=== PATIENT | female | born 1955 | race Caucasian/White ===

== ENCOUNTER → 2018-05-29 | Day surgery (SDC) | payer OTHER ==
[~2018-05-29] MED LIST: CEFTRIAXONE SOD 1 GM VIAL ONE; CYMBALTA30 MG PO; DEXAMETHASONE SOD PHOS INJ 4 MG/ML VIAL ONE; FENTANYL CITRATE/PF 100MCG/2 ML INJ ONE; GLIPIZIDE ER5 MG PO; IOPAMIDOL 610MG/1ML 300 MG/ML VIAL IV ONE; LIDOCAINE HCL 2% LOCAL INJ 5 ML SDV VIAL INJ ONE; METFORMIN HCL500 M2 PO; METOPROLOL TART50 MG PO; MIDAZOLAM HCL 2 MG/2 ML VIAL ONE; NORCO 10-325 T1 EACH PO; OMEPRAZOLE40 MG PO; ONDANSETRON HCL INJ 2 MG/ML VIAL ONE; PROPOFOL IV EMULSION 10 MG/ML 20 ML VIAL ONE; RANITIDINE HCL150 MG PO; SEVOFLURANE INHAL SOLN 250 ML PEN BTL ONE; SYNTHROID100 MCG PO; VIT D2 PO; ZOFRAN ODT4 MG PO; ZOLPIDEM TARTRA10 MG PO
--- OUTSIDE RECORDS SUMMARY | 2018-05-29 08:37 | XMS REPORT ---
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 Role Phone Megan Sanchez CP Unavailable Allergies No Known Allergies Problems Problem Type Condition Code Onset Dates Condition Status Problem Rheumatoid arthritis of multiple sites without rheumatoid factor M06.09 Active Problem Chronic pain disorder G89.4 Active Problem Rheumatoid arthritis without rheumatoid factor, unspecified ankle and foot M06.079 Active Problem Pain in joint, hand 719.44 Active Problem Rheumatoid arthritis without elevated rheumatoid factor M06.00 Active Problem Rheumatoid arthritis 714.0 Active Medications No Known Medications Results No Known Results Summary Purpose [employer] Submission
--- OUTSIDE RECORDS SUMMARY | 2018-05-29 08:37 | XMS REPORT ---
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 Info Not Available Non Drug Allergy Problems Problem Type Condition Code Onset Dates Condition Status Assessment Chronic pain G89.29 Active Assessment Counseling NOS Z71.9 Active Assessment High risk medication use Z79.899 Active Assessment Pain in right hand M79.641 Active Problem Rheumatoid arthritis of multiple sites without rheumatoid factor M06.09 Active Problem Chronic pain disorder G89.4 Active Problem Rheumatoid arthritis without rheumatoid factor, unspecified ankle and foot M06.079 Active Problem Pain in joint, hand 719.44 Active Assessment Rheumatoid arthritis without rheumatoid factor, unspecified ankle and foot M06.079 Active Problem Rheumatoid arthritis without elevated rheumatoid factor M06.00 Active Problem Rheumatoid arthritis 714.0 Active Medications Medication Code System Code Instructions Start Date End Date Status Dosage Levothyroxine Sodium ND 28744431182 Orally Once a day Active 1 tablet on an empty stomach in the morning Lyrica ND 45375732569 75 MG Orally bedtime Active 1 capsule Aspir-81 [facility] 27042988030 81 MG Orally Once a day Active 1 tablet Amitriptyline HCl ND 43238184601 75 MG Orally Once a day Active 1 tablet at bedtime Metoprolol Tartrate ND 79079502001 100 MG Orally Twice a day Active 1 tablet Hydrocodone NDC 0 10.325 Oral BID Jul 13, 2017 Active 1 tab Enbrel SureClick ND 47155426193 50 MG/ML Subcutaneous Once a week Inactive 1 ml Pantoprazole Sodium ND 33489146592 20 MG Orally Once a day Active 1 packet Atorvastatin Calcium ND 93473386580 10 MG Orally Once a day Active 1 tablet Vital Signs Date/Time: May 14, 2017 Height 62 in Blood Pressure Diastolic 78 mm Hg Blood Pressure Systolic 121 mm Hg Weight 177.0 lbs Results No Known Results Summary Purpose [employer] Submission
--- OUTSIDE RECORDS SUMMARY | 2018-05-29 08:37 | XMS REPORT ---
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 Role Phone Megan Sanchez CP Unavailable Allergies No Known Allergies Problems Problem Type Condition Code Onset Dates Condition Status Assessment Chronic pain G89.29 Active Assessment Counseling NOS Z71.9 Active Assessment High risk medication use Z79.899 Active Problem Rheumatoid arthritis of multiple sites without rheumatoid factor M06.09 Active Problem Chronic pain disorder G89.4 Active Problem Rheumatoid arthritis without rheumatoid factor, unspecified ankle and foot M06.079 Active Problem Pain in joint, hand 719.44 Active Assessment Rheumatoid arthritis without rheumatoid factor, unspecified ankle and foot M06.079 Active Problem Rheumatoid arthritis without elevated rheumatoid factor M06.00 Active Problem Rheumatoid arthritis 714.0 Active Assessment Rheumatoid arthritis of multiple sites without rheumatoid factor M06.09 Active Assessment Chronic pain disorder G89.4 Active Assessment Pain in right hand M79.641 Active Assessment Screening for breast cancer Z12.39 Active Assessment Pain of left hand M79.642 Active Medications Medication Code System Code Instructions Start Date End Date Status Dosage Atorvastatin Calcium [facility] [address]-76 10 MG Orally Once a day Active 1 tablet Aspir-81 [facility] [address]-99 81 MG Orally Once a day Active 1 tablet Metoprolol Tartrate [facility] [address]-18 100 MG Orally Twice a day Active 1 tablet Levothyroxine Sodium [facility] [address]-23 Orally Once a day Active 1 tablet on an empty stomach in the morning Enbrel SureClick [facility] [address]-03 50 MG/ML Subcutaneous Once a week Inactive 1 ml Amitriptyline HCl [facility] [address]-89 75 MG Orally Once a day Active 1 tablet at bedtime Pantoprazole Sodium [facility] [address]-29 20 MG Orally Once a day Active 1 packet Orencia ClickJect [facility] [address]-53 125 MG/ML Subcutaneous December 11, 2016 January 10, 2017 Active 1 ml Vital Signs Date/Time: December 11, 2016 Height 62 in Blood Pressure Diastolic 85 mm Hg Blood Pressure Systolic 167 mm Hg Weight 174 lbs Results No Known Results Summary Purpose [employer] Submission
--- OUTSIDE RECORDS SUMMARY | 2018-05-29 08:37 | XMS REPORT | Clinical Summary ---
Author Author [facility] Organization [facility] Address Unknown Phone Unavailable Care Team Providers Care Wheel Lacer And Truer Name Role Phone Gin Sumner MD PCP Allergies No Known Allergies Current Medications Prescription Sig. Disp. Refills Start End Date Status Date metoprolol tartrate Take 50 mg by mouth 2 Active (LOPRESSOR) 50 mg tablet (two) times a day. atorvastatin (LIPITOR) 40 Take 40 mg by mouth 12/27/19 Active MG tablet daily. 17 pantoprazole (PROTONIX) Take 20 mg by mouth 12/27/19 Active 20 MG EC tablet daily. 17 metFORMIN (GLUCOPHAGE) Take 500 mg by mouth 2 12/27/19 Active 500 mg tablet (two) times a day with 17 meals. HYDROcodone-acetaminophen Take 1 tablet by mouth 2 12/27/19 Active (NORCO) 10-325 mg per (two) times a day. 17 tablet aspirin (ECOTRIN) 81 MG Take 81 mg by mouth 12/27/19 Active enteric coated tablet daily. 17 amitriptyline (ELAVIL) 75 Take 37.5 mg by mouth 12/27/19 Active MG tablet nightly. 17 Active Problems Problem Noted Date Chest pain 12/26/2016 Family History Medical History Relation Name Comments Cancer Father Kidney disease Father Miscarriages / Father Stillbirths COPD Mother Relation Name Status Comments Father Mother Social History Tobacco Use Types Packs/Day Years Used Date Former Smoker Cigarettes Quit: 12/26/1981 Alcohol Use Drinks/Week oz/Week Comments Yes 1 Glasses of 0.6 veryb seldom wine Sex Assigned at Date Recorded Not on file Last Filed Vital Signs Not on file Plan of Treatment Health Maintenance Due Date Last Done Comments CERVICAL CANCER SCREENING 12/04/1975 BREAST CANCER SCREENING 2004 COLON CANCER SCREENING 2004 SHINGRIX VACCINE (#1) 2004 ZOSTER VACCINE 2014 INFLUENZA VACCINE 03/05/2018 Results Not on fileafter 05/28/2017 Insurance Payer Benefit Subscriber ID Type Phone Address Plan / Group Buggl [facility] xxxxxxxxxxxx Exchange EXCHANGE [facility] EXCHANGE [employer] E
--- OUTSIDE RECORDS SUMMARY | 2018-05-29 08:37 | XMS REPORT | Continuity of Care Document ---
Author Author [facility] Interface Address Unknown Phone Unavailable Problems Problem Status Onset Date Classification Date Reported Comments Source Rheumatoid arthritis of multiple sites without rheumatoid factor Active Problem 04/03/2018 Megan Naconradm Chronic pain disorder Active Problem 04/03/2018 Megan Najam Rheumatoid arthritis without rheumatoid factor, unspecified ankle and foot Active Diagnosis 04/03/2018 Megan Najam Pain in joint, hand Active Problem 04/03/2018 Megan Najam Rheumatoid arthritis without elevated rheumatoid factor Active Problem 04/03/2018 Megan Najam Rheumatoid arthritis Active Problem 04/03/2018 Megan Naconradm Chronic pain Active Diagnosis 04/03/2018 Megan Ariellem Counseling NOS Active Diagnosis 04/03/2018 Megan Daniel High risk medication use Active Diagnosis 04/03/2018 Megan Naconradm Pain in right hand Active Diagnosis 04/03/2018 Megan Naconradm Screening for breast cancer Active Diagnosis 03/14/2017 Megan Naconradm Pain of left hand Active Diagnosis 03/14/2017 Megan Donaldsonbel Primary insomnia Active Problem 04/03/2018 Megan Daniel monitorring of highrisk meds Active Diagnosis 08/13/2014 Megan Ariellem Counseling NOS Active Diagnosis 11/28/2014 Megan Naconradm Cervical radicular pain Active Diagnosis 08/08/2016 Megan Naconradm Right hand pain Active Diagnosis 01/26/2016 Megan Naconradm Rheumatoid arthritis without rheumatoid factor Active Diagnosis 03/27/2016 Megan Daniel Unspecified 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 hepatic coma Active Diagnosis 11/28/2014 Megan Daniel Chronic pain syndrome Active Diagnosis 11/28/2014 Megan Sanchez Medications Medication Details Route Status Patient Instructions Ordering Provider Order Date Source Hydrocodone-Acetaminophen 1 tablet as needed Orally Active 10- 325 MG Orally bid Najam 03/23/2018 Megan Naconradm Cyclobenzaprine HCl 1 tablet as needed Orally Active 10 mg Orally bedtime Najam 09/17/2017 Megan Naconradm Hydrocodone 1 tab Oral Active 10.325 Oral BID Najam 07/13/2017 Megan Daniel Lyrica 1 capsule Orally Active 75 MG Orally Twice a day [facility] 02/12/2017 Megankelvin Sanchez Orencia ClickJect 1 ml Subcutaneous Active 125 MG/ML Subcutaneous [facility] 12/11/2016 Megan Daniel Hydrocodone 1 tab Oral Active 10.325 Oral BID [facility] 2016 Megan Daniel Enbrel SureClick 1 ml Subcutaneous Active 50 MG/ML Subcutaneous Once a week [facility] 09/25/2016 Megan Nabel Hydrocodone 1 tab Oral Active 10.325 Oral BID [facility] 05/25/2016 Megan Nabel Hydrocodone 1 tab Oral Active 10.325 Oral BID [facility] 03/25/2016 Megan Daniel Hydrocodone-Acetaminophen 1 tablet as needed Orally Active 10- 325 MG Orally every 6 hrs [facility] 06/09/2015 Megan Daniel Enbrel SureClick 1 ml Subcutaneous Active 50 MG/ML Subcutaneous once weekly [facility] 07/13/2014 Megankelvin Sanchez Humira Pen 0.8 Subcutaneous No Longer Active 40 MG/0.8ML Subcutaneous every 2 weeks [facility] 10/27/2012 Megan Nabel Atorvastatin Calcium 1 tablet Orally Active 10 MG [facility]ally [facility] Aspir-81 1 tablet Orally Active 81 MG [facility] Metoprolol Tartrate 1 tablet Orally Active 100 MG [facility] Levothyroxine Sodium 1 tablet on an empty stomach in the morning Orally Active Orally Once a day [facility] Megan Naconrad Enbrel SureClick 1 ml Subcutaneous Active 50 MG/ML Subcutaneous [facility] Amitriptyline HCl 1 tablet at bedtime Orally Active 75 MG Orally Once a day [place] Megan Najam Pantoprazole Sodium 1 packet Orally Active 20 MG Orally Once a day [place] Megan Naja Levothyroxine Sodium 1 tablet on an empty stomach in the morning Orally Active Orally Once a day [place] Megan Naconradm Lyrica 1 capsule Orally Active 75 MG Orally [facility] Aspir-81 1 tablet Orally Active 81 MG Orally Once a day [place] Megan Najam Amitriptyline HCl 1 tablet at bedtime Orally Active 75 MG Orally Once a day N[facility]rad Megan Sanchez Metoprolol Tartrate 1 tablet Orally Active 100 MG Orally Twice a day [facility] Megan Guzmán Enbrel SureClick 1 ml Subcutaneous Active 50 MG/ML Subcutaneous Once a week [facility] Megan Nabel Pantoprazole Sodium 1 packet Orally Active 20 MG Orally Once a day [facility] Megan Nabel Atorvastatin Calcium 1 tablet Orally Active 10 MG Orally Once a day [facility] Megan Naconrad Hydrocodone-Acetaminophen 1 tablet as needed Orally Active 10- 325 MG Orally bid [facility] Megan Nabel GlipiZIDE 1 tablet Orally Active 10 MG Orally Once a day Arielle Megan Guzmán Cyclobenzaprine HCl 1 tablet as needed Orally Active 10 mg Orally bedtime Arielle Megan Nabel Nexium 1 capsule Orally Active 20 MG Orally Once a day Arielle Megan Naconrad Omeprazole 1 capsule Orally Active 40 MG Orally Once a day Arielle Megan Guzmán Lyrica 1 capsule Orally Active 75 MG Orally Twice a day Arielle Megan Guzmán Losartan Potassium 1 tablet Orally Active 50 MG Orally Once a day [facility] Megan Guzmán Levothyroxine Sodium 1 tablet on an empty stomach in the morning Orally Active 50 MCG Orally Once a day [facility] Megan Guzmán Hydrocodone-Acetaminophen 1 tablet as needed Orally Active 10- 325 MG Orally every 6 hrs [facility] Megan Guzmán Enbrel SureClick INJECT 50MG SUBCUTANEOUSLY ONCE WEEKLY DIRECTED NA Active 50 MG/ML N[facility] Megan Nabel Etanercept 1 ml Subcutaneous Active 50 MG/ML Subcutaneous once a week [facility] Megan Guzmán Hydrocodone 1 tab Oral Active Oral BID N[facility]rad Megan Naconrad Allergies, Adverse Reactions, Alerts Substance Category Reaction Severity Reaction type Status Date Reported Comments Source codiene Adverse Reaction itching Adverse Reaction Active 11/25/2014 Megan Daniel PugaKDianeA. Adverse Reaction Info Not Available Adverse Reaction Active 04/02/2018 Megan Sanchez Immunizations Immunization Date Given Site Status Last Updated Comments Source Results Order Name Results Value Reference Range Date Interpretation Comments Source Vital Signs Vital Sign Value Date Comments Source Height 62 04/02/2018 Megan Naconradm Diastolic (mm Hg) 69 04/02/2018 Megan Najam Systolic (mm Hg) 123 04/02/2018 Megan Najam Weight 165.6 04/02/2018 Megan Najam Height 62 01/22/2018 Megan Najam Diastolic (mm Hg) 100 01/22/2018 Megan Najam Systolic (mm Hg) 131 01/22/2018 Megan Najam Weight 176.6 01/22/2018 Megan Najam Height 62 11/20/2017 Megan Najam Diastolic (mm Hg) 85 11/20/2017 Megan Najam Systolic (mm Hg) 172 11/20/2017 Megan Najam Weight 179.8 11/20/2017 Megan Najam Height 62 09/17/2017 Megan Najam Diastolic (mm Hg) 79 09/17/2017 Megan Najam Systolic (mm Hg) 142 09/17/2017 Megan Najam Weight 180 09/17/2017 Megan Najam Height 62 07/16/2017 Megan Najam Diastolic (mm Hg) 86 07/16/2017 Megan Najam Systolic (mm Hg) 146 07/16/2017 Megan Najam Weight 180.6 07/16/2017 Megan Najam Height 62 05/14/2017 Megan Najam Diastolic (mm Hg) 78 05/14/2017 Megan Najam Systolic (mm Hg) 121 05/14/2017 Megan Najam Weight 177.0 05/14/2017 Megan Najam Height 62 03/12/2017 Megan Najam Diastolic (mm Hg) 82 03/12/2017 Megan Najam Systolic (mm Hg) 138 03/12/2017 Megan Najam Weight 178 03/12/2017 Megan Najam Height 62 02/12/2017 Megan Najam Diastolic (mm Hg) 77 02/12/2017 Megan Najam Systolic (mm Hg) 132 02/12/2017 Megan Najam Weight 175 02/12/2017 Megan Najam Height 62 12/11/2016 Megan Najam Diastolic (mm Hg) 85 12/11/2016 Megan Najam Systolic (mm Hg) 167 12/11/2016 Megan Najam Weight 174 12/11/2016 Megan Najam Height 62 10/04/2016 Megan Najam Diastolic (mm Hg) 79 10/04/2016 Megan Najam Systolic (mm Hg) 158 10/04/2016 Megan Najam Weight 178.2 10/04/2016 Megan Najam Height 62 09/25/2016 Megan Najam Diastolic (mm Hg) 79 09/25/2016 Megan Najam Systolic (mm Hg) 133 09/25/2016 Megan Najam Weight 177.8 09/25/2016 Megan Najam Height 62 08/07/2016 Megan Najam Diastolic (mm Hg) 77 08/07/2016 Megan Najam Systolic (mm Hg) 151 08/07/2016 Megan Najam Weight 179 08/07/2016 Megan Najam Height 62 06/13/2016 Megan Najam Diastolic (mm Hg) 89 06/13/2016 Megan Najam Systolic (mm Hg) 140 06/13/2016 Megan Najam Weight 176 06/13/2016 Megan Najam Height 62 03/26/2016 Megan Najam Diastolic (mm Hg) 74 03/26/2016 Megan Najam Systolic (mm Hg) 127 03/26/2016 Megan Najam Weight 179.8 03/26/2016 Megan Najam Height 62 01/25/2016 Megan Najam Diastolic (mm Hg) 99 01/25/2016 Megan Najam Systolic (mm Hg) 171 01/25/2016 Megan Najam Weight 179.6 01/25/2016 Megan Najam Height 62 11/07/2015 Megan Najam Diastolic (mm Hg) 80 11/07/2015 Megan Najam Systolic (mm Hg) 174 11/07/2015 Megan Najam Weight 171 11/07/2015 Megan Najam Height 62 11/25/2014 Megan Najam Diastolic (mm Hg) 82 11/25/2014 Megan Najam Systolic (mm Hg) 157 11/25/2014 Megan Najam Weight 182 11/25/2014 Megan Najam Height 62 08/12/2014 Megan Najam Diastolic (mm Hg) 70 08/12/2014 Megan Najam Systolic (mm Hg) 125 08/12/2014 Megan Najam Weight 170 08/12/2014 Megan Sanchez Height 62 07/13/2014 Megan Sanchez Diastolic (mm Hg) 80 07/13/2014 Megan Sanchez Systolic (mm Hg) 162 07/13/2014 Megan Sanchez Weight 170 07/13/2014 Megan aSnchez Encounters Location Location Details Encounter Type Encounter Number Reason For Visit Attending Provider ADM Date DC Date Status Source Rheumatology Clinic Follow Up MRI Results [id number] 07/13/2014 07/13/2014 Megan Sanchez [facility] Follow Up MRI Results [id number] 07/13/2014 07/13/2014 Megan Sanchez [facility] Follow Up MRI Results [id number] 07/13/2014 07/13/2014 Megan Sanchez [facility] Follow Up MRI Results [id number] 07/13/2014 07/13/2014 Megan Sanchez [facility] Follow Up MRI Results [id number] 07/13/2014 07/13/2014 Megan Sanchez [facility] Follow Up MRI Results [id number] 07/13/2014 07/13/2014 Megan Guzmán [facility] Follow Up MRI Results [id number] 07/13/2014 07/13/2014 Megan Sanchez [facility] Follow Up MRI Results [id number] 07/13/2014 07/13/2014 Megan Sanchez [facility] Follow Up MRI Results [id number] 07/13/2014 07/13/2014 Megankelvin Sanchez [facility] Follow Up MRI Results [id number] 07/13/2014 07/13/2014 [facility] Follow Up MRI Results [id number] 07/13/2014 07/13/2014 [facility] Follow Up MRI Results [id number] 07/13/2014 07/13/2014 [facility] Follow Up MRI Results [id number] 07/13/2014 07/13/2014 [facility] Follow Up MRI Results [id number] 07/13/2014 07/13/2014 [facility] Follow Up MRI Results [id number] 07/13/2014 07/13/2014 [facility] pain contract follow [place] [id number] 08/12/2014 08/12/2014 [facility] pain contract follow up [id number] 08/12/2014 08/12/2014 [facility] pain contract follow up [id number] 08/12/2014 08/12/2014 [facility] pain contract follow up [id number] 08/12/2014 08/12/2014 [facility] pain contract follow up [id number] 08/12/2014 08/12/2014 [facility] pain contract follow up [id number] 08/12/2014 08/12/2014 [facility] pain contract follow up [id number] 08/12/2014 08/12/2014 [facility] pain contract follow up [id number] 08/12/2014 08/12/2014 [facility] pain contract follow up [id number] 08/12/2014 08/12/2014 [facility] pain contract follow up [id number] 08/12/2014 08/12/2014 [facility] pain contract follow up [id number] 08/12/2014 08/12/2014 [facility] pain contract follow up [id number] 08/12/2014 08/12/2014 [facility] pain contract follow up [id number] 08/12/2014 08/12/2014 [facility] pain contract follow up [id number] 08/12/2014 08/12/2014 [facility] patient credit [id number] 09/10/2014 09/10/2014 [facility] patient credit [id number] 09/10/2014 09/10/2014 [facility] patient credit [id number] 09/10/2014 09/10/2014 [facility] patient credit [id number] 09/10/2014 09/10/2014 [facility] patient credit [id number] 09/10/2014 09/10/2014 [facility] patient credit [id number] 09/10/2014 09/10/2014 [facility] patient credit [id number] 09/10/2014 09/10/2014 [facility] patient credit [id number] 09/10/2014 09/10/2014 [facility] patient credit [id number] 09/10/2014 09/10/2014 [facility] patient credit [id number] 09/10/2014 09/10/2014 [facility] patient credit [id number] 09/10/2014 09/10/2014 [facility] patient credit [id number] 09/10/2014 09/10/2014 [facility] patient credit [id number] 09/10/2014 09/10/2014 [facility] Follow up Routine [id number] 09/27/2014 09/27/2014 [facility] Follow up Routine [id number] 09/27/2014 09/27/2014 [facility] Follow up Routine [id number] 09/27/2014 09/27/2014 [facility] Follow up Routine [id number] 09/27/2014 09/27/2014 [facility] Follow up Routine [id number] 09/27/2014 09/27/2014 [facility] Follow up Routine [id number] 09/27/2014 09/27/2014 [facility] Follow up Routine [id number] 09/27/2014 09/27/2014 [facility] Follow up Routine [id number] 09/27/2014 09/27/2014 [facility] Follow up Routine [id number] 09/27/2014 09/27/2014 [facility] Follow up Routine [id number] 09/27/2014 09/27/2014 [facility] Follow up Routine [id number] 09/27/2014 09/27/2014 [facility] Follow up Routine [id number] 09/27/2014 09/27/2014 [facility] Follow up Routine [id number] 09/27/2014 09/27/2014 [facility] pain contract follow up [id number] 11/25/2014 11/25/2014 [facility] pain contract follow up [id number] 11/25/2014 11/25/2014 [facility] pain contract follow up [id number] 11/25/2014 11/25/2014 Megan Guzmán [facility] pain contract follow up [id number] 11/25/2014 11/25/2014 [facility] pain contract follow up [id number] 11/25/2014 11/25/2014 [facility] pain contract follow up [id number] 11/25/2014 11/25/2014 [facility] pain contract follow up [id number] 11/25/2014 11/25/2014 [facility] pain contract follow up [id number] 11/25/2014 11/25/2014 [facility] pain contract follow up [id number] 11/25/2014 11/25/2014 [facility] pain contract follow up [id number] 11/25/2014 11/25/2014 [facility] pain contract follow up [id number] 11/25/2014 11/25/2014 [facility] pain contract follow up [id number] 11/25/2014 11/25/2014 [facility] pain contract follow up [id number] 11/25/2014 11/25/2014 [facility] pain contract follow up [id number] 01/27/2015 01/27/2015 [facility] pain contract follow up [id number] 01/27/2015 01/27/2015 [facility] pain contract follow up [id number] 01/27/2015 01/27/2015 [facility] pain contract follow up [id number] 01/27/2015 01/27/2015 [facility] pain contract follow up [id number] 01/27/2015 01/27/2015 [facility] pain contract follow up [id number] 01/27/2015 01/27/2015 [facility] pain contract follow up [id number] 01/27/2015 01/27/2015 [facility] pain contract follow up [id number] 01/27/2015 01/27/2015 [facility] pain contract follow up [id number] 01/27/2015 01/27/2015 [facility] pain contract follow up [id number] 01/27/2015 01/27/2015 [facility] pain contract follow up [id number] 01/27/2015 01/27/2015 [facility] pain contract follow up [id number] 01/27/2015 01/27/2015 [facility] Enbrel refill [id number] 01/28/2015 01/28/2015 Megan Sanchez [facility] Enbrel refill [id number] 01/28/2015 01/28/2015 Megan Guzmán [facility] Enbrel refill [id number] 01/28/2015 01/28/2015 Megan Sanchez [facility] Enbrel refill [id number] 01/28/2015 01/28/2015 Megan Guzmán [facility] Enbrel refill [id number] 01/28/2015 01/28/2015 [facility]rel refill [id number] 01/28/2015 01/28/2015 Megan Guzmán [facility] Enbrel refill [id number] 01/28/2015 01/28/2015 [facility] Enbrel refill [id number] 01/28/2015 01/28/2015 [facility] En[facility]rel refill [id number] 01/28/2015 01/28/2015 Megan Guzmán [facility] Enbrel refill [id number] 01/28/2015 01/28/2015 [facility] Enbrel refill [id number] 01/28/2015 01/28/2015 [facility] Enbrel refill [id number] 01/28/2015 01/28/2015 [facility] [place] review labs, urine culture [id number] 02/02/2015 02/02/2015 [facility] [place] review labs, urine culture [id number] 02/02/2015 02/02/2015 [facility] [place] review labs, urine culture [id number] 02/02/2015 02/02/2015 [facility] [place] review labs, urine culture [id number] 02/02/2015 02/02/2015 [facility] [place] review labs, urine culture [id number] 02/02/2015 02/02/2015 [facility] [place] review labs, urine culture [id number] 02/02/2015 02/02/2015 [facility] [place] review labs, urine culture [id number] 02/02/2015 02/02/2015 [facility] [place] review labs, urine culture [id number] 02/02/2015 02/02/2015 [facility] [place] review labs, urine culture [id number] 02/02/2015 02/02/2015 [facility] [place] review labs, urine culture [id number] 02/02/2015 02/02/2015 [facility] [place] review labs, urine culture [id number] 02/02/2015 02/02/2015 [facility] [place] labs, urine culture [id number] 02/02/2015 02/02/2015 [facility] Follow up Routine [id number] 05/10/2015 05/10/2015 [facility] Follow up Routine [id number] 05/10/2015 05/10/2015 [facility] Follow up Routine [id number] 05/10/2015 05/10/2015 [facility] Follow up Routine [id number] 05/10/2015 05/10/2015 [facility] Follow up Routine [id number] 05/10/2015 05/10/2015 [facility] Follow up Routine [id number] 05/10/2015 05/10/2015 [facility] Follow up Routine [id number] 05/10/2015 05/10/2015 [facility] Follow up Routine [id number] 05/10/2015 05/10/2015 [facility] Follow up Routine [id number] 05/10/2015 05/10/2015 [facility] Follow up Routine [id number] 05/10/2015 05/10/2015 [facility] Follow up Routine [id number] 05/10/2015 05/10/2015 [facility] Follow up Routine [id number] 05/10/2015 05/10/2015 [facility] sig missing [id number] 05/10/2015 05/10/2015 [facility] sig missing [id number] 05/10/2015 05/10/2015 [facility] sig missing [id number] 05/10/2015 05/10/2015 [facility] sig missing [id number] 05/10/2015 05/10/2015 [facility] [facility] sig missing [id number] 05/10/2015 05/10/2015 [facility] sig missing [id number] 05/10/2015 05/10/2015 [facility] sig missing [id number] 05/10/2015 05/10/2015 [facility] sig missing [id number] 05/10/2015 05/10/2015 [facility] sig missing [id number] 05/10/2015 05/10/2015 [facility] sig missing [id number] 05/10/2015 05/10/2015 [facility] sig missing [id number] 05/10/2015 05/10/2015 [facility] sig missing [id number] 05/10/2015 05/10/2015 [facility] disregard [id number] 05/15/2015 05/15/2015 [facility] disregard [id number] 05/15/2015 05/15/2015 [facility] disregard [id number] 05/15/2015 05/15/2015 [facility] disregard [id number] 05/15/2015 05/15/2015 [facility] disregard [id number] 05/15/2015 05/15/2015 [facility] disregard [id number] 05/15/2015 05/15/2015 [facility] disregard [id number] 05/15/2015 05/15/2015 [facility] disregard [id number] 05/15/2015 05/15/2015 [facility] disregard [id number] 05/15/2015 05/15/2015 [facility] disregard [id number] 05/15/2015 05/15/2015 [facility] disregard [id number] 05/15/2015 05/15/2015 [facility] disregard [id number] 05/15/2015 05/15/2015 [facility] needs f/up OV [id number] 06/23/2015 06/23/2015 [facility] needs f/up OV [id number] 06/23/2015 06/23/2015 [facility] needs f/up OV [id number] 06/23/2015 06/23/2015 [facility] needs f/up OV [id number] 06/23/2015 06/23/2015 [facility] needs f/up OV [id number] 06/23/2015 06/23/2015 [facility] needs f/up OV [id number] 06/23/2015 06/23/2015 [facility] needs f/up OV [id number] 06/23/2015 06/23/2015 [facility] needs f/up OV [id number] 06/23/2015 06/23/2015 [facility] needs f/up OV [id number] 06/23/2015 06/23/2015 [facility] needs f/up OV [id number] 06/23/2015 06/23/2015 [facility] needs f/up OV [id number] 06/23/2015 06/23/2015 [facility] No show visit 12/3 [id number] 08/15/2015 08/15/2015 [facility] No show visit 12/3 [id number] 08/15/2015 08/15/2015 [facility] No show visit 12/3 [id number] 08/15/2015 08/15/2015 [facility] No show visit 12/3 [id number] 08/15/2015 08/15/2015 [facility] No show visit 12/3 [id number] 08/15/2015 08/15/2015 [facility] No show visit 12/3 [id number] 08/15/2015 08/15/2015 [facility] No show visit 12/3 [id number] 08/15/2015 08/15/2015 [facility] No show visit 12/3 [id number] 08/15/2015 08/15/2015 [facility] No show visit 12/3 [id number] 08/15/2015 08/15/2015 [facility] Follow up [id number] 11/07/2015 11/07/2015 [facility] Follow up [id number] 11/07/2015 11/07/2015 [facility] Follow up [id number] 11/07/2015 11/07/2015 [facility] Follow up [id number] 11/07/2015 11/07/2015 [facility] Follow up [id number] 11/07/2015 11/07/2015 [facility] Follow up [id number] 11/07/2015 11/07/2015 [facility] Follow up [id number] 11/07/2015 11/07/2015 [facility] Follow up [id number] 11/07/2015 11/07/2015 [facility] Follow up [id number] 11/07/2015 11/07/2015 [facility] Follow up [id number] 11/07/2015 11/07/2015 [facility] question on pain [id number] 12/19/2015 12/19/2015 [facility] question on pain [id number] 12/19/2015 12/19/2015 [facility] question on pain [id number] 12/19/2015 12/19/2015 [facility] question on pain [id number] 12/19/2015 12/19/2015 [facility] question on pain [id number] 12/19/2015 12/19/2015 [facility] question on pain [id number] 12/19/2015 12/19/2015 [facility] question on pain [id number] 12/19/2015 12/19/2015 [facility] question on pain [id number] 12/19/2015 12/19/2015 [facility] pain contract [id number] 01/25/2016 01/25/2016 [facility] pain contract [id number] 01/25/2016 01/25/2016 [facility] pain contract [id number] 01/25/2016 01/25/2016 [facility] pain contract [id number] 01/25/2016 01/25/2016 [facility] pain contract [id number] 01/25/2016 01/25/2016 [facility] pain contract [id number] 01/25/2016 01/25/2016 [facility] pain contract [id number] 01/25/2016 01/25/2016 [facility] Pain Contract [id number] 03/26/2016 03/26/2016 [facility] [id number] 03/26/2016 03/26/2016 [facility] Pain Contract [id number] 03/26/2016 03/26/2016 [facility] Pain Contract [id number] 03/26/2016 03/26/2016 [facility] Pain Contract [id number] 03/26/2016 03/26/2016 [facility] Pain Contract [id number] 03/26/2016 03/26/2016 [facility] 2 month f/u [id number] 06/13/2016 06/13/2016 [facility] 2 month f/u [id number] 06/13/2016 06/13/2016 [facility] 2 month f/u [id number] 06/13/2016 06/13/2016 [facility] 2 month f/u [id number] 06/13/2016 06/13/2016 [facility] 2 month f/u [id number] 06/13/2016 06/13/2016 [facility] pain contract [id number] 08/07/2016 08/07/2016 [facility] Clinic pain contract [id number] 08/07/2016 08/07/2016 [facility] pain contract [id number] 08/07/2016 08/07/2016 [facility] pain contract [id number] 08/07/2016 08/07/2016 [facility] HAND PAIN [id number] 09/25/2016 09/25/2016 [facility] HAND PAIN [id number] 09/25/2016 09/25/2016 [facility] Rhe[facility] HAND PAIN [id number] 09/25/2016 09/25/2016 [facility] enbrel refill request [id number] 10/01/2016 10/01/2016 [facility] enbrel refill request [id number] 10/01/2016 10/01/2016 [facility] [id number] 10/04/2016 10/04/2016 Meg[facility]elvin Sanchez Procedures Procedure Code Date Perfomer Comments Source
--- OUTSIDE RECORDS SUMMARY | 2018-05-29 08:38 | XMS REPORT ---
Author Megan Park Organization [employer] Address Unknown Phone Unavailable Care Team Providers Care Icing And Glaze Maker Name Role Phone Megan Sanchez CP Unavailable Allergies, Adverse Reactions, Alerts Substance Reaction Event Type codiene itching Non Drug Allergy Encounters Encounter Location Date Follow Up MRI Results [facility]ology [facility] Jul 13, 2014 Problems Problem Type Condition ICD-9 Code Onset Dates Condition Status Problem Pain in joint, hand 719.44 Active Assessment Rheumatoid arthritis 714.0 Active Problem Rheumatoid arthritis 714.0 Active Assessment monitorring of [employer] meds V58.69 Active Assessment Pain in joint, hand 719.44 Active Assessment Counseling NOS V65.40 Active Medications Medication Code System Code Instructions Start Date End Date Status Dosage Amitriptyline HCl [facility] [address]-54 75 MG Orally Once a day Active 1 tablet at bedtime Enbrel SureClick [facility] [address]-12 50 MG/ML Subcutaneous once weekly Jul 13, 2014 October 11, 2014 Active 1 ml [facility] [address]-09 40 MG/0.8ML Subcutaneous every 2 weeks October 27, 2012 February 06, 2014 Inactive 0.8 Metoprolol Tartrate [facility] [address]-12 100 MG Orally Twice a day Active 1 tablet Losartan Potassium [facility] [address]-97 50 MG Orally Once a day Active 1 tablet Levothyroxine Sodium [facility] [address]-05 50 MCG Orally Once a day Active 1 tablet on an empty stomach in the morning Hydrocodone-Acetaminophen [facility] [address]-59 10-325 MG Orally every 6 hrs Active 1 tablet as needed Social History Social History Element Qualifiers Date Reported IV Drug abuse no. Jul 13, 2014 Smoking status: . Are you a: Never Smoker Jul 13, 2014 alcohol no. Jul 13, 2014 Vital Signs Date/Time: Jul 13, 2014 Height 62 in Blood Pressure Diastolic 80 mm Hg Blood Pressure Systolic 162 mm Hg Weight 170 lbs Summary Purpose [employer] Submission
--- OUTSIDE RECORDS SUMMARY | 2018-05-29 08:38 | XMS REPORT ---
Author Author Megan Sanchez [facility] [employer] Address Unknown Phone Unavailable Care Team Providers Care Produce Runner Name Role Phone Megan Sanchez CP Unavailable [...] Date End Date Status Dosage Amitriptyline HCl [facility] [address]-44 75 MG Orally Once a day Active 1 tablet at bedtime Metoprolol Tartrate [facility] [address]-31 100 MG Orally Twice a day Active 1 tablet Aspir-81 [facility] [address]-88 81 MG Orally Once a day Active 1 tablet Pantoprazole Sodium [facility] [address]-32 20 MG Orally Once a day Active 1 packet Enbrel SureClick [facility] [address]-85 50 MG/ML Subcutaneous Once a week Inactive 1 ml Lyrica [facility] [address]-70 75 MG Orally Twice a day February 12, 2017 Active 1 capsule Levothyroxine Sodium [facility] [address]-26 Orally Once a day Active 1 tablet on an empty stomach in the morning Atorvastatin Calcium [facility] [address]-13 10 MG Orally Once a day Active 1 tablet Vital Signs Date/Time: February 12, 2017 Height 62 in Blood Pressure Diastolic 77 mm Hg Blood Pressure Systolic 132 mm Hg Weight 175 lbs Results No Known Results Summary Purpose [employer] Submission
--- OUTSIDE RECORDS SUMMARY | 2018-05-29 08:38 | XMS REPORT ---
Author Author Megan Sanchez [facility] [employer] Address Unknown Phone Unavailable Care Team Providers Care Copper Plate Lithographer Name Role Phone Megan Sanchez CP Unavailable Allergies, Adverse Reactions, Alerts Substance Reaction Event Type N.K.D.A. Info Not Available Non Drug Allergy Encounters Encounter Location Date Follow up Routine [facility]ology Clinic Sep 27, 2014 pain contract follow up [facility] November 25, 2014 pain contract follow up [facility] January 27, 2015 Enbrel refill [facility] January 28, 2015 Follow Up MRI Results [facility]ology Clinic Jul 13, 2014 pain contract follow up [facility] Aug 12, 2014 patient credit [facility] Sep 10, 2014 Follow up Routine [facility] May 10, 2015 PA review labs, urine culture [facility] February 01, 2015 sig missing [facility] May 10, 2015 Pain Contract [facility] Mar 26, 2016 2 month f/u [facility] Jun 13, 2016 question on pain [facility] December 19, 2015 pain contract [facility] January 25, 2016 Follow up [facility] November 07, 2015 No show visit /3 [facility] Aug 15, 2015 disregard [facility] May 15, 2015 needs f/up OV [facility] Jun 23, 2015 pain contract [facility] Aug 07, 2016 Problems Problem Type Condition ICD-9 Code Onset Dates Condition Status Assessment Pain in right hand M79.641 Active Assessment Chronic pain G89.29 Active Assessment Pain of left hand M79.642 Active Assessment Chronic pain disorder G89.4 Active Problem Rheumatoid arthritis without elevated rheumatoid factor M06.00 Active Problem Rheumatoid arthritis 714.0 Active Problem Chronic pain disorder G89.4 Active Assessment High risk medication use Z79.899 Active Assessment Cervical radicular pain M54.12 Active Problem Pain in joint, hand 719.44 Active Assessment Counseling NOS Z71.9 Active Medications Medication Code System Code Instructions Start Date End Date Status Dosage [facility]othyroxine S[facility] [address]-24 Orally Once a day Active 1 tablet on an empty stomach in the morning Metoprolol Tartrate [facility] [address]-80 100 MG Orally Twice a day Active 1 tablet Atorvastatin Calcium [facility] [address]-29 10 MG Orally Once a day Active 1 tablet Amitriptyline HCl [facility] [address]-88 75 MG Orally Once a day Active 1 tablet at bedtime Pantoprazole Sodium [facility] [address]-59 20 MG Orally Once a day Active 1 packet Aspir-81 [facility] [address]-36 81 MG Orally Once a day Active 1 tablet Social History Social History Element Qualifiers Date Reported IV Drug abuse no. Aug 07, 2016 Smoking status: . Are you a: Never Smoker Aug 07, 2016 alcohol no. Aug 07, 2016 Vital Signs Date/Time: Aug 07, 2016 Height 62 in Blood Pressure Diastolic 77 mm Hg Blood Pressure Systolic 151 mm Hg Weight 179 lbs Summary Purpose [employer] Submission
--- OUTSIDE RECORDS SUMMARY | 2018-05-29 08:38 | XMS REPORT ---
Author Author Megan Sanchez Organization [employer] Address Unknown Phone Unavailable Care Team Providers Care Chief Design Drafter Name Role Phone Megan Sanchez CP Unavailable [...] sig missing [facility]ology [facility] May 10, 2015 question on pain [facility] December 19, 2015 pain contract [facility] January 25, 2016 Follow up [facility]ology [facility] November 07, 2015 No show visit /3 [facility]ology Clinic Aug 15, 2015 disregard [facility] May 15, 2015 needs f/up OV [facility]ology Clinic Jun 23, 2015 Problems Problem Type Condition ICD-9 Code Onset Dates Condition Status Assessment Cervical radicular pain M54.12 Active Assessment Chronic pain G89.29 Active Problem Rheumatoid arthritis 714.0 Active Problem Pain in joint, hand 719.44 Active Problem Rheumatoid arthritis without elevated rheumatoid factor M06.00 Active Assessment High risk medication use Z79.899 Active Assessment Right hand pain M79.641 Active Assessment Rheumatoid arthritis without rheumatoid factor M06.00 Active Assessment Counseling NOS Z71.9 Active Medications Medication Code System Code Instructions Start Date End Date Status Dosage [facility] [address]-77 Orally Once a day Active 1 tablet on an empty stomach in the morning Atorvastatin Calcium [facility] [address]-38 10 MG Orally Once a day Active 1 tablet Pantoprazole Sodium [facility] [address]-07 20 MG Orally Once a day Active 1 packet Enbrel SureClick [facility] 04205363115 50 MG/ML Active INJECT 50MG SUBCUTANEOUSLY ONCE WEEKLY DIRECTED Metoprolol Tartrate [facility] [address]-05 100 MG Orally Twice a day Active 1 tablet Amitriptyline HCl [facility] [address]-78 75 MG Orally Once a day Active 1 tablet at bedtime Hydrocodone Unknown 0 10.325 Oral BID Mar 25, 2016 Active 1 tab Aspir-81 [facility] [address]-03 81 MG Orally Once a day Active 1 tablet Etanercept [facility] [address]-63 50 MG/ML Subcutaneous once a week Active 1 ml Social History Social History Element Qualifiers Date Reported IV Drug abuse no. January 25, 2016 Smoking status: . Are you a: Never Smoker January 25, 2016 alcohol no. January 25, 2016 Vital Signs Date/Time: January 25, 2016 Height 62 in Blood Pressure Diastolic 99 mm Hg Blood Pressure Systolic 171 mm Hg Weight 179.6 lbs Summary Purpose [employer]ClinicalWorks Submission
--- OUTSIDE RECORDS SUMMARY | 2018-05-29 08:38 | XMS REPORT ---
Author Author Megan Sanchez [facility] [employer] Address Unknown Phone Unavailable Care Team Providers Care Teacher Adult Education Name Role Phone Megan Sanchez CP Unavailable Allergies, Adverse Reactions, Alerts Substance Reaction Event Type N.K.D.A. Info Not Available Non Drug Allergy Problems Problem Type Condition Code Onset Dates Condition Status Assessment High risk medication use Z79.899 Active Assessment Rheumatoid arthritis without rheumatoid factor, unspecified ankle and foot M06.079 Active Assessment Counseling NOS Z71.9 Active Problem Rheumatoid arthritis without rheumatoid factor, unspecified ankle and foot M06.079 Active Problem Rheumatoid arthritis of multiple sites without rheumatoid factor M06.09 Active Problem Primary insomnia F51.01 Active Problem Rheumatoid arthritis 714.0 Active Problem Pain in joint, hand 719.44 Active Problem Chronic pain disorder G89.4 Active Problem Rheumatoid arthritis without elevated rheumatoid factor M06.00 Active Assessment Primary insomnia F51.01 Active Assessment Pain in right hand M79.641 Active Assessment Chronic pain G89.29 Active Medications Medication Code System Code Instructions Start Date End Date Status Dosage Metoprolol Tartrate [facility] 78078162615 100 MG Orally Twice a day Active 1 tablet Levothyroxine Sodium [facility] 91001297020 Orally Once a day Active 1 tablet on an empty stomach in the morning Aspir-81 [facility] 40767055563 81 MG Orally Once a day Active 1 tablet Atorvastatin Calcium [facility] 17649696017 10 MG Orally Once a day Active 1 tablet Amitriptyline HCl [facility] 76771512650 75 MG Orally Once a day Active 1 tablet at bedtime Cyclobenzaprine HCl [facility] 91970427709 10 mg Orally bedtime Active 1 tablet as needed GlipiZIDE [facility] 65153769707 10 MG Orally Once a day Active 1 tablet Nexium [facility] 81548264160 20 MG Orally Once a day Active 1 capsule Omeprazole [facility] 16164232500 40 MG Orally Once a day Active 1 capsule Lyrica [facility] 75757561158 75 MG Orally once daily Active 1 capsule Hydrocodone-Acetaminophen [facility] 71747561780 10-325 MG Orally bid Mar 23, 2018 Active 1 tablet as needed Vital Signs Date/Time: January 22, 2018 Height 62 in Blood Pressure Diastolic 100 mm Hg Blood Pressure Systolic 131 mm Hg Weight 176.6 lbs Results No Known Results Summary Purpose e[employer]Works Submission
--- OUTSIDE RECORDS SUMMARY | 2018-05-29 08:38 | XMS REPORT ---
Author Author Megan Sanchez Organization [employer] Address Unknown Phone Unavailable Care Team Providers Care Hydraulic Engineer Name Role Phone Megan Sanchez CP Unavailable Encounters Encounter Location Date Follow up Routine Rheumatology Clinic Sep 27, 2014 pain contract follow up [facility]ology Clinic November 25, 2014 pain contract follow up [facility] January 27, 2015 Enbrel refill [facility] January 28, 2015 Follow Up MRI Results [facility]ology Clinic Jul 13, 2014 disregard [facility] May 15, 2015 pain contract follow up [facility] Aug 12, 2014 needs f/up OV [facility]ology [facility] Jun 23, 2015 patient credit [facility]ology Clinic Sep 10, 2014 Follow up Routine [facility]ology Clinic May 10, 2015 PA review labs, urine culture [facility] February 01, 2015 sig missing [facility] May 10, 2015 Problems Problem Type Condition ICD-9 Code Onset Dates Condition Status Problem Rheumatoid arthritis 714.0 Active Problem Pain in joint, hand 719.44 Active Problem Rheumatoid arthritis without elevated rheumatoid factor M06.00 Active Social History Social History Element Qualifiers Date Reported IV Drug abuse no. May 10, 2015 Smoking status: . Are you a: Never Smoker May 10, 2015 alcohol no. May 10, 2015 Summary Purpose [employer]ClinicalWorks Submission
--- OUTSIDE RECORDS SUMMARY | 2018-05-29 08:38 | XMS REPORT ---
Author Author Megan Sanchez Organization [employer] Address Unknown Phone Unavailable Care Team Providers Care Manager Transplant Name Role Phone Megan Sanchez CP Unavailable [...] sig missing [facility]umatology Clinic May 10, 2015 Follow up Rheumatology Clinic November 07, 2015 [...] Qualifiers Date Reported IV Drug abuse no. November 07, 2015 Smoking status: . Are you a: Never Smoker November 07, 2015 alcohol no. November 07, 2015 Summary Purpose eClinicalWorks Submission
--- OUTSIDE RECORDS SUMMARY | 2018-05-29 08:38 | XMS REPORT ---
Author Author Megan Sanchez [facility] eClinicalWorks Address Unknown Phone Unavailable Care Team Providers Care Rink Rat Name Role Phone Megan Sanchez CP Unavailable [...] Date End Date Status Dosage Levothyroxine Sodium [facility] 45247642392 Orally Once a day Active 1 tablet on an empty stomach in the morning Metoprolol Tartrate [facility] 49222204045 100 MG Orally Twice a day Active 1 tablet Nexium [facility] 56298894328 20 MG Orally Once a day Active 1 capsule Lyrica [facility] 52331020206 75 MG Orally once daily Active 1 capsule Aspir-81 [facility] 43829021897 81 MG Orally Once a day Active 1 tablet Amitriptyline HCl ND 02068965824 75 MG Orally Once a day Active 1 tablet at bedtime Cyclobenzaprine HCl [facility] 75550437525 10 mg Orally bedtime Active 1 tablet as needed Omeprazole [facility] 03647672642 40 MG Orally Once a day Active 1 capsule GlipiZIDE ND 40819002575 10 MG Orally Once a day Active 1 tablet Hydrocodone-Acetaminophen [facility] 87915532906 10-325 MG Orally bid Active 1 tablet as needed Atorvastatin Calcium ND 21755898996 10 MG Orally Once a day Active 1 tablet Vital Signs Date/Time: Apr 02, 2018 Height 62 in Blood Pressure Diastolic 69 mm Hg Blood Pressure Systolic 123 mm Hg Weight 165.6 lbs Results No Known Results Summary Purpose eClinicalWorks Submission
--- OUTSIDE RECORDS SUMMARY | 2018-05-29 08:38 | XMS REPORT ---
Author Author Megan Sanchez Organization [employer] Address Unknown Phone Unavailable Care Team Providers Care Stripper Latex Name Role Phone Megan Sanchez CP Unavailable [...] on pain Rheumatology Clinic December 19, 2015 Follow up Rheumatology Clinic November 07, [...]
--- OUTSIDE RECORDS SUMMARY | 2018-05-29 08:38 | XMS REPORT ---
Author Author Megan Sanchez Organization [employer] Address Unknown Phone Unavailable Care Team Providers Care Baggagemaster Name Role Phone Megan Sanchez CP Unavailable Allergies No Known Allergies Problems Problem Type Condition Code Onset Dates Condition Status Problem Rheumatoid arthritis of multiple sites without rheumatoid factor M06.09 Active Problem Chronic pain disorder G89.4 Active Problem Rheumatoid arthritis without rheumatoid factor, unspecified ankle and foot M06.079 Active Problem Pain in joint, hand 719.44 Active Assessment Chronic pain G89.29 Active Problem Rheumatoid arthritis without elevated rheumatoid factor M06.00 Active Problem Rheumatoid arthritis 714.0 Active Medications Medication Code System Code Instructions Start Date End Date Status Dosage Lyrica [facility] [address]-50 75 MG Orally Twice a day February 12, 2017 Active 1 capsule Results No Known Results Summary Purpose eClinicalWorks Submission
--- OUTSIDE RECORDS SUMMARY | 2018-05-29 08:38 | XMS REPORT ---
Author Author Megan Sanchez Organization [employer] Address Unknown Phone Unavailable Care Team Providers Care Journeyman Machinist Name Role Phone Megan Sanchez CP Unavailable [...] Pain Contract [facility]umatology Clinic Mar 26, 2016 question on pain [facility]ology [facility] December 19, 2015 pain contract Rhe[facility]ology Clinic January 25, 2016 Follow up Rheumatology Clinic November 07, 2015 No show visit /3 Rheumatology Clinic Aug 15, 2015 disregard Rheumatology Clinic May 15, 2015 needs f/up OV Rheumatology Clinic Jun 23, 2015 Problems Problem Type Condition ICD-9 Code Onset Dates Condition Status Assessment Chronic pain G89.29 Active Problem Rheumatoid arthritis 714.0 Active Problem Pain in joint, hand 719.44 Active Problem Rheumatoid arthritis without elevated rheumatoid factor M06.00 Active Assessment High risk medication use Z79.899 Active Assessment Cervical radicular pain M54.12 Active Assessment Rheumatoid arthritis without rheumatoid factor M06.00 Active Assessment Counseling NOS Z71.9 Active Medications Medication Code System Code Instructions Start Date End Date Status Dosage [facility] [address]-84 75 MG Orally Once a day Active 1 tablet at bedtime Etanercept [facility] [address]-36 50 MG/ML Subcutaneous once a week Active 1 ml Aspir-81 [facility] [address]-54 81 MG Orally Once a day Active 1 tablet Hydrocodone Unknown 0 10.325 Oral BID May 25, 2016 Active 1 tab [facility]othy[facility]ine [facility] [address]-48 Orally Once a day Active 1 tablet on an empty stomach in the morning Atorvastatin Calcium [facility] [address]-31 10 MG Orally Once a day Active 1 tablet Pantoprazole Sodium [facility] [address]-44 20 MG Orally Once a day Active 1 packet Enbrel SureClick [facility] 78468905081 50 MG/ML Active INJECT 50MG SUBCUTANEOUSLY ONCE WEEKLY DIRECTED Metoprolol Tartrate [facility] [address]-91 100 MG Orally Twice a day Active 1 tablet Social History Social History Element Qualifiers Date Reported IV Drug abuse no. Mar 26, 2016 Smoking status: . Are you a: Never Smoker Mar 26, 2016 alcohol no. Mar 26, 2016 Vital Signs Date/Time: Mar 26, 2016 Height 62 in Blood Pressure Diastolic 74 mm Hg Blood Pressure Systolic 127 mm Hg Weight 179.8 lbs Summary Purpose eClinicalWorks Submission
--- OUTSIDE RECORDS SUMMARY | 2018-05-29 08:38 | XMS REPORT ---
Author Author Megan Sanchez Organization [employer] Address Unknown Phone Unavailable Care Team Providers Care Pressure Test Operator Name Role Phone Megan Sanchez CP [...] Clinic November 07, 2015 No show visit 07/07 Rheumatology Clinic Aug 15, 2015 disregard Rheumatology [...] Instructions Start Date End Date Status Dosage Aspir-81 [facility] [address]-17 81 MG Orally Once a day Active 1 tablet Amitriptyline HCl [facility] [address]-14 75 MG Orally Once a day Active 1 tablet at bedtime Pantoprazole Sodium [facility] [address]-23 20 MG Orally Once a day Active 1 packet Hydrocodone Unknown 0 10.325 Oral BID May 25, 2016 Active 1 tab Levothyroxine Sodium [facility] [address]-87 Orally Once a day Active 1 tablet on an empty stomach in the morning Metoprolol Tartrate [facility] [address]-90 100 MG Orally Twice a day Active 1 tablet Atorvastatin Calcium [facility] [address]-31 10 MG Orally Once a day Active 1 tablet Social History Social History Element Qualifiers Date Reported IV Drug abuse no. Jun 13, 2016 Smoking status: . Are you a: Never Smoker Jun 13, 2016 alcohol no. Jun 13, 2016 Vital Signs Date/Time: Jun 13, 2016 Height 62 in Blood Pressure Diastolic 89 mm Hg Blood Pressure Systolic 140 mm Hg Weight 176 lbs Summary Purpose eClinicalWorks Submission
--- OUTSIDE RECORDS SUMMARY | 2018-05-29 08:38 | XMS REPORT ---
Author Author Megan Sanchez [facility] eClinicalWorks Address Unknown Phone Unavailable Care Team Providers Care Precision Agronomist Name Role Phone Megan Sanchez CP Unavailable [...] Start Date End Date Status Dosage Lyrica [facility] 69086473571 75 MG Orally bedtime Active 1 capsule Cyclobenzaprine HCl [facility] 13842056279 10 mg Orally bedtime Sep 17, 2017 Active 1 tablet as needed Amitriptyline HCl ND 45472944552 75 MG Orally Once a day Active 1 tablet at bedtime Pantoprazole Sodium [facility] 53736032456 20 MG Orally Once a day Active 1 packet Hydrocodone-Acetaminophen [facility] 24277857336 10-325 MG Orally every 6 hrs Active 1 tablet as needed Metoprolol Tartrate ND 78277853371 100 MG Orally Twice a day Active 1 tablet Aspir-81 [facility] 49757354829 81 MG Orally Once a day Active 1 tablet GlipiZIDE ND 01831424472 10 MG Orally Once a day Active 1 tablet Atorvastatin Calcium ND 57587221223 10 MG Orally Once a day Active 1 tablet Enbrel SureClick [facility] 18602074620 50 MG/ML Subcutaneous Once a week Inactive 1 ml Levothyroxine Sodium [facility] 92696162746 Orally Once a day Active 1 tablet on an empty stomach in the morning Vital Signs Date/Time: Sep 17, 2017 Height 62 in Blood Pressure Diastolic 79 mm Hg Blood Pressure Systolic 142 mm Hg Weight 180 lbs Results No Known Results Summary Purpose eClinicalWorks Submission
--- OUTSIDE RECORDS SUMMARY | 2018-05-29 08:38 | XMS REPORT ---
Author Author Megan Sanchez [facility] eClinicalWorks Address Unknown Phone Unavailable Care Team Providers Care Division Director Name Role Phone Megan Sanchez CP Unavailable [...] up Routine Rheumatology Clinic May 10, 2015 enbrel refill request Rheumatology Clinic Oct 01, 2016 HAND PAIN Rheumatology Clinic Sep 25, 2016 PA review labs, urine culture Rheumatology Clinic February 01, 2015 sig missing Rheumatology Clinic May 10, 2015 Pain Contract Rheumatology Clinic Mar 26, 2016 2 month f/u Rheumatology Clinic Jun 13, 2016 question on pain Rheumatology Clinic December 19, 2015 pain contract Rheumatology Clinic January 25, 2016 Follow up Rheumatology Clinic November 07, 2015 No show visit 12/3 Rheumatology Clinic Aug 15, 2015 disregard Rheumatology [...] Instructions Start Date End Date Status Dosage Enbrel SureClick [facility] [address]-78 50 MG/ML Subcutaneous Once a week Sep 25, 2016 January 23, 2017 Active 1 ml Social History Social History Element Qualifiers Date Reported IV Drug abuse no. Sep 25, 2016 Smoking status: . Are you a: Never Smoker Sep 25, 2016 alcohol no. Sep 25, 2016 Summary Purpose eClinicalWorks Submission
--- OUTSIDE RECORDS SUMMARY | 2018-05-29 08:38 | XMS REPORT ---
Author Megan Park Organization eClinicalWorks Address Unknown Phone Unavailable Care Team Providers Care Angle Dozer Operator Name Role Phone Megan Sanchez CP Unavailable Allergies, Adverse Reactions, Alerts Substance Reaction Event Type codiene itching Non Drug Allergy Encounters Encounter Location Date Follow Up MRI Results Rheumatology Clinic Jul 13, 2014 pain contract follow up Rheumatology Clinic Aug 12, 2014 Problems Problem Type Condition ICD-9 Code Onset Dates Condition Status Assessment Pain in joint, hand 719.44 Active Assessment Counseling NOS V65.40 Active Assessment Rheumatoid arthritis 714.0 Active Assessment monitorring of NJOY V58.69 Active Social History Social History Element Qualifiers Date Reported IV Drug abuse no. Aug 12, 2014 Smoking status: . Are you a: Never Smoker Aug 12, 2014 alcohol no. Aug 12, 2014 Vital Signs Date/Time: Aug 12, 2014 Height 62 in Blood Pressure Diastolic 70 mm Hg Blood Pressure Systolic 125 mm Hg Weight 170 lbs Summary Purpose eClinicalWorks Submission
--- OUTSIDE RECORDS SUMMARY | 2018-05-29 08:38 | XMS REPORT ---
Author Author Megan Sanchez Organization [employer] Address Unknown Phone Unavailable Care Team Providers Care Narrow Fabric Calenderer Name Role Phone Megan Sanchez CP Unavailable Allergies No Known Allergies Problems Problem Type Condition Code Onset Dates Condition Status Problem Rheumatoid arthritis without rheumatoid factor, unspecified ankle and foot M06.079 Active Problem Rheumatoid arthritis of multiple sites without rheumatoid factor M06.09 Active Problem Primary insomnia F51.01 Active Problem Rheumatoid arthritis 714.0 Active Problem Pain in joint, hand 719.44 Active Problem Chronic pain disorder G89.4 Active Problem Rheumatoid arthritis without elevated rheumatoid factor M06.00 Active Medications No Known Medications Results No Known Results Summary Purpose eClinicalWorks Submission
--- OUTSIDE RECORDS SUMMARY | 2018-05-29 08:38 | XMS REPORT ---
Author Jo-Ann Martinez [facility] eClinicalWorks Address Unknown Phone Unavailable Care Team Providers Care Botany Professor Name Role Phone Jo-Ann Marcos CP Unavailable Allergies, Adverse Reactions, Alerts Substance Reaction Event Type codiene itching Non Drug Allergy Encounters Encounter Location Date Follow up Routine Rheumatology Clinic Sep 27, 2014 pain contract follow up Rheumatology Clinic November 25, 2014 Follow Up MRI Results Rheumatology Clinic Jul 13, 2014 pain contract follow up Rheumatology Clinic Aug 12, 2014 patient credit Rheumatology Clinic Sep 10, 2014 Problems Problem Type Condition ICD-9 Code Onset Dates Condition Status Problem Pain in joint, hand 719.44 Active Assessment Unspecified 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 hepatic coma 070.70 Active Problem Rheumatoid arthritis 714.0 Active Assessment Chronic pain syndrome 338.4 Active Assessment Counseling NOS V65.40 Active Assessment Rheumatoid arthritis 714.0 Active Assessment Pain in joint, hand 719.44 Active Medications Medication Code System Code Instructions Start Date End Date Status Dosage Amitriptyline HCl [facility] [address]-44 75 MG Orally Once a day Active 1 tablet at bedtime Metoprolol Tartrate [facility] [address]-17 100 MG Orally Twice a day Active 1 tablet Levothyroxine Sodium [facility] [address]-12 50 MCG Orally Once a day Active 1 tablet on an empty stomach in the morning Losartan Potassium [facility] [address]-87 50 MG Orally Once a day Active 1 tablet Hydrocodone-Acetaminophen [facility] [address]-55 10-325 MG Orally every 6 hrs Active 1 tablet as needed Enbrel SureClick [facility] [address]-13 50 MG/ML Subcutaneous once weekly Jul 13, 2014 October 11, 2014 Active 1 ml Social History Social History Element Qualifiers Date Reported IV Drug abuse no. November 25, 2014 Smoking status: . Are you a: Never Smoker November 25, 2014 alcohol no. November 25, 2014 Vital Signs Date/Time: November 25, 2014 Height 62 in Blood Pressure Diastolic 82 mm Hg Blood Pressure Systolic 157 mm Hg Weight 182 lbs Summary Purpose eClinicalWorks Submission
--- OUTSIDE RECORDS SUMMARY | 2018-05-29 08:38 | XMS REPORT ---
Author Author Megan Sanchez Organization [employer]Works Address Unknown Phone Unavailable Care Team Providers Care Supervisor Prop Making Name Role Phone Megan Sanchez CP Unavailable [...]
--- OUTSIDE RECORDS SUMMARY | 2018-05-29 08:38 | XMS REPORT ---
Author Author Megan Sanchez [facility] eClinicalWorks Address Unknown Phone Unavailable Care Team Providers Care Vocational Ed Instructor Name Role Phone Megna Sanchez CP Unavailable Allergies, Adverse Reactions, Alerts [...] Date End Date Status Dosage Levothyroxine Sodium [facility] 26896210598 Orally Once a day Active 1 tablet on an empty stomach in the morning Metoprolol Tartrate [facility] 30782318214 100 MG Orally Twice a day Active 1 tablet Atorvastatin Calcium [facility] 72210438897 10 MG Orally Once a day Active 1 tablet GlipiZIDE [facility] 55519588232 10 MG Orally Once a day Active 1 tablet Hydrocodone-Acetaminophen [facility] 00218161746 10-325 MG Orally every 6 hrs Active 1 tablet as needed Lyrica [facility] 89882959385 75 MG Orally bid Active 1 capsule Pantoprazole Sodium [facility] 46751439526 20 MG Orally Once a day Active 1 packet Amitriptyline HCl [facility] 57340142192 75 MG Orally Once a day Active 1 tablet at bedtime Aspir-81 [facility] 03059525653 81 MG Orally Once a day Active 1 tablet Omeprazole [facility] 63676629172 40 MG Orally Once a day Active 1 capsule Cyclobenzaprine HCl [facility] 51652692618 10 mg Orally bedtime Active 1 tablet as needed Vital Signs Date/Time: November 20, 2017 Height 62 in Blood Pressure Diastolic 85 mm Hg Blood Pressure Systolic 172 mm Hg Weight 179.8 lbs Results No Known Results Summary Purpose eClinicalWorks Submission
--- OUTSIDE RECORDS SUMMARY | 2018-05-29 08:38 | XMS REPORT ---
Author Author Megan Sanchez [facility] eClinicalWorks Address Unknown Phone Unavailable Care Team Providers Care Engineer Steam Name Role Phone Megan Sanchez CP Unavailable [...] Date End Date Status Dosage Levothyroxine Sodium [facility] [address]-29 Orally Once a day Active 1 tablet on an empty stomach in the morning Lyrica [facility] [address]-10 75 MG Orally Twice a day Active 1 capsule Aspir-81 [facility] [address]-31 81 MG Orally Once a day Active 1 tablet Pantoprazole Sodium [facility] [address]-91 20 MG Orally Once a day Active 1 packet Amitriptyline HCl [facility] [address]-25 75 MG Orally Once a day Active 1 tablet at bedtime Metoprolol Tartrate [facility] [address]-85 100 MG Orally Twice a day Active 1 tablet Enbrel SureClick [facility] [address]-30 50 MG/ML Subcutaneous Once a week Inactive 1 ml Atorvastatin Calcium [facility] [address]-38 10 MG Orally Once a day Active 1 tablet Vital Signs Date/Time: Mar 12, 2017 Height 62 in Blood Pressure Diastolic 82 mm Hg Blood Pressure Systolic 138 mm Hg Weight 178 lbs Results No Known Results Summary Purpose eClinicalWorks Submission
--- OUTSIDE RECORDS SUMMARY | 2018-05-29 08:38 | XMS REPORT ---
Author Author Megan Sanchez [facility] eClinicalWorks Address Unknown Phone Unavailable Care Team Providers Care Disability Attorney Name Role Phone Daniel Megan CP Unavailable Allergies, Adverse Reactions, Alerts Substance [...] Date End Date Status Dosage Atorvastatin Calcium ND 35008370773 10 MG Orally Once a day Active 1 tablet Enbrel SureClick ND 98202782550 50 MG/ML Subcutaneous Once a week Inactive 1 ml Metoprolol Tartrate ND 84744563469 100 MG Orally Twice a day Active 1 tablet Amitriptyline HCl ND 18780495830 75 MG Orally Once a day Active 1 tablet at bedtime Aspir-81 ND 02984538767 81 MG Orally Once a day Active 1 tablet Lyrica ND 61904273508 75 MG Orally bedtime Active 1 capsule GlipiZIDE ND 38514533841 10 MG Orally Once a day Active 1 tablet Levothyroxine Sodium ND 01063625334 Orally Once a day Active 1 tablet on an empty stomach in the morning Pantoprazole Sodium ND 36688310123 20 MG Orally Once a day Active 1 packet Vital Signs Date/Time: Jul 16, 2017 Height 62 in Blood Pressure Diastolic 86 mm Hg Blood Pressure Systolic 146 mm Hg Weight 180.6 lbs Results Name Result Date Reference Range Unit Abnormality Flag CRP (C-REACTIVE PROTEIN), SERUM ----CRP <0.1 [id number] <0.5 mg/dL N ESR (SED-RATE) ----ESR (SED-RATE) 7 [id number] <26 mm/hr CBC w/DIFF, PLATELET CT. ----PLATELET COUNT 174 [id number] 144-400 x10(3)/uL ----IMMATURE GRANULOCYTES 0.4 [id number] 0.0-1.6 % ----MPV 11.3 [id number] 8.2-11.9 fL ----POLYS 37.1 05173750 36.0-78.0 % ----RDW 14.6 [id number] 10.9-16.9 % ----MCHC 32.6 [id number] 29.0-35.0 gm/dL ----MCH 27.8 [id number] 25.0-34.1 pg ----MCV 85.3 [id number] 80.0-100.0 fL ----MONOS 9.8 38406869 0.0-13.0 % ----LYMPHS 49.0 [id number] 12.0-48.0 % H ----BASOS 0.4 [id number] 0.0-2.0 % ----EOS 3.3 42494415 0.0-8.0 % ----WBC 5.12 [id number] 3.66-11.99 x10(3)/uL ----RBC 4.28 [id number] 3.60-5.50 x10(6)/uL ----HGB 11.9 13398542 11.5-15.6 gm/dL ----HCT 36.5 [id number] 34.5-46.5 % COMPREHENSIVE METABOLIC ----Chloride 101 48825471 96-108 mmol/L ----Potassium 4.8 [id number] 3.5-5.5 mmol/L ----BUN 14 20170716 8-23 mg/dL ----CO2 29 20170716 22-29 mmol/L ----e-GFR 80 [id number] >or=60 mL/min ----e-GFR, 93 [id number] >or=60 mL/min ----Creatinine 0.79 20170716 0.49-1.02 mg/dL ----Alk Phos 91 [id number] 40-156 U/L ----A/G Ratio 1.7 [id number] 1.1-2.9 ----AST 19 [id number] <32 U/L ----Sodium 141 20170716 135-147 mmol/L ----Albumin 4.1 59845183 3.5-5.2 g/dL ----Calcium 9.1 20170716 8.6-10.4 mg/dL ----Bilirubin, Total 0.4 20170716 <1.2 mg/dL ----Globulin 2.4 [id number] 1.7-3.7 g/dL ----Total Protein 6.5 20170716 5.9-8.4 g/dL ----ALT 14 [id number] <33 U/L ----Glucose 85 16404405 70-99 mg/dL Summary Purpose eClinicalWorks Submission
--- OUTSIDE RECORDS SUMMARY | 2018-05-29 08:38 | XMS REPORT ---
Author Author Megan Sanchez Organization eClinicalWorks Address Unknown Phone Unavailable Care Team Providers Care Administrative Assistant Receptionist Name Role Phone Megan Sanchez CP Unavailable [...] Follow up Rheumatology Clinic November 07, 2015 disregard Rheumatology Clinic May 15, 2015 [...] Date End Date Status Dosage Atorvastatin [facility] [address]-92 10 MG Orally Once a day Active 1 tablet Levothyroxine Sodium [facility] [address]-47 Orally Once a day Active 1 tablet on an empty stomach in the morning Etanercept [facility] [address]-53 50 MG/ML Subcutaneous once a week Active 1 ml Hydrocodone-Acetaminophen [facility] [address]-80 10-325 MG Orally every 6 hrs Jun 09, 2015 Active 1 tablet as needed Enbrel SureClick [facility] 34062759910 50 MG/ML Active INJECT 50MG SUBCUTANEOUSLY ONCE WEEKLY DIRECTED Amitriptyline HCl [facility] [address]-18 75 MG Orally Once a day Active 1 tablet at bedtime Aspir-81 [facility] [address]-48 81 MG Orally Once a day Active 1 tablet Pantoprazole Sodium [facility] [address]-65 20 MG Orally Once a day Active 1 packet Hydrocodone Unknown 0 Oral BID Active 1 tab Metoprolol Tartrate [facility] [address]-25 100 MG Orally Twice a day Active 1 tablet Social History Social History Element Qualifiers Date Reported IV Drug abuse no. November 07, 2015 Smoking status: . Are you a: Never Smoker November 07, 2015 alcohol no. November 07, 2015 Vital Signs Date/Time: November 07, 2015 Height 62 in Blood Pressure Diastolic 80 mm Hg Blood Pressure Systolic 174 mm Hg Weight 171 lbs Summary Purpose eClinicalWorks Submission
--- OUTSIDE RECORDS SUMMARY | 2018-05-29 08:38 | XMS REPORT ---
Author Author Megan Sanchez [facility] eClinicalWorks Address Unknown Phone Unavailable Care Team Providers Care Template Layout Worker Name Role Phone Megan Sanchez CP Unavailable [...] up Routine Rheumatology Clinic May 10, 2015 HAND PAIN Rheumatology Clinic Sep 25, 2016 [...] Pain in right hand M79.641 Active Assessment Pain of left hand M79.642 Active Medications Medication Code System Code Instructions Start Date End Date Status Dosage Metoprolol Tartrate [facility] [address]-14 100 MG Orally Twice a day Active 1 tablet Atorvastatin Calcium [facility] [address]-96 10 MG Orally Once a day Active 1 tablet Enbrel SureClick [facility] [address]-38 50 MG/ML Subcutaneous Once a week Sep 25, 2016 January 23, 2017 Active 1 ml Pantoprazole Sodium [facility] [address]-54 20 MG Orally Once a day Active 1 packet Aspir-81 [facility] [address]-59 81 MG Orally Once a day Active 1 tablet Amitriptyline HCl [facility] [address]-50 75 MG Orally Once a day Active 1 tablet at bedtime Levothyroxine Sodium [facility] [address]-63 Orally Once a day Active 1 tablet on an empty stomach in the morning Social History Social History Element Qualifiers Date Reported IV Drug abuse no. Sep 25, 2016 Smoking status: . Are you a: Never Smoker Sep 25, 2016 alcohol no. Sep 25, 2016 Vital Signs Date/Time: Sep 25, 2016 Height 62 in Blood Pressure Diastolic 79 mm Hg Blood Pressure Systolic 133 mm Hg Weight 177.8 lbs Summary Purpose eClinicalWorks Submission
--- OUTSIDE RECORDS SUMMARY | 2018-05-29 08:39 | XMS REPORT ---
Author Author [facility] Address Unknown Phone Unavailable Care Team Providers Care Supervisor Asphalt Paving Name Role Phone Unavailable Unavailable Payers Payer Name Policy Type Policy Number Effective Date Expiration Date Problems This patient has no known problems. Allergies, Adverse Reactions, Alerts Allergy Name Allergy Type Status Severity Reaction(s) Onset Date Inactive Date Treating Clinician Comments No Known Allergies DA Active U 2017-10-10 00:00:00 Medications This patient has no known medications.
--- OUTSIDE RECORDS SUMMARY | 2018-05-29 08:39 | XMS REPORT ---
Author Author Megan Sanchez [facility] eClinicalWorks Address Unknown Phone Unavailable Care Team Providers Care Pals Specialist Name Role Phone Megan Sanchez CP Unavailable [...] pain contract [facility] January 25, 2016 Pain Contract Follow Up Rheumatology Clinic October 04, 2016 Follow up Rheumatology Clinic November 07, [...] Instructions Start Date End Date Status Dosage Enyonl Yogesh [facility] [address]-48 50 MG/ML Subcutaneous Once a week Active 1 ml Aspir-81 [facility] [address]-85 81 MG Orally Once a day Active 1 tablet Levothyroxine Sodium [facility] [address]-08 Orally Once a day Active 1 tablet on an empty stomach in the morning Metoprolol Tartrate [facility] [address]-73 100 MG Orally Twice a day Active 1 tablet Pantoprazole Sodium [facility] [address]-12 20 MG Orally Once a day Active 1 packet Atorvastatin Calcium [facility] [address]-12 10 MG Orally Once a day Active 1 tablet Hydrocodone Unknown 0 10.325 Oral BID 2016 Active 1 tab Amitriptyline HCl [facility] [address]-84 75 MG Orally Once a day Active 1 tablet at bedtime Social History Social History Element Qualifiers Date Reported IV Drug abuse no. October 04, 2016 Smoking status: . Are you a: Never Smoker October 04, 2016 alcohol no. October 04, 2016 Vital Signs Date/Time: October 04, 2016 Height 62 in Blood Pressure Diastolic 79 mm Hg Blood Pressure Systolic 158 mm Hg Weight 178.2 lbs Summary Purpose eClinicalWorks Submission
--- OUTSIDE RECORDS SUMMARY | 2018-05-29 08:39 | XMS REPORT | Summary of Care ---
Author Author [facility] Organization Unknown Address Unknown Phone Unavailable Care Team Providers Care Compliance Review Officer Name Role Phone KAYE Rooney, [facility]RA Unavailable Unavailable LORENA ACOSTA [place], YADIRA Bello Unavailable Unavailable LORENA Breaux, YADIRA Unavailable Unavailable Unavailable Unavailable Functional Status Name Dates Details Functional status health issues are not documented Status: Name Dates Details Cognitive status health issues are not documented Status: Problems Name Dates Details Coronary artery disease (414.00, I25.10) Status: Active Rheumatoid arthritis (714.0, M06.9) Status: Active Essential (primary) hypertension (401.9, I10) Status: Active Hyperlipidemia (272.4, E78.5) Status: Active Hypertriglyceridemia (272.1, E78.1) Status: Active Depression with anxiety (300.4, F41.8) Status: Active Hypothyroidism (244.9, E03.9) Status: Active Type 2 diabetes mellitus (250.00, E11.9) Status: Active Fatigue (780.79, R53.83) Status: Active Insomnia (780.52, G47.00) Status: Active Vitamin D insufficiency (268.9, E55.9) Status: Active Abdominal pain (789.00, R10.9) Status: Active GERD (gastroesophageal reflux disease) (530.81, K21.9) Status: Active Nausea (787.02, R11.0) Status: Active Vitamin B 12 deficiency (266.2, E53.8) Status: Active Headache (784.0, R51) Status: Active Medications Name Dates Details Metoprolol Tartrate 50 MG Oral Tablet TAKE 1 TABLET TWICE DAILY. Quantity: 180 [facility] Active Atorvastatin Calcium 40 MG Oral Tablet TAKE 1 TABLET DAILY. * Refills: 0 Active Aspir-81 TBEC TAKE 1 TABLET DAILY. * Refills: 0 Active Levothyroxine Sodium 100 MCG Oral Tablet TAKE 1 TABLET Daily NEEDS REPEAT LABS * Quantity: 30 Refills: 0 [facility] * Start : 23-May-2018 Active Ondansetron HCl - 4 MG Oral Tablet TAKE 1 TABLET EVERY 8 HOURS * Quantity: 15 Refills: 0 [facility] * Start : 20-Nov-2017 Active Hydrocodone-Acetaminophen 10-325 MG Oral Tablet TAKE 1 TABLET Every twelve hours PRN * Refills: 0 Active GlipiZIDE ER 5 MG Oral Tablet Extended Release 24 Hour TAKE 1 TABLET DAILY. * Quantity: 90 Refills: 1 [facility] Active MetFORMIN HCl ER 500 MG Oral Tablet Extended Release 24 Hour TAKE 2 TABLETS ONCE DAILY WITH THE EVENING MEAL. * Quantity: 180 Refills: 1 [facility] Active DULoxetine HCl - 30 MG Oral Capsule Delayed Release Particles TAKE 1 CAPSULE DAILY * Quantity: 30 Refills: 1 [facility] * Start : 21-Mar-2018 Active RaNITidine HCl - 150 MG Oral Tablet TAKE ONE (1) TABLET(S) BY MOUTH TWICE A DAY. * Quantity: 60 Refills: 2 [facility] * Start : 26-May-2018 Active Zolpidem Tartrate 10 MG Oral Tablet TAKE 1 TABLET BY MOUTH EVERY DAY NEEDED FOR INSOMNIA. * Quantity: 30 Refills: 2 [facility] * Start : 21-Mar-2018 Active Vitamin D (Ergocalciferol) 09911 UNIT Oral Capsule TAKE 1 CAPSULE WEEKLY * Quantity: 12 Refills: 0 [facility] * Start : 23-Mar-2018 Active Wdwmnrtzjq-FMCL-Vgsxjujz 50-300-40 MG Oral Capsule TAKE 1 CAPSULE Daily PRN ANTHONY * Quantity: 30 Refills: 0 [facility] * Start : 02-Apr-2018 Active Allergies and Adverse Reactions Name Dates Details No Known Allergies (Allergy) Status: Active Past Medical History Name Dates Details History of hepatitis C virus infection (V12.09, Z86.19) Status: Resolved History of myocardial infarction (412, I25.2) Status: Resolved Procedures Procedure Dates Details US Abdomen complete with Pelvis 03319 Date: 02-Apr-2018 History of Hysterectomy Completed History of Coronary artery bypass graft Completed Immunization Name Dates Details Influenza, seasonal, injectable on: 05-Jul-2017 Engerix-B 20 MCG/ML Intramuscular Injectable on: 30-Nov-2017 Havrix 1440 EL U/ML Intramuscular Suspension on: 30-Nov-2017 Pneumovax 23 25 MCG/0.5ML Injection Injectable on: 30-Nov-2017 Engerix-B 20 MCG/ML Injection Suspension on: 25-Dec-2017 Family History Name Dates Details Family history of chronic obstructive pulmonary disease (V17.6, Z82.5) Status: Active Name Dates Details Family history of cerebrovascular accident (CVA) (V17.1, Z82.3) Status: Active Family history of chronic kidney disease (V18.69, Z84.1) Status: Active Social History Name Dates Details - Status: Name Dates Details Former smoker Vital Signs Date Test Result Details No Known Vitals to report Results Date Description Value Details Results not documented Plan of Care Name Dates Details Planned Observations Planned Goals not documented Planned Encounters Appointment; [facility] NP On: 28-May-2018 17:30 Appointment; [facility] NP On: 28-May-2018 17:30 Appointment; [facility] NP On: 23-Jul-2018 17:30 Appointment; [facility] NP On: 27-Aug-2018 17:30 Interventions Provided Medication Changes* RaNITidine HCl - 150 MG Oral Tablet - Renew Instructions Name Dates Details Instructions not documented Encounters Appointment; [facility] NP Encounter Diagnosis: Problem not documented On: 20-Nov-2017 16:00 Appointment; [facility] NP Encounter Diagnosis: Problem not documented On: 27-Nov-2017 11:45 Appointment; [facility] NP Encounter Diagnosis: Problem not documented On: 21-Mar-2018 14:30 Appointment; [facility] NP Encounter Diagnosis: Problem not documented On: 02-Apr-2018 18:00 Appointment; YADIRA CARRILLO M.D. Encounter Diagnosis: Problem not documented On: 11-Apr-2018 16:15 Appointment; [facility] NP Encounter Diagnosis: Problem not documented On: 16-Apr-2018 19:00 Appointment; [facility] NP Encounter Diagnosis: Problem not documented On: 22-Apr-2018 17:30 Appointment; [facility] NP Encounter Diagnosis: Problem not documented On: 23-Apr-2018 16:15 Appointment; [facility] NP Encounter Diagnosis: Problem not documented On: 30-Apr-2018 19:00
[2018-05-29 13:10] VITALS: BP 150/70
--- NOTE | 2018-06-22 15:29 | Operative Report ---
DATE OF PROCEDURE: May 29, 2018 PREOPERATIVE DIAGNOSIS: Left proximal ureteral stone. POSTOPERATIVE DIAGNOSIS: Left proximal ureteral stone. PROCEDURES PERFORMED 1. Cystoscopy. 2. Left retrograde pyelogram. 3. Left ureteroscopy with laser lithotripsy. 4. Placement of left ureteral stents. ANESTHESIA: General anesthesia. ESTIMATED BLOOD LOSS: Minimal. INDICATIONS: Ms. Zofia Murray is a 62-year-old woman with a prior history of nephrolithiasis, who presented with left flank pain. A stent was placed at another institution. She now presents for definitive surgical management of the stone. PROCEDURE IN DETAIL: The patient brought into the operating room and placed in supine position after administration of general anesthesia, was prepped and draped in usual sterile fashion. Cystourethroscopy was performed using 22-Lao cystoscope. Anterior and posterior urethra were noted to be normal. The bladder was entered without difficulty. Upon entrance into the bladder, a stent was seen exiting to the ureteral orifice. There was mild edema noted around the seminal orifice. The stent was then grasped with the alligator forceps and removed in its entirety. Left retrograde pyelogram was then performed. This revealed a stone approximately 9 mm, which appeared to have been pushed into the lower portion of the left kidney by the previous stent. Under fluoroscopic guidance, an Amplatz wire was placed up into the left renal pelvis and an 11, 13, 36 cm ureteral access sheath was then placed. Flexible ureteroscopy was performed. The visualized portion of the proximal ureter was noted to be normal. The renal pelvis was entered without difficulty. In the lower pole was a stone obviously described as about 9 mm in diameter. The Holmium laser was used to break this up into smaller pieces and the large fragments were removed and portions of these were sent to pathology for microscopic analysis. Much of the smaller fragments were irrigated free. Once no large fragments were seen remaining, the ureteroscope and laser were removed as was the ureteral access sheath. The wire was left in situ. A 6-Lao stent for her height was then placed such that 1 coil was in the renal pelvis and subsequent coil was in the bladder. The string was allowed to exit the urethral meatus. The cystoscope and sheath removed and the patient returned to supine position. Anesthesia was reversed and she was transferred to a bed and taken to postanesthesia care unit in good condition. Of note, the needle and instrument count were correct at the conclusion of the case. Job#: [id number] EDUARDO
== END | disposition home or self-care (01) ==
LOC: OR 08:35
PROVIDERS: ATTEND Urology
DX: N20.1 Calculus of ureter (principal); Z46.6 Encounter for fitting and adjustment of urinary device; D64.9 Anemia, unspecified; I25.810 Atherosclerosis of coronary artery bypass graft(s) without angina pectoris; I25.2 Old myocardial infarction; I10 Essential (primary) hypertension; E11.9 Type 2 diabetes mellitus without complications; K21.9 Gastro-esophageal reflux disease without esophagitis; F41.9 Anxiety disorder, unspecified; F32.9 Major depressive disorder, single episode, unspecified; Z79.84 Long term (current) use of oral hypoglycemic drugs; Z86.73 Personal history of transient ischemic attack (TIA), and cerebral infarction without residual deficits; Z95.0 Presence of cardiac pacemaker; Z95.1 Presence of aortocoronary bypass graft; Z86.19 Personal history of other infectious and parasitic diseases; Z84.1 Family history of disorders of kidney and ureter
CPT/HCPCS: 36415; 52356; 74420; 82948; 88300; C1766; J0696; J1100; J2001; J2250; J2405; Q9967

== ENCOUNTER 2018-09-14 17:50 | Emergency (ER) | payer OTHER ==
[~2018-09-14] VITALS: Ht 157.5 cm; Wt 63.5 kg
[~2018-09-14 17:50] MED LIST changes: -CEFTRIAXONE SOD 1 GM VIAL ONE; -DEXAMETHASONE SOD PHOS INJ 4 MG/ML VIAL ONE; -FENTANYL CITRATE/PF 100MCG/2 ML INJ ONE; -IOPAMIDOL 610MG/1ML 300 MG/ML VIAL IV ONE; -LIDOCAINE HCL 2% LOCAL INJ 5 ML SDV VIAL INJ ONE; -MIDAZOLAM HCL 2 MG/2 ML VIAL ONE; -ONDANSETRON HCL INJ 2 MG/ML VIAL ONE; -PROPOFOL IV EMULSION 10 MG/ML 20 ML VIAL ONE; -SEVOFLURANE INHAL SOLN 250 ML PEN BTL ONE
--- OUTSIDE RECORDS SUMMARY | 2018-09-14 17:52 | XMS REPORT | Clinical Summary ---
Author Author [facility] Address Unknown Phone Unavailable Care Team Providers Care Fur Drummer Name Role Phone Gin Sumner MD PCP Allergies No Known Allergies Medications End Date Status Medication Sig Dispensed Refills Start Date Active metoprolol tartrate Take 50 mg by 0 (LOPRESSOR) 50 mg tablet mouth 2 (two) times a day. Active atorvastatin (LIPITOR) 40 Take 40 mg by 0 05/24/201 MG tablet mouth daily. 7 Active pantoprazole (PROTONIX) Take 20 mg by 0 24/201 20 MG EC tablet mouth daily. 7 Active metFORMIN (GLUCOPHAGE) Take 500 mg 0 12/26/201 500 mg tablet by mouth 2 7 (two) times a day with meals. Active HYDROcodone-acetaminophen Take 1 tablet 0 12/26/201 (NORCO) 10-325 mg per by mouth 2 7 tablet (two) times a day. Active aspirin (ECOTRIN) 81 MG Take 81 mg by 0 /24/201 enteric coated tablet mouth daily. 7 Active amitriptyline (ELAVIL) 75 Take 37.5 mg 0 /24/201 MG tablet by mouth 7 nightly. Active Problems Problem Noted Date Chest pain 12/26/2016 Family History Medical History Relation Name Comments Cancer Father Kidney disease Father Miscarriages / Father Stillbirths COPD Mother Relation Name Status Comments Father Mother Social History Date Tobacco Use Types Packs/Day Years Used Quit: 12/26/1981 Former Smoker Cigarettes Alcohol Use Drinks/Week oz/Week Comments Yes 1 Glasses of 0.6 veryb seldom wine Sex Assigned at Date Recorded Not on file Industry Job Start Date Occupation Not on file Not on file Not on file Travel End Travel History Travel Start No recent travel history available. Last Filed Vital Signs Not on file Plan of Treatment Health Maintenance Due Date Last Done Comments CERVICAL CANCER SCREENING 12/04/1975 BREAST CANCER SCREENING 2004 COLON CANCER SCREENING 2004 SHINGLES VACCINES (1 of 2004 2) INFLUENZA VACCINE 03/05/2018 Results Not on fileafter 09/13/2017 Insurance Payer Benefit Subscriber ID Type Phone Address Plan / Group [employer] [facility] xxxxxxxxxxxx Exchange [employer] [place] [address] [place] [address] Advance Directives Patient has advance care planning documents on file. For more information, glne tomlinson contact: Yao Ruiz [address] [place] [address]
--- OUTSIDE RECORDS SUMMARY | 2018-09-14 17:53 | XMS REPORT | Continuity of Care Document ---
Author Author [facility] Interface Address Unknown Phone Unavailable Problems Problem Status Onset Date Classification Date Reported Comments Source Rheumatoid arthritis of multiple sites without rheumatoid factor Active Problem 09/04/2018 Megan Naconradm Chronic pain disorder Active Problem 09/04/2018 Megan Naconradm Rheumatoid arthritis without rheumatoid factor, unspecified ankle and foot Active Diagnosis 09/04/2018 Megan Naconradm Pain in joint, hand Active Problem 09/04/2018 Megan Najam Rheumatoid arthritis without elevated rheumatoid factor Active Problem 09/04/2018 Megan Najam Rheumatoid arthritis Active Problem 09/04/2018 Megan Naconradm Chronic pain Active Diagnosis 09/04/2018 Megankelvin Sanchez Counseling NOS Active Diagnosis 09/04/2018 Megan Sanchez High risk medication use Active Diagnosis 09/04/2018 Megan Naconradm Pain in right hand Active Diagnosis 09/04/2018 Megan Daniel Screening for breast cancer Active Diagnosis 03/14/2017 Megan Nabel Pain of left hand Active Diagnosis 03/14/2017 Megan Sanchez Primary insomnia Active Problem 09/04/2018 Megan Daniel Counseling NOS Active Diagnosis 11/28/2014 Megan Sanchez monitorring of highrisk meds Active Diagnosis 08/13/2014 Megan Nabel Right hand pain Active Diagnosis 01/26/2016 Megan Daniel Rheumatoid arthritis without rheumatoid factor Active Diagnosis 03/27/2016 Megan Sancehz Unspecified 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 hepatic coma Active Diagnosis 11/28/2014 Megan Sanchez Chronic pain syndrome Active Diagnosis 11/28/2014 Megan Sanchez Cervical radicular pain Active Diagnosis 08/08/2016 Megan Sanchez Medications Medication Details Route Status Patient Instructions Ordering Provider Order Date Source Hydrocodone-Acetaminophen 1 tablet as needed Orally Active 10- 325 MG Orally bid Najam 03/23/2018 Megan Daniel Cyclobenzaprine HCl 1 tablet as needed Orally Active 10 mg Orally bedtime Najam 09/17/2017 Megankelvin Sanchez Hydrocodone 1 tab Oral Active 10.325 Oral BID Najam 07/13/2017 Megan Daniel Lyrica 1 capsule Orally Active 75 MG Orally Twice a day [facility] 02/12/2017 Megankelvin Sanchez Orencia ClickJect 1 ml Subcutaneous Active 125 MG/ML Subcutaneous [facility] 12/11/2016 Megan Daniel Hydrocodone 1 tab Oral Active 10.325 Oral BID [facility] 2016 Megan Daniel Enbrel SureClick 1 ml Subcutaneous Active 50 MG/ML Subcutaneous Once a week [facility] 09/25/2016 Megan Nabel Hydrocodone 1 tab Oral Active 10.325 Oral BID [facility] 05/25/2016 Megan Nabel Hydrocodone 1 tab Oral Active 10.325 Oral BID [facility] 03/25/2016 Megan Daniel Hydrocodone-Acetaminophen 1 tablet as needed Orally Active 10- 325 MG Orally every 6 hrs [facility] 06/09/2015 Megan Daniel Enbrel SureClick 1 ml Subcutaneous Active 50 MG/ML Subcutaneous once weekly [facility] 07/13/2014 Megankelvin Sanchez Humira Pen 0.8 Subcutaneous No Longer Active 40 MG/0.8ML Subcutaneous every 2 weeks [facility] 10/27/2012 Megan Nabel Atorvastatin Calcium 1 tablet Orally Active 10 MG Orally [facility] Aspir-81 1 tablet Orally Active 81 MG Orally [facility] Metoprolol Tartrate 1 tablet Orally Active 100 MG Orally Twice a day [place] Megan Naja Levothyroxine Sodium 1 tablet on an empty stomach in the morning Orally Active Orally Once a day [place] Megan Naconrad Enbrel SureClick 1 ml Subcutaneous Active 50 MG/ML Subcutaneous [facility] Amitriptyline HCl 1 tablet at bedtime Orally Active 75 MG Orally Once a day [place] Megan Najam Pantoprazole Sodium 1 packet Orally Active 20 MG Orally Once a day [place] Megan Naja Levothyroxine Sodium 1 tablet on an empty stomach in the morning Orally Active Orally Once a day [place] Megan Najam Metoprolol Tartrate 1 tablet Orally Active 100 MG Orally Twice a day [place] Megan Najam Nexium 1 capsule Orally Active 20 MG Orally Once a day Najam Megan Nabel Lyrica 1 capsule Orally Active 75 MG Orally once daily Naconradm Megan Nabel Aspir-81 1 tablet Orally Active 81 MG Orally Once a day Najavanita Guzman Nabel Amitriptyline HCl 1 tablet at bedtime Orally Active 75 MG Orally Once a day Najam Megan Nabel Cyclobenzaprine HCl 1 tablet as needed Orally Active 10 mg Orally bedtime Nabel Guzman Nabel Omeprazole 1 capsule Orally Active 40 MG Orally Once a day Naconradm Megan Nabel GlipiZIDE 1 tablet Orally Active 10 MG Orally Once a day Najam Megan Nabel Hydrocodone-Acetaminophen 1 tablet as needed Orally Active 10- 325 MG Orally bid Nabel Guzman Nabel Atorvastatin Calcium 1 tablet Orally Active 10 MG Orally Once a day Nabel Guzman Nabel Pantoprazole Sodium 1 packet Orally Active 20 MG Orally Once a day Nabel Guzman Nabel Enbrel SureClick 1 ml Subcutaneous Active 50 MG/ML Subcutaneous Once a week Nabel Guzman Nabel Lyrica 1 capsule Orally Active 75 MG Orally Twice a day Nabel Guzman Nabel Ranitidine 75 not defined NA Active Naconrad Megan Najam Etanercept 1 ml Subcutaneous Active 50 MG/ML Subcutaneous once a week [facility] Megan Nabel Enbrel SureClick INJECT 50MG SUBCUTANEOUSLY ONCE WEEKLY DIRECTED NA Active 50 MG/ML Nabel Guzman Nabel Hydrocodone 1 tab Oral Active Oral BID Nabel Guzman Nabel Losartan Potassium 1 tablet Orally Active 50 MG Orally Once a day Woodlilian Guzman Naconrad Levothyroxine Sodium 1 tablet on an empty stomach in the morning Orally Active 50 MCG Orally Once a day [place] Megan Nabel Hydrocodone-Acetaminophen 1 tablet as needed Orally Active 10- 325 MG Orally every 6 hrs Medwaylilian Guzmán Allergies, Adverse Reactions, Alerts Substance Category Reaction Severity Reaction type Status Date Reported Comments Source codiene Adverse Reaction itching Adverse Reaction Active 11/25/2014 Megan Daniel Hartmann Adverse Reaction Info Not Available Adverse Reaction Active 09/03/2018 Megan Sanchez Immunizations Immunization Date Given Site Status Last Updated Comments Source Results Order Name Results Value Reference Range Date Interpretation Comments Source Vital Signs Vital Sign Value Date Comments Source Height 62 09/03/2018 Megan Najam Diastolic (mm Hg) 62 09/03/2018 Megan Najam Systolic (mm Hg) 132 09/03/2018 Megan Najam Weight 142.8 09/03/2018 Megan Najam Height 62 07/02/2018 Megan Najam Diastolic (mm Hg) 53 07/02/2018 Megan Najam Systolic (mm Hg) 101 07/02/2018 Megan Najam Weight 152.2 07/02/2018 Megan Najam Height 62 04/02/2018 Megan Najam Diastolic (mm Hg) 69 04/02/2018 Megan Najam [...] Najam Systolic (mm Hg) 174 11/07/2015 Megan Naconradm Weight 171 11/07/2015 Megan Najam Height 62 11/25/2014 Megan Najam Diastolic (mm Hg) 82 11/25/2014 Megan Najam Systolic (mm Hg) 157 11/25/2014 Megan Najam Weight 182 11/25/2014 Megan Najam Height 62 08/12/2014 Megan Najam Diastolic (mm Hg) 70 08/12/2014 Megan Najam Systolic (mm Hg) 125 08/12/2014 Megan Najam Weight 170 08/12/2014 Megan Najam Height 62 07/13/2014 Megan Najam Diastolic (mm Hg) 80 07/13/2014 Megan Najam Systolic (mm Hg) 162 07/13/2014 Megankelvin Sanchez Weight 170 07/13/2014 Megan Sanchez Encounters Location Location Details Encounter Type Encounter Number Reason For Visit Attending Provider ADM Date DC Date Status Source Rheumatology Clinic Follow Up MRI Results [id number] 07/13/2014 07/13/2014 Megan [facility] Follow Up MRI Results [id number] 07/13/2014 07/13/2014 Megan [facility] Follow Up MRI Results [id number] 07/13/2014 07/13/2014 Megan [facility] Follow Up MRI Results [id number] 07/13/2014 07/13/2014 Megan [facility] Follow Up MRI Results [id number] 07/13/2014 07/13/2014 Megan [facility] Follow Up MRI Results [id number] 07/13/2014 07/13/2014 [facility] Follow Up MRI Results [id number] 07/13/2014 07/13/2014 [facility] Follow Up MRI Results [id number] 07/13/2014 07/13/2014 [facility] Follow Up MRI Results [id number] 07/13/2014 07/13/2014 [facility] Follow Up MRI Results [id number] 07/13/2014 07/13/2014 [facility] Follow Up MRI Results [id number] 07/13/2014 07/13/2014 [facility] Follow Up MRI Results [id number] 07/13/2014 07/13/2014 [facility] Follow Up MRI Results [id number] 07/13/2014 07/13/2014 [facility] Follow Up MRI Results [id number] 07/13/2014 07/13/2014 [facility] Follow Up MRI Results [id number] 07/13/2014 07/13/2014 [facility] Clinic pain contract follow up [id number] 08/12/2014 08/12/2014 [facility] pain contract follow up [id number] 08/12/2014 08/12/2014 [facility] pain contract follow up [id number] 08/12/2014 08/12/2014 [facility] pain contract follow up [id number] 08/12/2014 08/12/2014 [facility] pain contract follow up [id number] 08/12/2014 08/12/2014 [facility] pain contract follow up [id number] 08/12/2014 08/12/2014 [facility] pain contract follow up [id number] 08/12/2014 08/12/2014 [facility] pain contract follow up [id number] 08/12/2014 08/12/2014 [facility] pain contract follow up [id number] 08/12/2014 08/12/2014 [facility] pain contract follow up [id number] 08/12/2014 08/12/2014 [facility] pain contract follow up [id number] 08/12/2014 08/12/2014 [facility] pain contract follow up [id number] 08/12/2014 08/12/2014 [facility] pain contract follow up [id number] 08/12/2014 08/12/2014 [facility] pain contract follow up [id number] 08/12/2014 08/12/2014 [facility] patient credit [id number] 09/10/2014 09/10/2014 Megan Najam [facility] patient credit [id number] 09/10/2014 09/10/2014 [facility] patient credit [id number] 09/10/2014 09/10/2014 [facility] patient credit [id number] 09/10/2014 09/10/2014 [facility] patient credit [id number] 09/10/2014 09/10/2014 [facility] patient credit [id number] 09/10/2014 09/10/2014 [facility] patient credit [id number] 09/10/2014 09/10/2014 [facility] patient credit [id number] 09/10/2014 09/10/2014 [facility] patient credit [id number] 09/10/2014 09/10/2014 [facility] patient credit [id number] 09/10/2014 09/10/2014 [facility] patient credit [id number] 09/10/2014 09/10/2014 [facility] patient credit [id number] 09/10/2014 09/10/2014 [facility] patient credit [id number] 09/10/2014 09/10/2014 [facility] Follow up Routine [id number] 09/27/2014 09/27/2014 [facility] Follow up Routine [id number] 09/27/2014 09/27/2014 [facility] Follow up Routine [id number] 09/27/2014 09/27/2014 [facility] Follow up Routine [id number] 09/27/2014 09/27/2014 [facility] Follow up Routine [id number] 09/27/2014 09/27/2014 [facility] Follow up Routine [id number] 09/27/2014 09/27/2014 [facility] Follow up Routine [id number] 09/27/2014 09/27/2014 [facility] Follow up Routine [id number] 09/27/2014 09/27/2014 [facility] Follow up Routine [id number] 09/27/2014 09/27/2014 [facility] Follow up Routine [id number] 09/27/2014 09/27/2014 [facility] Follow up Routine [id number] 09/27/2014 09/27/2014 [facility] Follow up Routine [id number] 09/27/2014 09/27/2014 [facility] Follow up Routine [id number] 09/27/2014 09/27/2014 [facility] follow up [id number] 11/25/2014 11/25/2014 [facility] follow up [id number] 11/25/2014 11/25/2014 Megan [facility] pain contract follow up [id number] 11/25/2014 11/25/2014 Megan [facility] pain contract follow up [id number] 11/25/2014 11/25/2014 Megan [facility] pain contract follow up [id number] 11/25/2014 11/25/2014 Megan [facility] pain contract follow up [id number] 11/25/2014 11/25/2014 Megan [facility] pain contract follow up [id number] 11/25/2014 11/25/2014 Megan [facility] pain contract follow up [id number] 11/25/2014 11/25/2014 Megan [facility] pain contract follow up [id number] 11/25/2014 11/25/2014 Megan [facility] pain contract follow up [id number] 11/25/2014 11/25/2014 Megan [facility] pain contract follow up [id number] 11/25/2014 11/25/2014 [facility] contract follow up [id number] 11/25/2014 11/25/2014 [facility] pain contract follow up [id number] 11/25/2014 11/25/2014 [facility] pain contract follow up [id number] 01/27/2015 01/27/2015 [facility] pain contract follow up [id number] 01/27/2015 01/27/2015 [facility] pain contract follow up [id number] 01/27/2015 01/27/2015 [facility] pain contract follow up [id number] 01/27/2015 01/27/2015 [facility] pain contract follow up [id number] 01/27/2015 01/27/2015 [facility] pain contract follow up [id number] 01/27/2015 01/27/2015 [facility] pain contract follow up [id number] 01/27/2015 01/27/2015 [facility] pain contract follow up [id number] 01/27/2015 01/27/2015 [facility] pain contract follow up [id number] 01/27/2015 01/27/2015 [facility] pain contract follow up [id number] 01/27/2015 01/27/2015 Megan Guzmán [facility] pain contract follow up [id number] 01/27/2015 01/27/2015 Megan [facility] pain contract follow up [id number] 01/27/2015 01/27/2015 Megan Guzmán [facility] Enbrel refill [id number] 01/28/2015 01/28/2015 Megan Guzmán [facility] Enbrel refill [id number] 01/28/2015 01/28/2015 Megan Guzmán [facility] Enbrel refill [id number] 01/28/2015 01/28/2015 Megan Guzm[facility] Enbrel refill [id number] 01/28/2015 01/28/2015 [facility] Enbrel refill [id number] 01/28/2015 01/28/2015 [facility] Enbrel refill [id number] 01/28/2015 01/28/2015 Megan Arielle [facility] Enbrel refill [id number] 01/28/2015 01/28/2015 [facility] Enbrel refill [id number] 01/28/2015 01/28/2015 [facility] Enbrel refill [id number] 01/28/2015 01/28/2015 [facility] Enbrel refill [id number] 01/28/2015 01/28/2015 [facility] Enbrel refill [id number] 01/28/2015 01/28/2015 [facility] Enbrel refill [id number] 01/28/2015 01/28/2015 [facility] review labs, urine culture [id number] 02/02/2015 02/02/2015 [facility] review labs, urine culture [id number] 02/02/2015 02/02/2015 [facility] review labs, urine culture [id number] 02/02/2015 02/02/2015 [facility] review labs, urine culture [id number] 02/02/2015 02/02/2015 [facility] review labs, urine culture [id number] 02/02/2015 02/02/2015 [facility] review labs, urine culture [id number] 02/02/2015 02/02/2015 [facility] review labs, urine culture [id number] 02/02/2015 02/02/2015 [facility] review labs, urine culture [id number] 02/02/2015 02/02/2015 [facility] labs, urine culture [id number] 02/02/2015 02/02/2015 [facility] review labs, urine culture [id number] 02/02/2015 02/02/2015 [facility] review labs, urine culture [id number] 02/02/2015 02/02/2015 [facility] review labs, urine culture [id number] 02/02/2015 02/02/2015 [facility] Follow up Routine [id number] 05/10/2015 05/10/2015 [facility] Follow up Routine [id number] 05/10/2015 05/10/2015 [facility] Follow up Routine [id number] 05/10/2015 05/10/2015 [facility] Follow up Routine [id number] 05/10/2015 05/10/2015 [facility] Follow up Routine [id number] 05/10/2015 05/10/2015 [facility] Follow up Routine [id number] 05/10/2015 05/10/2015 [facility] Follow up Routine [id number] 05/10/2015 05/10/2015 [facility] Follow up Routine [id number] 05/10/2015 05/10/2015 [facility] Follow up Routine [id number] 05/10/2015 05/10/2015 [facility] Follow up Routine [id number] 05/10/2015 05/10/2015 [facility] Follow up Routine [id number] 05/10/2015 05/10/2015 [facility] Follow up Routine [id number] 05/10/2015 05/10/2015 [facility] sig missing [id number] 05/10/2015 05/10/2015 [facility] sig missing [id number] 05/10/2015 05/10/2015 [facility] sig missing [id number] 05/10/2015 05/10/2015 [facility] sig missing [id number] 05/10/2015 05/10/2015 [facility] sig missing [id number] 05/10/2015 05/10/2015 [facility] sig missing [id number] 05/10/2015 05/10/2015 [facility] sig missing [id number] 05/10/2015 05/10/2015 [facility] sig missing [id number] 05/10/2015 05/10/2015 [facility] sig missing [id number] 05/10/2015 05/10/2015 [facility] sig missing [id number] 05/10/2015 05/10/2015 [facility] sig missing [id number] 05/10/2015 05/10/2015 [facility] sig missing [id number] 05/10/2015 05/10/2015 [facility] disregard [id number] 05/15/2015 05/15/2015 [facility] disregard [id number] 05/15/2015 05/15/2015 [facility] disregard [id number] 05/15/2015 05/15/2015 [facility] disregard [id number] 05/15/2015 05/15/2015 [facility] disregard [id number] 05/15/2015 05/15/2015 [facility] disregard [id number] 05/15/2015 05/15/2015 [facility] disregard [id number] 05/15/2015 05/15/2015 [facility] disregard [id number] 05/15/2015 05/15/2015 [facility] disregard [id number] 05/15/2015 05/15/2015 [facility] disregard [id number] 05/15/2015 05/15/2015 [facility] disregard [id number] 05/15/2015 05/15/2015 [facility] disregard [id number] 05/15/2015 05/15/2015 [facility] needs f/up OV [id number] 06/23/2015 06/23/2015 [facility] needs f/up OV [id number] 06/23/2015 06/23/2015 [facility] needs f/up OV [id number] 06/23/2015 06/23/2015 [facility] needs f/up OV [id number] 06/23/2015 06/23/2015 [facility] needs f/up OV [id number] 06/23/2015 06/23/2015 [facility] needs f/up OV [id number] 06/23/2015 06/23/2015 [facility] needs f/up OV [id number] 06/23/2015 06/23/2015 [facility] needs f/up OV [id number] 06/23/2015 06/23/2015 [facility] needs f/up OV [id number] 06/23/2015 06/23/2015 [facility] needs f/up OV [id number] 06/23/2015 06/23/2015 [facility] needs f/up OV [id number] 06/23/2015 06/23/2015 [facility] No show visit 12/3 [id number] 08/15/2015 08/15/2015 [facility] No show visit [id number] 08/15/2015 08/15/2015 [facility] No show visit [id number] 08/15/2015 08/15/2015 [facility] No show visit 12/3 [id number] 08/15/2015 08/15/2015 [facility] No show visit 12/3 [id number] 08/15/2015 08/15/2015 [facility] No show visit 12/3 [id number] 08/15/2015 08/15/2015 [facility] No show visit 12/3 [id number] 08/15/2015 08/15/2015 [facility] No show visit 12/3 [id number] 08/15/2015 08/15/2015 [facility] No show visit 07/07 [id number] 08/15/2015 08/15/2015 [facility] Follow up [id number] 11/07/2015 11/07/2015 [facility] Follow up [id number] 11/07/2015 11/07/2015 [facility] Follow up [id number] 11/07/2015 11/07/2015 [facility] Follow up [id number] 11/07/2015 11/07/2015 [facility] Follow up [id number] 11/07/2015 11/07/2015 [facility] Follow up [id number] 11/07/2015 11/07/2015 [facility] Follow up [id number] 11/07/2015 11/07/2015 [facility] Follow up [id number] 11/07/2015 11/07/2015 [facility] Follow up [id number] 11/07/2015 11/07/2015 [facility] Follow up [id number] 11/07/2015 11/07/2015 [facility] question on pain [id number] 12/19/2015 12/19/2015 [facility] question on pain [id number] 12/19/2015 12/19/2015 [facility] question on pain [id number] 12/19/2015 12/19/2015 [facility] question on pain [id number] 12/19/2015 12/19/2015 [facility] question on pain [id number] 12/19/2015 12/19/2015 [facility] question on pain [id number] 12/19/2015 12/19/2015 [facility] question on pain [id number] 12/19/2015 12/19/2015 [facility] question on pain [id number] 12/19/2015 12/19/2015 [facility] pain contract [id number] 01/25/2016 01/25/2016 [facility] pain contract [id number] 01/25/2016 01/25/2016 [facility] pain contract [id number] 01/25/2016 01/25/2016 [facility] pain contract [id number] 01/25/2016 01/25/2016 [facility] pain contract [id number] 01/25/2016 01/25/2016 [facility] pain contract [id number] 01/25/2016 01/25/2016 [facility] pain contract [id number] 01/25/2016 01/25/2016 [facility] Pain Contract [id number] 03/26/2016 03/26/2016 [facility] Pain Contract [id number] 03/26/2016 03/26/2016 [facility] Pain Contract [id number] 03/26/2016 03/26/2016 [facility] Pain Contract [id number] 03/26/2016 03/26/2016 [facility] Pain Contract [id number] 03/26/2016 03/26/2016 [facility] Pain Contract [id number] 03/26/2016 03/26/2016 [facility] 2 month f/u [id number] 06/13/2016 06/13/2016 [facility] 2 month f/u [id number] 06/13/2016 06/13/2016 [facility] 2 month f/u [id number] 06/13/2016 06/13/2016 [facility] 2 month f/u [id number] 06/13/2016 06/13/2016 [facility] 2 month f/u [id number] 06/13/2016 06/13/2016 [facility] pain contract [id number] 08/07/2016 08/07/2016 [facility] pain contract [id number] 08/07/2016 08/07/2016 [facility] pain contract [id number] 08/07/2016 08/07/2016 [facility] pain contract [id number] 08/07/2016 08/07/2016 [facility] HAND PAIN [id number] 09/25/2016 09/25/2016 [facility] HAND PAIN [id number] 09/25/2016 09/25/2016 [facility] HAND PAIN [id number] 09/25/2016 09/25/2016 [facility] enbrel refill request [id number] 10/01/2016 10/01/2016 [facility] enbrel refill request [id number] 10/01/2016 10/01/2016 [facility] Pain Contract Follow Up [id number] 10/04/2016 10/04/2016 Megan Najam Procedures Procedure Code Date Perfomer Comments Source
--- OUTSIDE RECORDS SUMMARY | 2018-09-14 17:53 | XMS REPORT ---
Author Author Megan Sanchez Organization [employer] Address Unknown Phone Unavailable Care Team Providers Care Emergency Room Rn Name Role Phone Megan Sanchez CP Unavailable [...]
--- OUTSIDE RECORDS SUMMARY | 2018-09-14 17:54 | XMS REPORT ---
Author Author Megan Sanchez Organization [employer] Address Unknown Phone Unavailable Care Team Providers Care Cutch Cleaner Name Role Phone Megan Sanchez CP Unavailable Allergies, Adverse Reactions, Alerts Substance Reaction Event Type N.K.D.A. Info Not Available Non Drug Allergy Problems Problem Type Condition Code Onset Dates Condition Status Assessment Counseling NOS Z71.9 Active Assessment Rheumatoid arthritis without rheumatoid factor, unspecified ankle and foot M06.079 Active Problem Rheumatoid arthritis without rheumatoid factor, [...] Active Assessment Chronic pain G89.29 Active Assessment High risk medication use Z79.899 Active Medications Medication Code System Code Instructions Start Date End Date Status Dosage Levothyroxine Sodium ND 13508356636 Orally Once a day Active 1 tablet on an empty stomach in the morning Omeprazole ND 39730283362 40 MG Orally Once a day Active 1 capsule Atorvastatin Calcium ND 87506355908 10 MG Orally Once a day Active 1 tablet Metoprolol Tartrate ND 83084150426 100 MG Orally Twice a day Active 1 tablet Ranitidine 75 NDC 0 Active not defined Hydrocodone-Acetaminophen ND 26924265441 10-325 MG Orally bid Active 1 tablet as needed Aspir-81 ND 88408084460 81 MG Orally Once a day Active 1 tablet GlipiZIDE ND 48618840777 10 MG Orally Once a day Active 1 tablet Nexium ND 34504035135 20 MG Orally Once a day Active 1 capsule Cyclobenzaprine HCl ND 47279007165 10 mg Orally bedtime Active 1 tablet as needed Vital Signs Date/Time: Jul 02, 2018 Height 62 in Blood Pressure Diastolic 53 mm Hg Blood Pressure Systolic 101 mm Hg Weight 152.2 lbs Results No Known Results Summary Purpose [employer] Submission
--- OUTSIDE RECORDS SUMMARY | 2018-09-14 17:54 | XMS REPORT ---
Author Author Megan Sanchez Organization [employer] Address Unknown Phone Unavailable Care Team Providers Care Adjusto Writer Operator Name Role Phone Megan Sanchez CP [...] End Date Status Dosage Atorvastatin Calcium ND 77033811425 10 MG Orally Once a day Active 1 tablet Metoprolol Tartrate ND 93405263258 100 MG Orally Twice a day Active 1 tablet Nexium ND 69232115721 20 MG Orally Once a day Active 1 capsule GlipiZIDE ND 86412880854 10 MG Orally Once a day Active 1 tablet Levothyroxine Sodium ND 14646948787 Orally Once a day Active 1 tablet on an empty stomach in the morning Hydrocodone-Acetaminophen ND 92448296863 10-325 MG Orally bid Active 1 tablet as needed Ranitidine 75 NDC 0 Active not defined Omeprazole ND 15688922913 40 MG Orally Once a day Active 1 capsule Aspir-81 [facility] 41373236015 81 MG Orally Once a day Active 1 tablet Cyclobenzaprine HCl ND 75146040623 10 mg Orally bedtime Active 1 tablet as needed Vital Signs Date/Time: Sep 03, 2018 Height 62 in Blood Pressure Diastolic 62 mm Hg Blood Pressure Systolic 132 mm Hg Weight 142.8 lbs Results No Known Results Summary Purpose [employer] Submission
--- OUTSIDE RECORDS SUMMARY | 2018-09-14 17:54 | XMS REPORT | Summary of Care ---
Author Author Elsy Beard Organization Unknown Address Unknown Phone Unavailable Care Team Providers Care Market Asset Protection Manager Name Role Phone SLAUGHTER P.A., JOVAN Unavailable Unavailable Elsy Beard Unavailable Unavailable RESTREPO N.P., EFRA Unavailable Unavailable ERIK P.A., UCHE Unavailable Unavailable LORENA ACOSTA ID, YADIRA Bello Unavailable Unavailable LORENA Breaux, YADIRA Unavailable Unavailable ARTURO ACOSTA ID, KEM MAYER Unavailable Unavailable SUKHJINDER RUANO, JOVAN Unavailable Unavailable ERIK JANNETTE ID, UCHE MALLOY Unavailable Unavailable ANGEL ACOSTA, FILIPE Unavailable Unavailable Unavailable Unavailable Functional Status Name Dates Details Functional status health issues are not documented Status: Name Dates Details Cognitive status health issues are not documented Status: Problems Name Dates Details Coronary artery disease (414.00, I25.10) Status: Active Rheumatoid arthritis (714.0, M06.9) Status: Active Fatigue (780.79, R53.83) Status: Active Vitamin D insufficiency (268.9, E55.9) Status: Active Abdominal pain (789.00, R10.9) Status: Active Vitamin B 12 deficiency (266.2, E53.8) Status: Active Headache (784.0, R51) Status: Active GERD (gastroesophageal reflux disease) (530.81, K21.9) Status: Active Nausea (787.02, R11.0) Status: Active Hypertriglyceridemia (272.1, E78.1) Status: Active Depression with anxiety (300.4, F41.8) Status: Active Hyperlipidemia (272.4, E78.5) Status: Active Type 2 diabetes mellitus (250.00, E11.9) Status: Active Dermatitis (692.9, L30.9) Status: Active Urinary frequency (788.41, R35.0) Status: Active Need for hepatitis C screening test (V73.89, Z11.59) Status: Active History of nephrolithiasis (V13.01, Z87.442) Status: Active Acute URI (465.9, J06.9) Status: Active 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, 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 Insomnia (780.52, G47.00) Status: Active Acute bacterial bronchitis (466.0, J20.8) Status: Active Chronic cough (786.2, R05) Status: Active Hypothyroidism (244.9, E03.9) Status: Active Generalized hyperhidrosis (780.8, R61) Status: Active Essential (primary) hypertension (401.9, I10) Status: Active Unintentional weight loss (783.21, R63.4) Status: Active Bilateral pain of leg and foot (729.5, M79.604) Status: Active Weakness of both lower extremities (729.89, R29.898) Status: Active Low back pain (724.2, M54.5) Status: Active Persistent cough (786.2, R05) Status: Active Multilevel degenerative disc disease (722.6, M53.9) Status: Active Facet arthropathy, 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, M47.819) Status: Active Medications Name Dates Details Metoprolol Tartrate 50 MG Oral Tablet TAKE ONE (1) TABLET(S) BY MOUTH TWICE A DAY. Quantity: 180 RESTREPO N.P., EFRA * Start : 08-Aug-2018 Active Atorvastatin Calcium 40 MG Oral Tablet TAKE 1 TABLET DAILY DIRECTED. * Quantity: 1 Refills: 5 RESTREPO N.P., EFRA Active 30 Tablet Pack Aspir-81 TBEC TAKE 1 TABLET DAILY. * Refills: 0 Active Levothyroxine Sodium 88 MCG Oral Tablet TAKE ONE TABLET BY MOUTH EVERY DAY DIRECTED * Quantity: 90 Refills: 1 RESTREPO N.P., EFRA * Start : 23-May-2018 Active Ondansetron HCl - 4 MG Oral Tablet TAKE ONE (1) TABLET(S) BY MOUTH EVERY EIGHT HOURS. * Quantity: 15 Refills: 0 RESTREPO N.P., EFRA * Start : 13-Jun-2018 Active HYDROcodone-Acetaminophen 10-325 MG Oral Tablet TAKE 1 TABLET Every twelve hours PRN * Refills: 0 Active glipiZIDE ER 5 MG Oral Tablet Extended Release 24 Hour TAKE ONE (1) TABLET(S) BY MOUTH DAILY NEEDS OFFICE VISIT. * Quantity: 30 Refills: 0 RESTREPO N.P., EFRA * Start : 14-Aug-2018 Active metFORMIN HCl ER 500 MG Oral Tablet Extended Release 24 Hour TAKE 2 TABLETS ONCE DAILY WITH THE EVENING MEAL. * Quantity: 180 Refills: 1 RESTREPO N.P., EFRA Active DULoxetine HCl - 30 MG Oral Capsule Delayed Release Particles TAKE 1 CAPSULE DAILY * Quantity: 90 Refills: 0 RESTREPO N.P., EFRA * Start : 09-Jul-2018 Active raNITIdine HCl - 150 MG Oral Tablet TAKE ONE (1) TABLET(S) BY MOUTH TWICE A DAY. * Quantity: 60 Refills: 2 RESTREPO N.P., EFRA * Start : 21-Mar-2018 Active Zolpidem Tartrate 10 MG Oral Tablet TAKE 1 TABLET BY MOUTH EVERY DAY NEEDED FOR INSOMNIA. * Quantity: 30 Refills: 2 RESTREPO N.P., EFRA * Start : 21-Mar-2018 Active Sncauawihw-PTZR-Cxpbqsgy 50-300-40 MG Oral Capsule TAKE 1 CAPSULE Daily PRN ANTHONY * Quantity: 30 Refills: 0 RESTREPO N.P., EFRA * Start : 02-Apr-2018 Active Mometasone Furoate 0.1 % External Ointment APPLY SPARINGLY TO AFFECTED AREA(S) TWICE DAILY * Quantity: 1 Refills: 0 RESTREPO N.P., EFRA * Start : 16-Jun-2018 Active 45 GM Tube valACYclovir HCl - 1 GM Oral Tablet TAKE 1 TABLET TWICE DAILY * Quantity: 6 Refills: 0 SLAUGHTER P.A.JOVAN * Start : 23-Jul-2018 Active ProAir RespiClick 108 (90 Base) MCG/ACT Inhalation Aerosol Powder Breath Activat ed 1-2 puffs Q4-6H PRN wheezing or shortness of breath * Quantity: 1 Refills: 1 UCHE REID * Start : 13-Aug-2018 Active Levocetirizine Dihydrochloride 5 MG Oral Tablet TAKE 1 TABLET DAILY IN THE EVENING. * Quantity: 30 Refills: 3 RESTREPO N.P., EFRA * Start : 04-Sep-2018 Active Montelukast Sodium 10 MG Oral Tablet TAKE 1 TABLET DAILY * Quantity: 30 Refills: 2 RESTREPO N.P., EFRA * Start : 04-Sep-2018 Active Fluticasone Propionate 50 MCG/ACT Nasal Suspension USE 1 SPRAY IN EACH NOSTRIL TWICE DAILY. * Quantity: 1 Refills: 1 RESTREPO N.P., EFRA * Start : 09-Sep-2018 Active 16 GM Bottle Allergies and Adverse Reactions Name Dates Details No Known Allergies (Allergy) Status: Active Past Medical History Name Dates Details History of hepatitis C virus infection (V12.09, Z86.19) Status: Resolved History of myocardial infarction (412, I25.2) Status: Resolved Procedures Procedure Dates Details [N] PATRICIA-Ankle Brachial Index Multiple Levels 75894 Date: 04-Sep-2018 MRI Spine lumbar wo contrast [id number] Date: 09-Sep-2018 CT Spine lumbar wo contrast [id number] Date: 12-Sep-2018 History of Hysterectomy Completed History of Coronary artery bypass graft Completed Immunization Name Dates Details Influenza, seasonal, injectable on: 05-Jul-2017 Engerix-B 20 MCG/ML Intramuscular Injectable on: 30-Nov-2017 Havrix 1440 EL U/ML Intramuscular Suspension on: 30-Nov-2017 Pneumovax 23 25 MCG/0.5ML Injection Injectable on: 30-Nov-2017 Engerix-B 20 MCG/ML Injection Suspension on: 25-Dec-2017 Fluzone Quadrivalent 0.5 ML Intramuscular Suspension Prefilled Syringe on: 12-May-2018 Family History Name Dates Details Family history of chronic obstructive pulmonary disease (V17.6, Z82.5) Status: Active Name Dates Details Family history of cerebrovascular accident (CVA) (V17.1, Z82.3) Status: Active Family history of chronic kidney disease (V18.69, Z84.1) Status: Active Social History Name Dates Details - Status: Name Dates Details Former smoker Vital Signs Date Test Result Details [id number] BP Systolic 126 mm[Hg] Status: Comments: Location: LUE; Position: Sitting BP Diastolic 79 mm[Hg] Status: Comments: Location: LUE; Position: Sitting Height 62 in Status: Weight 144 lb Status: Body Mass Index Calculated 26.34 kg/m2 Status: Body Surface Area Calculated 1.66 m2 Status: Temperature 97.7 f Status: Heart Rate 79 /min Status: Respiration Rate 16 /min Status: Results Date Description Value Details [id number]-[id number]:25 [QLH] CBC (INCLUDES DIFF/PLT) WHITE BLOOD CELL COUNT 8.3 {Thousand/u} (Normal) Range: 3.8-10.8 RED BLOOD CELL COUNT 4.36 {Million/uL} (Normal) Range: 3.80-5.10 HEMAGLOBIN 12.6 g/dl (Normal) Range: 11.7-15.5 HEMATOCRIT 36.4 % (Normal) Range: 35.0-45.0 MCV 83.5 fL (Normal) Range: 80.0-100.0 MCH 28.9 pg (Normal) Range: 27.0-33.0 MCHC 34.6 g/dl (Normal) Range: 32.0-36.0 RDW 14.1 % (Normal) Range: 11.0-15.0 PLATELET COUNT 212 {Thousand/u} (Normal) Range: 140-400 MPV 11.3 fL (Normal) Range: 7.5-12.5 ABSOLUTE NEUTROPHILS 5320 {cells/uL} (Normal) Range: 4095-0895 ABSOLUTE LYMPHOCYTES 2083 {cells/uL} (Normal) Range: 850-3900 ABSOLUTE MONOCYTES 706 {cells/uL} (Normal) Range: 200-950 ABSOLUTE EOSINOPHILS 141 {cells/uL} (Normal) Range: 15-500 ABSOLUTE BASOPHILS 50 {cells/uL} (Normal) Range: 0-200 NEUTROPHILS 64.1 % (Normal) LYMPHOCYTES 25.1 % (Normal) MONOCYTES 8.5 % (Normal) EOSINOPHILS 1.7 % (Normal) BASOPHILS 0.6 % (Normal) 5-Bkz-[id number]:25 [FORM[facility]] TSH, 3RD GENERATION W/REFLEX TO FT4 Comments: REPORT COMMENT:FASTING:NO TSH, 3RD GENERATION W/REFLEX TO FT4 1.61 {MIU/L} (Normal) Range: 0.40-4.50 44-Hvl-12301:31 XRAY Chest 2 views [id number] Chest 2 views SEE NOTES Comments: EXAM: XR CHEST 2 VIEWSDATE: 08/14/2018 9:31 CSTINDICATION: - chronic cough, acute bacterial bronchitisCOMPARISON: None.TECHNIQUE: PA and lateral chest radiographsFINDINGS:Lines and tubes: Left chest wall pacemaker with cardiac leads that project overthe right ventricle and right atrium.Median sternotomy wires.Lungs and pleura: Inflated lungs without consolidations.Biapical scarring.No pleural effusions or pneumothorax.Heart and mediastinum: The cardiac silhouette is normal for technique. Themediastinal contours are normal. Bones: Degenerative changes of the bilateral AC joints. No acute osseouschanges of the thoracic spine.Soft tissues: Unremarkable.IMPRESSION: No acute cardiopulmonary abnormality.--Read by: Horace Taylor MDDictated Date/time: 08/14/18 12:00Electronically Signed by: Horace Taylor MD 08/14/1911:01FINAL REPORT [id number] XRAY Spine lumbar series [id number] Spine lumbar series SEE NOTES Comments: EXAM: XR LUMBAR SPINE 5 VIEWSDATE: 09/04/2018 13:00 CSTINDICATION: - low back painCOMPARISON: None availableTECHNIQUE: Lumbar spine with obliques -- 5 viewsFINDINGS: Segmentation anomaly with 4 nonrib-bearing lumbar vertebral bodies and asacralized L5 transition segment noted.For the purposes of this report the first for nonrib- bearing lumbar vertebralbodies are labeled L1-L4 and the sacralized transition segment is labeled L5.No spondylolisthesis present.Diffuse osteopenia noted.Vertebral body heights are normal.No lumbar spine fracture is identified.No paravertebral soft tissue edema observed.Mild-moderate aortoiliac atherosclerosis noted.Cholecystectomy clips present in the right upper quadrant.Partially visualized cardiac pacer wires noted on the right heart.Lower sternotomy wires noted.Mild spondylosis and degenerative disc disease present at T9-T11.Mild spondylosis and degenerative disc disease present at L2-L4.Severe right-sided facet arthropathy present at L4-L5.IMPRESSION:Thoracolumbar degenerative disc disease and spondylosis as described.Severe right-sided facet arthropathy at L4-L5.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 On: 09-Oct-2018 13:00 Instructions Name Dates Details Instructions not documented Encounters Appointment; EFRA RESTREPO NP Encounter Diagnosis: Problem not documented On: 20-Nov-2017 16:00 Appointment; EFRA RESTREPO NP Encounter Diagnosis: Problem not documented On: 27-Nov-2017 11:45 Appointment; EFRA RESTREPO, POULTRY HATCHERY SUPERVISOR Encounter Diagnosis: Problem not documented On: 21-Mar-2018 14:30 Appointment; EFRA RESTREPO, POULTRY HATCHERY SUPERVISOR Encounter Diagnosis: Problem not documented On: 02-Apr-2018 18:00 Appointment; YADIRA CARRILLO M.D. Encounter Diagnosis: Problem not documented On: 11-Apr-2018 16:15 Appointment; RESTREPOEFRA, POULTRY HATCHERY SUPERVISOR Encounter Diagnosis: Problem not documented On: 16-Apr-2018 19:00 Appointment; RESTREPOEFRA, POULTRY HATCHERY SUPERVISOR Encounter Diagnosis: Problem not documented On: 22-Apr-2018 17:30 Appointment; RESTREPO EFRA, POULTRY HATCHERY SUPERVISOR Encounter Diagnosis: Problem not documented On: 23-Apr-2018 16:15 Appointment; RESTREPOEFRA, POULTRY HATCHERY SUPERVISOR Encounter Diagnosis: Problem not documented On: 30-Apr-2018 19:00 Appointment; EFRA RESTREPO, POULTRY HATCHERY SUPERVISOR Encounter Diagnosis: Problem not documented On: 28-May-2018 17:30 Appointment; RESTREPOJANESSAUY, POULTRY HATCHERY SUPERVISOR Encounter Diagnosis: Problem not documented On: 16-Jun-2018 12:30 Appointment; EFRA RESTREPO, POULTRY HATCHERY SUPERVISOR Encounter Diagnosis: Problem not documented On: 23-Jun-2018 17:45 Appointment; EFRA RESTREPO, POULTRY HATCHERY SUPERVISOR Encounter Diagnosis: Problem not documented On: 25-Jun-2018 17:30 Appointment; JOVAN SLAUGHTER PValorie Encounter Diagnosis: Problem not documented On: 23-Jul-2018 9:15 Appointment; EFRA RESTREPO, POULTRY HATCHERY SUPERVISOR Encounter Diagnosis: Problem not documented On: 23-Jul-2018 17:30 Appointment; EFRA RESTREOP, POULTRY HATCHERY SUPERVISOR Encounter Diagnosis: Problem not documented On: 23-Jul-2018 17:30 Appointment; JOVAN SLAUGHTER PBonnieABonnie Encounter Diagnosis: Problem not documented On: 09-Aug-2018 10:00 Appointment; UCHE VALENCIA P.A. Encounter Diagnosis: Problem not documented On: 13-Aug-2018 15:30 Appointment; EFRA RESTREPO, POULTRY HATCHERY SUPERVISOR Encounter Diagnosis: Problem not documented On: 27-Aug-2018 17:30 Appointment; EFRA RESTREPO, POULTRY HATCHERY SUPERVISOR Encounter Diagnosis: Problem not documented On: 04-Sep-2018 11:45
--- OUTSIDE RECORDS SUMMARY | 2018-09-14 17:54 | XMS REPORT ---
Author Author Megan Sanchez Organization [employer] Address Unknown Phone Unavailable Care Team Providers Care Brake Shoe Rebuilder Name Role Phone Megan Sanchez CP Unavailable [...]
[2018-09-14 19:17] LABS: BASOPHILS % 0.3 % (0.0-1.0); EOSINOPHILS # (AUTO) 0.1 (0.0-0.4); EOSINOPHILS % 1.2 % (0.0-6.0); HEMATOCRIT 33.1 % (34.2-44.1); HEMOGLOBIN 11.3 g/dL (12.0-16.0); LYMPHOCYTES % 18.9 % (18.0-39.1); MEAN CORPUSCULAR HGB CONC 34.1 g/dL (31-35); MEAN CORPUSCULAR VOLUME 81.9 fL (81-99); MONOCYTES % 9.3 % (4.4-11.3); NEUTROPHILS # (AUTO) 7.4 (2.1-6.9); NEUTROPHILS % 69.6 % (38.7-80.0); PLATELET COUNT 301 x10e3/uL (140-360); RED BLOOD COUNT 4.04 x10e6/uL (3.6-5.1); RED CELL DISTRIBUTION WIDTH 13.3 % (11.7-14.4)
[2018-09-14 19:33] LABS: PROTHROMBIN TIME 14.1 seconds (11.9-14.5)
[2018-09-14] MEDS ORDERED: LEVOTHYROXINE88 MCG PO (19:37)
[2018-09-14 19:40] LABS: CLARITY,URINE CLOUDY (CLEAR); COLOR,URINE YELLOW (YELLOW); LEUKOCYTE ESTERASE ,URINE NEGATIVE (NEGATIVE); NITRITE,URINE NEGATIVE (NEGATIVE); PROTEIN,URINE DIPSTICK 1+ (NEGATIVE)
[2018-09-14 19:41] LABS: AMORPHOUS SEDIMENT,URINE FEW (FEW); BACTERIA,URINE MODERATE /HPF; BILIRUBIN,URINE 1+ (NEGATIVE); EPITHELIAL CELLS,URINE MODERATE /LPF; KETONES,URINE 1+ (NEGATIVE); RBC,URINE 0-5 /HPF (0-5); URINE UROBILINOGEN 1 mg/dL (0.2 - 1)
[2018-09-14 19:44] LABS: CREATINE KINASE MB 0.8 ng/mL (0-5.0)
[2018-09-14] MEDS ORDERED: MONTELUKAST SOD10 MG PO (19:47)
[2018-09-14] MEDS ORDERED: ATORVASTATIN CA40 MG PO (19:47)
[2018-09-14] MEDS ORDERED: LEVOCETIRIZINE D5 MG PO (19:47)
[2018-09-14] MEDS ORDERED: ASPIR 8181 MG PO (19:48)
[2018-09-14 19:59] LABS: ALBUMIN 3.3 g/dL (3.5-5.0); ALBUMIN/GLOBULIN RATIO 0.8 (0.8-2.0); ANION GAP 17.8 mmol/L (8-16); CALCIUM 9.8 mg/dL (8.4-10.2); CREATININE, SERUM 0.98 mg/dL (0.57-1.11); MAGNESIUM 1.5 MG/DL (1.3-2.1); POTASSIUM 3.8 mmol/L (3.5-5.1)
--- NOTE | 2018-09-14 20:07 | Diagnostic Imaging Report ---
CHEST 2 VIEWS, Technique: CHEST 2 VIEWS Comparison: None Clinical history: ^fever, cough, rule out pneumonia. Last smoked 40 year ago ^[id number] ^1919 ^Y DISCUSSION: Left chest wall dual pacer. Normal heart size status post median sternotomy. No consolidation or edema, effusion or pneumothorax. Biapical pleural parenchymal scarring. 4-5 mm dense nodule over right mid lung. IMPRESSION: 1. No acute abnormality. 2. Likely calcified 4-5 mm nodule over the right mid lung. Consider short term 3 month follow up upright PA and lateral to confirm stability. Signed by: Dr Juliet Roth MD on 09/14/2018 8:04 PM
[2018-09-14 20:58] VITALS: BP 105/56
== END 2018-09-14 21:00 | disposition home or self-care (01) ==
LOC: ER 17:50
DX: R50.9 Fever, unspecified (principal); R05 Cough; J20.9 Acute bronchitis, unspecified; I10 Essential (primary) hypertension; E11.65 Type 2 diabetes mellitus with hyperglycemia; I25.10 Atherosclerotic heart disease of native coronary artery without angina pectoris; I25.2 Old myocardial infarction; Z95.1 Presence of aortocoronary bypass graft; Z95.0 Presence of cardiac pacemaker
CPT/HCPCS: 36415; 71046; 80053; 81001; 82550; 82553; 83605; 83735; 84484; 85025; 85610; 87400; 93005; 99284

== ENCOUNTER 2019-06-14 12:59 | Emergency (ER) | payer OTHER ==
[~2019-06-14] VITALS: Ht 157.5 cm; Wt 63.5 kg
[~2019-06-14 12:59] MED LIST changes: +ASPIR 8181 MG PO; +ATORVASTATIN CA40 MG PO; +LEVOCETIRIZINE D5 MG PO; +LEVOTHYROXINE88 MCG PO; +MONTELUKAST SOD10 MG PO
--- OUTSIDE RECORDS SUMMARY | 2019-06-14 13:03 | XMS REPORT | Summary of Care ---
Author Author CLAUDIO Rooney, JUAN R Organization Unknown Address Unknown Phone Unavailable Care Team Providers Care Machine Worker Name Role Phone CLAUDIO Rooney, JUAN R Unavailable Unavailable RESTREPO N.P., EFRA Unavailable Unavailable LORENA ACOSTA, YADIRA Bello Unavailable Unavailable ERIK JANNETTE AK, UCHE MALLOY Unavailable Unavailable ANGEL ACOSTA, FILIPE Unavailable Unavailable RESTREPO WOOD PATTERNMAKER-C, EFRA THI Unavailable Unavailable RAVEN ACOSTA AK, DIONE Quevedo Unavailable Unavailable EFRA ACOSTA, MAYCO Unavailable Unavailable RESTREPO AA AK, LYNDON Unavailable Unavailable LORENA Breaux, YADIRA Unavailable Unavailable ARTURO ACOSTA AK, KEM MAYER Unavailable Unavailable SLAUGHTER PA-C, JOVAN Unavailable Unavailable Unavailable Unavailable Functional Status Name Dates Details Functional status health issues are not documented Status: Name Dates Details Cognitive status health issues are not documented Status: Problems Name Dates Details Fatigue (780.79, R53.83) Status: Active Vitamin D insufficiency (268.9, E55.9) Status: Active Vitamin B 12 deficiency (266.2, E53.8) Status: Active Headache (784.0, R51) Status: Active Hypertriglyceridemia (272.1, E78.1) Status: Active Hyperlipidemia (272.4, E78.5) Status: Active History of nephrolithiasis (V13.01, Z87.442) Status: Active 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, 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 Dermatitis (692.9, L30.9) Status: Active Coronary artery disease (414.00, I25.10) Status: Active Facet arthropathy, 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, 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) Status: Active Rheumatoid arthritis (714.0, M06.9) Status: Active Weakness of both lower extremities (729.89, R29.898) Status: Active Multilevel degenerative disc disease (722.6, M53.9) Status: Active Low back pain (724.2, M54.5) Status: Active Presence of permanent cardiac pacemaker (V45.01, Z95.0) Status: Active DDD (degenerative disc disease), lumbar (722.52, M51.36) Status: Active Closed C7 fracture without spinal cord injury, with routine healing, subsequent encounter (V54.17, S12.600D) Status: Active Seasonal allergies (477.9, J30.2) Status: Active Need for Tdap vaccination (V06.1, Z23) Status: Active Need for shingles vaccine (V04.89, Z23) Status: Active Microalbuminuria (791.0, R80.9) Status: Active Insomnia (780.52, G47.00) Status: Active Breast cancer screening (V76.10, Z12.39) Status: Active Screening for osteoporosis (V82.81, Z13.820) Status: Active Postmenopausal (V49.81, Z78.0) Status: Active GERD (gastroesophageal reflux disease) (530.81, K21.9) Status: Active Nausea (787.02, R11.0) Status: Active Hypothyroidism (244.9, E03.9) Status: Active Generalized hyperhidrosis (780.8, R61) Status: Active Depression with anxiety (300.4, F41.8) Status: Active Essential (primary) hypertension (401.9, I10) Status: Active Need for influenza vaccination (V04.81, Z23) Status: Active Type 2 diabetes mellitus (250.00, E11.9) Status: Active Acute bacterial bronchitis (466.0, J20.8) Status: Active Medications Name Dates Details Metoprolol Tartrate 50 MG Oral Tablet TAKE 1 TABLET TWICE DAILY Quantity: 180 RESTREPO N.P., EFRA * Start : 08-Aug-2018 Active Atorvastatin Calcium 40 MG Oral Tablet TAKE 1 TABLET DAILY DIRECTED. * Quantity: 90 Refills: 1 RESTREPO N.P., EFRA * Start : 24-Feb-2019 Active Aspirin 81 TBEC TAKE 1 TABLET DAILY. * Refills: 0 Active Levothyroxine Sodium 88 MCG Oral Tablet TAKE 1 TABLET DAILY. * Quantity: 90 Refills: 1 RESTREPO N.P., EFRA * Start : 23-May-2018 Active glipiZIDE ER 5 MG Oral Tablet Extended Release 24 Hour TAKE 1 TABLET DAILY. * Quantity: 90 Refills: 0 RESTREPO N.P., EFRA * Start : 10-Jun-2018 Active metFORMIN HCl ER 500 MG Oral Tablet Extended Release 24 Hour TAKE 1 TABLET TWICE DAILY * Quantity: 180 Refills: 1 RESTREPO N.P., EFRA * Start : 21-Apr-2019 Active DULoxetine HCl - 60 MG Oral Capsule Delayed Release Particles TAKE 1 CAPSULE DAILY * Quantity: 90 Refills: 1 RESTREPO N.P., EFRA * Start : 21-Mar-2018 Active raNITIdine HCl - 150 MG Oral Tablet TAKE ONE (1) TABLET(S) BY MOUTH TWICE A DAY. * Quantity: 180 Refills: 1 RESTREPO N.P., EFRA * Start : 21-Mar-2018 Active Mometasone Furoate 0.1 % External Ointment APPLY SPARINGLY TO AFFECTED AREA(S) TWICE DAILY * Quantity: 1 Refills: 0 RESTREPO N.P., EFRA * Start : 16-Jun-2018 Active 45 GM Tube ProAir RespiClick 108 (90 Base) MCG/ACT Inhalation Aerosol Powder Breath Activat ed 1-2 puffs Q4-6H PRN wheezing or shortness of breath * Quantity: 1 Refills: 1 RESTREPO N.P., EFRA * Start : 13-Aug-2018 Active Montelukast Sodium 10 MG Oral Tablet TAKE 1 TABLET DAILY * Quantity: 30 Refills: 2 RESTREPO N.P., EFRA * Start : 04-Sep-2018 Active Fluticasone Propionate 50 MCG/ACT Nasal Suspension USE 1 SPRAY IN EACH NOSTRIL TWICE DAILY. * Quantity: 1 Refills: 1 RESTREPO N.P., EFRA * Start : 09-Sep-2018 Active 16 GM Bottle Losartan Potassium 25 MG Oral Tablet TAKE 1 TABLET IN THE MORNING AND 1/2 TABLET IN THE EVENING. * Quantity: 135 Refills: 0 RESTREPO N.P., EFRA * Start : 09-Oct-2018 Active Triamcinolone Acetonide 0.147 MG/GM External Aerosol Solution APPLY SPARINGLY TO AFFECTED AREA(S) 3 TIMES A DAY * Quantity: 1 Refills: 0 RESTREPO N.P., EFRA * Start : 10-Oct-2018 Active 63 GM Can Tdap INJECT 0.5 ML Intramuscular * Quantity: 1 Refills: 0 RESTREPO N.P., EFRA * Start : 04-Feb-2019 Active Shingrix 50 MCG Intramuscular Suspension Reconstituted INJECT 50 MCG Once * Quantity: 1 Refills: 1 RESTREPO N.P., EFRA * Start : 04-Feb-2019 Active Promethazine HCl - 25 MG Oral Tablet TAKE 1 TABLET EVERY 6 HOURS NEEDED. * Quantity: 20 Refills: 0 RESTREPO N.P., EFRA * Start : 25-Mar-2019 Active Esomeprazole Magnesium 40 MG Oral Capsule Delayed Release TAKE 1 CAPSULE ONCE DAILY * Quantity: 90 Refills: 1 RESTREPO N.P., EFRA * Start : 25-Mar-2019 Active ALPRAZolam 0.25 MG Oral Tablet TAKE 1 TABLET TWICE DAILY NEEDED. * Quantity: 30 Refills: 2 RESTREPO N.P., EFRA * Start : 05-May-2019 Active traMADol HCl - 50 MG Oral Tablet TAKE 1 TABLET EVERY 4 TO 6 HOURS NEEDED FOR PAIN. * Quantity: 180 Refills: 0 RESTREPO N.P., EFRA * Start : 05-May-2019 Active Azithromycin 250 MG Oral Tablet TAKE 2 TABLETS ON DAY 1 THEN TAKE 1 TABLET A DAY FOR 4 DAYS. * Quantity: 1 Refills: 0 SNYDER N.P., JUAN R * Start : 09-May-2019 Active 6 Tablet Pack predniSONE 20 MG Oral Tablet TAKE 1 TABLET DAILY DIRECTED. * Quantity: 5 Refills: 0 SNYDER N.P., JUAN R * Start : 09-May-2019 Active Benzonatate 100 MG Oral Capsule 1-2 caps as needed every 8 hours wit mucinex DM or Delsym OTC. * Quantity: 30 Refills: 0 SNYDER N.P., JUAN R * Start : 09-May-2019 Active Allergies and Adverse Reactions Name Dates Details buPROPion HCl TABS (Adverse Event) Status: Active lisinopril (Adverse Event) Status: Active Past Medical History Name Dates Details History of hepatitis C virus infection (V12.09, Z86.19) Status: Resolved History of myocardial infarction (412, I25.2) Status: Resolved Procedures Procedure Dates Details History of Hysterectomy Completed History of Coronary artery bypass graft Completed Immunization Name Dates Details Influenza, seasonal, injectable on: 05-Jul-2017 Pneumovax 23 25 MCG/0.5ML Injection Injectable on: 30-Nov-2017 Havrix 1440 EL U/ML Intramuscular Suspension on: 30-Nov-2017 Engerix-B 20 MCG/ML Intramuscular Injectable on: 30-Nov-2017 Engerix-B 20 MCG/ML Injection Suspension on: 25-Dec-2017 Fluzone Quadrivalent 0.5 ML Intramuscular Suspension Prefilled Syringe on: 12-May-2018 Fluzone Quadrivalent 0.5 ML Intramuscular Suspension Prefilled Syringe Lot #: [id number] on: 05-May-2019 Family History Name Dates Details Family history of chronic obstructive pulmonary disease (V17.6, Z82.5) Status: Active Name Dates Details Family history of cerebrovascular accident (CVA) (V17.1, Z82.3) Status: Active Family history of chronic kidney disease (V18.69, Z84.1) Status: Active Social History Name Dates Details - Status: Name Dates Details Former smoker Vital Signs Date Test Result Details :32 BP Systolic 114 mm[Hg] Status: Comments: Location: LUE; Position: Sitting BP Diastolic 68 mm[Hg] Status: Comments: Location: LUE; Position: Sitting Height 62 in Status: Weight 139 lb Status: Body Mass Index Calculated 25.42 kg/m2 Status: Body Surface Area Calculated 1.64 m2 Status: Temperature 98 f Status: Comments: Method: Oral Heart Rate 80 /min Status: Comments: Location: L Radial; Quality: Normal [id number] BP Systolic 145 mm[Hg] Status: Comments: Location: LUE; Position: Sitting BP Diastolic 76 mm[Hg] Status: Comments: Location: LUE; Position: Sitting Height 62 in Status: Weight 138.4375 lb Status: Body Mass Index Calculated 25.32 kg/m2 Status: Body Surface Area Calculated 1.63 m2 Status: Temperature 97.9 f Status: Comments: Method: Temporal Heart Rate 80 /min Status: Respiration Rate 16 /min Status: Physical Findings 0 Status: Comments: Pain Scale Physical Findings 0 Status: Comments: Alcohol Screen - How many times in the past yr have you had 5 (for M) or 4 (for F) or 4 (for all > 65yrs) or more drinks in a day? [id number] Physical Findings 3 Status: Comments: PHQ-9 Adult Depression Screening Results Date Description Value Details 1-Fwr-419651:45 [O] Hemoglobin A1c (in office) HEMOGLOBIN A1c 6.1 0-Sxd-[id number]:04 [O] Streptococcus Test Rapid (In Office) Group A Strep Screen Negative (Normal) 1-Hmx-218692:05 [O] Flu Test (in Office ) Flu A Negative (Normal) Flu B Negative (Normal) Plan of Care Name Dates Details Planned Observations Planned Goals not documented Planned Encounters Appointment; EFRA RESTREPO NP On: 13-Aug-2019 9:30 Appointment; EFRA RESTREPO NP On: 04-Nov-2019 10:00 Interventions Provided Medication Changes* Azithromycin 250 MG Oral Tablet - Start * Benzonatate 100 MG Oral Capsule - Start * predniSONE 20 MG Oral Tablet - Start Labs/Procedures/Imaging* [O] Flu Test (in Office ); Done: 09 May 2019 * [O] Streptococcus Test Rapid (In Office); Done: 09 May 2019 Plan* increase fluids * rest * rt [facility] 2-3 days if no better or worse Instructions Name Dates Details Instructions not documented [...] not documented On: 30-Apr-2018 19:00 Appointment; EFRA RESTREPO NP Encounter Diagnosis: Problem not documented On: 28-May-2018 17:30 Appointment; EFRA RESTREPO NP Encounter Diagnosis: Problem not documented On: 16-Jun-2018 12:30 Appointment; EFRA RESTREPO NP Encounter Diagnosis: Problem not documented On: 23-Jun-2018 17:45 Appointment; EFRA RESTREPO NP Encounter Diagnosis: Problem not documented On: 25-Jun-2018 17:30 Appointment; JOVAN SLAUGHTER P.A. Encounter Diagnosis: Problem not documented On: 23-Jul-2018 9:15 Appointment; RESTREPO, EFRA, WOOD PATTERNMAKER Encounter Diagnosis: Problem not documented On: 23-Jul-2018 17:30 Appointment; EFRA RESTREPO WOOD PATTERNMAKER Encounter Diagnosis: Problem not documented On: 23-Jul-2018 17:30 Appointment; JOVAN SLAUGHTER P.A. Encounter Diagnosis: Problem not documented On: 09-Aug-2018 10:00 Appointment; UCHE VALNECIA P.A. Encounter Diagnosis: Problem not documented On: 13-Aug-2018 15:30 Appointment; EFRA RESTREPO WOOD PATTERNMAKER Encounter Diagnosis: Problem not documented On: 27-Aug-2018 17:30 Appointment; EFRA RESTREPO WOOD PATTERNMAKER Encounter Diagnosis: Problem not documented On: 04-Sep-2018 11:45 Appointment; EFRA RESTREPO WOOD PATTERNMAKER Encounter Diagnosis: Problem not documented On: 09-Oct-2018 11:45 Appointment; DIXIE DE LEON M.D. Encounter Diagnosis: Problem not documented On: 09-Oct-2018 13:00 Appointment; DIONE CARBAJAL M.D. Encounter Diagnosis: Problem not documented On: 10-Nov-2018 10:00 Appointment; EFRA RESTREPO WOOD PATTERNMAKER Encounter Diagnosis: Problem not documented On: 10-Dec-2018 18:00 Appointment; EFRA RESTREPO WOOD PATTERNMAKER Encounter Diagnosis: Problem not documented On: 26-Dec-2018 17:45 Appointment; EFRA RESTREPO WOOD PATTERNMAKER Encounter Diagnosis: Problem not documented On: 04-Feb-2019 11:30 Appointment; EFRA RESTREPO WOOD PATTERNMAKER Encounter Diagnosis: Problem not documented On: 25-Mar-2019 11:45 Appointment; EFRA RESTREPO WOOD PATTERNMAKER Encounter Diagnosis: Problem not documented On: 05-May-2019 13:30 Appointment; JUAN R SNYDER NP Encounter Diagnosis: Problem not documented On: 09-May-2019 9:15
[2019-06-14] MEDS ORDERED: ONDANSETRON HCL INJ 2MG/ML 2ML 2 MG/ML VIAL IV ONE (13:30)
[2019-06-14] MEDS ORDERED: MORPHINE SULFATE INJ 4 MG/ML INJ 1ML IV ONE (13:30)
--- NOTE | 2019-06-14 13:34 | NUR ---
RADIOLOGY AT BEDSIDE
[2019-06-14] MEDS ORDERED: PROPOFOL IV EMULSION 10 MG/ML 20 ML VIAL IV ONE (14:00)
--- NOTE | 2019-06-14 14:04 | Diagnostic Imaging Report ---
Ankle complete CPT CODE: 70915 HISTORY: Fall TECHNIQUE: Three views left ankle obtained COMPARISON: None. FINDINGS: Fractures through the medial malleolus and a fracture through the distal fibular diaphysis lateral dislocation of the fracture fragment. There is a small nondisplaced posterior malleolar fracture. The talus is rotated laterally relative to the tibial plafond. The talus is intact. The calcaneus is intact. Visualized portions of the midfoot and forefoot are intact. IMPRESSION: Trimalleolar ankle fracture with disruption of the ankle mortise. Signed by: Dr. Lee Ford MD on 06/14/2019 2:01 PM
--- NOTE | 2019-06-14 14:05 | Diagnostic Imaging Report ---
Left complete knee, portable. CPT CODE: 89995. INDICATION: Fall, trauma COMPARISON: None FINDINGS: No evidence of acute fracture or dislocation. The visualized joint spaces of the knee are preserved. No joint effusion. There are vascular clips in the medial and posterior aspect of the proximal lower extremity. IMPRESSION: No acute traumatic pathology. Signed by: Dr. Lee Ford MD on 06/14/2019 2:02 PM
--- NOTE | 2019-06-14 14:09 | NUR ---
DR. ALCANTARA AND TATIANA Calabrese AT BEDSIDE FOR CLOSED REDUCTION OF LEFT ANKLE. PATIENT ATTACHED TO ETCO2 AIRWAY INTACT. PATIENT WEARING 3L/NC. PATIENT ON LONG GOODS DRIER. RIGHT AC 20 GUAGE PATENT.
--- NOTE | 2019-06-14 14:12 | NUR ---
CLOSED REDUCTION COMPLETE. PATIENT AWAKE, ALERT, ORIENTED X 3.
--- NOTE | 2019-06-14 14:13 | NUR ---
CONSENT FOR CLOSED REDUCTION OF LEFT ANKLE COMPLETED
--- NOTE | 2019-06-14 14:43 | Diagnostic Imaging Report ---
Ankle complete CPT CODE: 86101 HISTORY: Fracture reduction TECHNIQUE: Three views left ankle obtained COMPARISON: Ankle x-rays 1334 hours. FINDINGS: Trimalleolar fracture has been reduced with the fracture fragments in near anatomic alignment. Overlying splint has been applied. No new fractures are identified. IMPRESSION: Reduction of trimalleolar fracture into near-anatomic alignment. Signed by: Dr. Lee Ford MD on 06/14/2019 2:40 PM
--- NOTE | 2019-06-14 15:10 | NUR ---
BORING MACHINE FEEDER AWARE PATIENT NEEDS TRANSPORT HOME. HE IS INITIATING TAXI VOUCHER
[2019-06-19] MEDS ORDERED: LOSARTAN POTASS25 MG PO (13:26)
[2019-06-19] MEDS ORDERED: CIMZIA400 MG/2 M INJ (13:28)
[2019-06-19] MEDS ORDERED: tylenol 4 PO (13:28)
== END 2019-06-14 15:52 | disposition home or self-care (01) ==
LOC: ER 12:59
DX: S82.852A Displaced trimalleolar fracture of left lower leg, initial encounter for closed fracture (principal); S93.05XA Dislocation of left ankle joint, initial encounter; X50.1XXA Overexertion from prolonged static or awkward postures, initial encounter; Y92.008 Other place in unspecified non-institutional (private) residence as the place of occurrence of the external cause; I10 Essential (primary) hypertension; E11.9 Type 2 diabetes mellitus without complications; I25.2 Old myocardial infarction; Z95.1 Presence of aortocoronary bypass graft; Z95.810 Presence of automatic (implantable) cardiac defibrillator
CPT/HCPCS: 27818; 27842; 73562; 73610; 99284; J2270; J2405; J2704

== ENCOUNTER → 2019-06-23 | Day surgery (SDC) | payer OTHER ==
[2019-06-19 13:12] LABS: BASOPHILS % 0.5 % (0.0-1.0); EOSINOPHILS # (AUTO) 0.2 (0.0-0.4); EOSINOPHILS % 2.8 % (0.0-6.0); HEMATOCRIT 35.7 % (34.2-44.1); HEMOGLOBIN 12.1 g/dL (12.0-16.0); LYMPHOCYTES % 34.9 % (18.0-39.1); MEAN CORPUSCULAR HEMOGLOBIN 28.8 pg (28-32); MEAN CORPUSCULAR HGB CONC 33.9 g/dL (31-35); MONOCYTES # (AUTO) 0.6 (0.2-0.8); MONOCYTES % 9.9 % (4.4-11.3); NEUTROPHILS % 51.6 % (38.7-80.0); PLATELET COUNT 221 x10e3/uL (140-360); RED CELL DISTRIBUTION WIDTH 12.6 % (11.7-14.4)
--- NOTE | 2019-06-19 13:20 | Diagnostic Imaging Report ---
EXAMINATION: CHEST 2 VIEWS INDICATION: Pre-operative COMPARISON: None FINDINGS: LINES/TUBES:Left chest pacer. LUNGS:The lungs are hyperinflated. Apical pleural parenchymal thickening/scarring. No focal consolidation or pulmonary edema. PLEURA:No pleural effusion or pneumothorax. MEDIASTINUM:The cardiomediastinal silhouette appears normal in size and shape. Atherosclerotic calcifications of the thoracic aorta. BONES/SOFT TISSUES:No acute osseous injury. Sternotomy wires intact. ABDOMEN:No free air under the diaphragm. IMPRESSION: Hyperinflated lungs. No focal pneumonia or pulmonary edema. Signed by: Marina Vela MD on 06/19/2019 1:17 PM
[2019-06-19 13:29] LABS: ANION GAP 12.8 mmol/L (8-16); BLOOD UREA NITROGEN 11 mg/dL (7-26); BUN/CREATININE RATIO 13 (6-25); CALCIUM 9.6 mg/dL (8.4-10.2); CARBON DIOXIDE 29 mmol/L (22-29); CHLORIDE 101 mmol/L (98-107); CREATININE, SERUM 0.83 mg/dL (0.57-1.11); EST GLOMERULAR FILTRATION RATE > 60 ML/MIN (60-); GLUCOSE 132 mg/dL (74-118); POTASSIUM 3.8 mmol/L (3.5-5.1); SODIUM 139 mmol/L (136-145)
[~2019-06-23] MED LIST changes: +BUPIVACAINE HCL 0.5% INJ 30 ML VIAL INJ ONE; +CEFAZOLIN SOD 1 GM/NS 50ML 50 ML IV ONE; +CIMZIA400 MG/2 M INJ; +DEXAMETHASONE SOD PHOS INJ 4 MG/ML VIAL ONE; +FENTANYL CITRATE/PF 100MCG/2 ML INJ ONE; +KETOROLAC TROMETHAMINE 30 MG/ML VIAL ONE; +LIDOCAINE HCL 2% LOCAL INJ 5 ML SDV VIAL INJ ONE; +LOSARTAN POTASS25 MG PO; +ONDANSETRON HCL INJ 2MG/ML 2ML 2 MG/ML VIAL ONE; +PROPOFOL IV EMULSION 10 MG/ML 20 ML VIAL ONE; +ROPIVACAINE 0.5% 5 MG/ML 30 ML SDV ONE; +SEVOFLURANE INHAL SOLN 250 ML PEN BTL ONE; +tylenol 4 PO
[2019-06-23 10:27] VITALS: BP 138/86
--- NOTE | 2019-06-23 12:33 | Operative Report ---
DATE OF PROCEDURE: 06/23/2019 SURGEON: Adrián Mercado MD [employer]ICATED TRUCK DRIVER: Bethel Farmer, certified PA. PREOPERATIVE DIAGNOSIS: Bimalleolar left ankle fracture. POSTOPERATIVE DIAGNOSIS: Bimalleolar left ankle fracture. PROCEDURE: Open reduction and internal fixation of left ankle. INDICATIONS: The patient is a 63-year-old lady, who has tripped and fell. She has a bimalleolar left ankle fracture. The findings and options have been discussed. We plan on an open reduction with internal fixation. The risks and benefits have been explained. She states she understands and wishes to proceed. PROCEDURE IN DETAIL: The patient was brought to the operating room and placed under general anesthetic. Her left lower extremity was prepped and draped in a sterile manner. A preoperative time-out was performed. The extremity was exsanguinated and a proximal tourniquet was inflated to 300 mmHg. Initial attention was directed towards the lateral aspect of the ankle. An incision was made and the fracture site was carefully exposed. Minimal periosteal stripping was performed. The fracture was reduced with a lobster claw reduction clamp. Care was taken to avoid excess pressure due to the soft nature of her bone due to rheumatoid arthritis. A seven hole one-third semitubular plate was then contoured to the distal fibula, this was fixed with a combination of compression and locking screws. An anterior to posterior lag screw was placed. Attention was then directed towards the medial aspect of the ankle. A curvilinear incision was made over the medial malleolus. The fracture site was also carefully identified and gently reduced. A single 35 mm partially cancellous screw was then used to fix the fracture. Once again, care was taken into account the soft nature of her bone. An intraoperative x-ray was taken and confirmed anatomic reduction of the fractures. There was good positioning of the hardware. The wounds were then irrigated and closed. Subcuticular Vicryl and nylon stitches were used to close the skin. A sterile bandage and a splint were applied. The patient was extubated and transported to the recovery room in stable condition. There was no blood loss and all needle and sponge counts were correct. Adrián Mercado MD DR/CHAPIN /[id number]
== END | disposition home or self-care (01) ==
LOC: OR 06:51
PROVIDERS: ATTEND Specialist
DX: S82.842A Displaced bimalleolar fracture of left lower leg, initial encounter for closed fracture (principal); E11.9 Type 2 diabetes mellitus without complications; M06.9 Rheumatoid arthritis, unspecified; J44.9 Chronic obstructive pulmonary disease, unspecified; I25.810 Atherosclerosis of coronary artery bypass graft(s) without angina pectoris; I10 Essential (primary) hypertension; E78.5 Hyperlipidemia, unspecified; N20.0 Calculus of kidney; F32.9 Major depressive disorder, single episode, unspecified; E03.9 Hypothyroidism, unspecified; K21.9 Gastro-esophageal reflux disease without esophagitis; B19.20 Unspecified viral hepatitis C without hepatic coma; W01.0XXA Fall on same level from slipping, tripping and stumbling without subsequent striking against object, initial encounter; Y93.E5 Activity, floor mopping and cleaning; Y92.009 Unspecified place in unspecified non-institutional (private) residence as the place of occurrence of the external cause; Y99.8 Other external cause status; Z01.812 Encounter for preprocedural laboratory examination; Z01.818 Encounter for other preprocedural examination; Z79.82 Long term (current) use of aspirin; Z79.84 Long term (current) use of oral hypoglycemic drugs; Z95.1 Presence of aortocoronary bypass graft
CPT/HCPCS: 27814; 36415 ×2; 71046; 76000; 80048; 82948; 85025; C1713 ×7; J0690; J1100; J1885; J2001; J2405; J2704; J2795; J3010

== ENCOUNTER 2020-08-17 10:07 | Inpatient (IN) | payer BC, MEDICARE ==
[~2020-08-17] VITALS: Ht 165.1 cm; Wt 63.5 kg
[~2020-08-17 10:07] MED LIST changes: -BUPIVACAINE HCL 0.5% INJ 30 ML VIAL INJ ONE; -CEFAZOLIN SOD 1 GM/NS 50ML 50 ML IV ONE; -DEXAMETHASONE SOD PHOS INJ 4 MG/ML VIAL ONE; -FENTANYL CITRATE/PF 100MCG/2 ML INJ ONE; -KETOROLAC TROMETHAMINE 30 MG/ML VIAL ONE; -LIDOCAINE HCL 2% LOCAL INJ 5 ML SDV VIAL INJ ONE; -ONDANSETRON HCL INJ 2MG/ML 2ML 2 MG/ML VIAL ONE; -PROPOFOL IV EMULSION 10 MG/ML 20 ML VIAL ONE; -ROPIVACAINE 0.5% 5 MG/ML 30 ML SDV ONE; -SEVOFLURANE INHAL SOLN 250 ML PEN BTL ONE
[2020-08-17] MEDS ORDERED: SODIUM CHLORIDE 0.9% 1000ML 1,000 ML IV STA ×2 (10:24→11:58)
[2020-08-17] MEDS ORDERED: FAMOTIDINE 20 MG/2 ML VIAL IV STA (10:24)
[2020-08-17] MEDS ORDERED: ONDANSETRON HCL INJ 2MG/ML 2ML 2 MG/ML VIAL IV STA (10:24)
[2020-08-17 11:01] LABS: BASOPHILS # (AUTO) 0.1 (0.0-0.1); BASOPHILS % 0.7 % (0.0-1.0); EOSINOPHILS # (AUTO) 0.1 (0.0-0.4); EOSINOPHILS % 1.9 % (0.0-6.0); HEMATOCRIT 35.1 % (34.2-44.1); HEMOGLOBIN 11.9 g/dL (12.0-16.0); LYMPHOCYTES # (AUTO) 1.8 (1.0-3.2); LYMPHOCYTES % 26.5 % (18.0-39.1); MEAN CORPUSCULAR HGB CONC 33.9 g/dL (31-35); MEAN CORPUSCULAR VOLUME 79.8 fL (81-99); MONOCYTES # (AUTO) 0.5 (0.2-0.8); MONOCYTES % 6.9 % (4.4-11.3); NEUTROPHILS # (AUTO) 4.4 (2.1-6.9); NEUTROPHILS % 63.4 % (38.7-80.0); PLATELET COUNT 203 x10e3/uL (140-360); RED CELL DISTRIBUTION WIDTH 14.3 % (11.7-14.4)
[2020-08-17 11:22] LABS: PARTIAL THROMBOPLASTIN TIME 24.9 seconds (23.8-35.5); PROTHROMBIN TIME 13.8 seconds (11.9-14.5)
[2020-08-17 11:31] LABS: ALBUMIN 3.9 g/dL (3.5-5.0); ALBUMIN/GLOBULIN RATIO 1.1 (0.8-2.0); ANION GAP 15.5 mmol/L (8-16); CREATININE, SERUM 0.96 mg/dL (0.57-1.11); MAGNESIUM 1.6 MG/DL (1.3-2.1); POTASSIUM 4.5 mmol/L (3.5-5.1)
[2020-08-17 11:39] LABS: CREATINE KINASE MB 1.1 ng/mL (0-5.0)
[2020-08-17 11:47] LABS: CLARITY,URINE CLEAR (CLEAR); COLOR,URINE YELLOW (YELLOW); LEUKOCYTE ESTERASE ,URINE NEGATIVE (NEGATIVE); NITRITE,URINE NEGATIVE (NEGATIVE)
[2020-08-17 11:48] LABS: KETONES,URINE 1+ (NEGATIVE); PROTEIN,URINE DIPSTICK 1+ (NEGATIVE); URINE UROBILINOGEN 0.2 mg/dL (0.2 - 1)
[2020-08-17] MEDS ORDERED: IOPAMIDOL 370 MG/ML 200 ML INFUS..BTL INJ ONE (11:51)
[2020-08-17] MEDS ORDERED: SODIUM CHLORIDE 0.9% 50ML 50 ML ONE (11:51)
[2020-08-17 11:57] LABS: BACTERIA,URINE RARE /HPF; EPITHELIAL CELLS,URINE FEW /LPF; RBC,URINE 0-5 /HPF (0-5); TRANSITIONAL EPI CELLS,URINE FEW; WBC,URINE (MAN) 0-5 /HPF (0-5)
[2020-08-17] MEDS: CEFEPIME 2 GM/NS 0.9% 100 ML 100 ML IV SCH (12:12)
[2020-08-17] MEDS ORDERED: VANCOMYCIN 1GM/NS 250 ML 250 ML IV ONE (13:00)
[2020-08-17 13:20] LABS: B-TYPE NATRIURETIC PEPTIDE2 116.8 pg/mL (0-100)
[2020-08-17] MEDS ORDERED: DEXTROSE 50% SYRINGE 50 ML IV PRN (14:00)
[2020-08-17] MEDS ORDERED: MORPHINE SULFATE INJ 4 MG/ML INJ 1ML IV PRN (14:00)
[2020-08-17] MEDS: SODIUM CHLORIDE 0.9% 1000ML 1,000 ML IV SCH (14:00)
[2020-08-17] MEDS: ONDANSETRON HCL INJ 2MG/ML 2ML 2 MG/ML VIAL IV PRN ×2 (15:14→19:24)
[2020-08-17] MEDS: METRONIDAZOLE 500MG/NS 100ML 100 ML IV SCH ×2 (15:21→21:15)
[2020-08-17] MEDS: INSULIN LISPRO 100 UNIT/1 ML 3ML VIAL SQ SCH ×2 (16:30→21:00)
[2020-08-17 18:28] LABS: CREATINE KINASE MB 1.6 ng/mL (0-5.0)
[2020-08-17 18:30] VITALS: BP 154/74
[2020-08-17 18:41] VITALS: BP 151/81
[2020-08-17 19:30] VITALS: BP 170/77
[2020-08-17 20:37] VITALS: BP 151/81
[2020-08-17] MEDS ORDERED: ACETAMINOPHEN 325 MG TAB PO PRN (22:30)
[2020-08-17] MEDS ORDERED: HYDRALAZINE HCL 20 MG/ML VIAL IV PRN (22:30)
[2020-08-18] VITALS (8 sets, daily range): BP systolic 118–147; BP diastolic 57–71
[2020-08-18] MEDS: METRONIDAZOLE 500MG/NS 100ML 100 ML IV SCH ×4 (03:00→20:43)
[2020-08-18] MEDS: PROMETHAZINE 25MG/ NS 50ML (IV) IV PRN ×2 (03:13→10:13)
[2020-08-18] MEDS: SODIUM CHLORIDE 0.9% 1000ML 1,000 ML IV SCH ×3 (05:53→23:42)
[2020-08-18 06:12] LABS: BASOPHILS % 0.2 % (0.0-1.0); HEMATOCRIT 33.1 % (34.2-44.1); HEMOGLOBIN 10.9 g/dL (12.0-16.0); LYMPHOCYTES # (AUTO) 1.3 (1.0-3.2); LYMPHOCYTES % 15.3 % (18.0-39.1); MEAN CORPUSCULAR HEMOGLOBIN 27.4 pg (28-32); MEAN CORPUSCULAR HGB CONC 32.9 g/dL (31-35); MEAN CORPUSCULAR VOLUME 83.2 fL (81-99); MONOCYTES # (AUTO) 0.6 (0.2-0.8); MONOCYTES % 7.3 % (4.4-11.3); NEUTROPHILS # (AUTO) 6.5 (2.1-6.9); NEUTROPHILS % 76.2 % (38.7-80.0); PLATELET COUNT 190 x10e3/uL (140-360); RED BLOOD COUNT 3.98 x10e6/uL (3.6-5.1); RED CELL DISTRIBUTION WIDTH 14.6 % (11.7-14.4)
[2020-08-18 06:52] LABS: ALANINE AMINOTRANSFERASE 16 IU/L (0-55); ALBUMIN 3.5 g/dL (3.5-5.0); ALBUMIN/GLOBULIN RATIO 1.1 (0.8-2.0); ALKALINE PHOSPHATASE 86 IU/L (40-150); ANION GAP 11.8 mmol/L (8-16); BLOOD UREA NITROGEN 19 mg/dL (7-26); BUN/CREATININE RATIO 23 (6-25); CALCIUM 8.2 mg/dL (8.4-10.2); CARBON DIOXIDE 23 mmol/L (22-29); CHLORIDE 107 mmol/L (98-107); CREATININE, SERUM 0.82 mg/dL (0.57-1.11); EST GLOMERULAR FILTRATION RATE > 60 ML/MIN (60-); GLUCOSE 160 mg/dL (74-118); POTASSIUM 3.8 mmol/L (3.5-5.1); SODIUM 138 mmol/L (136-145)
[2020-08-18 07:04] LABS: CHOL/HDL RATIO 2.9 (3.0-3.6); MAGNESIUM 1.7 MG/DL (1.3-2.1); PHOSPHORUS 3.1 MG/DL (2.3-4.7)
[2020-08-18 07:30] LABS: THYROID STIMULATING HORMONE 0.395 uIU/mL (0.350-4.940)
[2020-08-18] MEDS: INSULIN LISPRO 100 UNIT/1 ML 3ML VIAL SQ SCH ×4 (07:30→21:00)
[2020-08-18] MEDS: LEVOTHYROXINE SODIUM 88 MCG TAB PO SCH (07:30)
[2020-08-18 07:38] LABS: CREATINE KINASE MB 2.3 ng/mL (0-5.0)
[2020-08-18] MEDS: METOPROLOL TARTRATE 50 MG TAB PO SCH ×2 (09:00→16:58)
[2020-08-18] MEDS: ATORVASTATIN 40 MG TAB PO SCH (09:00)
[2020-08-18] MEDS: DULOXETINE HCL 30 MG DELAYED RELEASE PO SCH (09:00)
[2020-08-18] MEDS: LOSARTAN POTASSIUM 25 MG TAB PO SCH (09:00)
[2020-08-18] MEDS: PANTOPRAZOLE SOD 40 MG TABEC PO SCH (09:00)
[2020-08-18] MEDS: ASPIRIN 81 MG CHEW TAB PO SCH (09:00)
[2020-08-18] MEDS: FAMOTIDINE 20 MG/2 ML VIAL IV SCH ×2 (09:00→16:58)
[2020-08-18] MEDS: FAMOTIDINE 20 MG TAB PO SCH ×2 (09:00→16:58)
[2020-08-18] MEDS: MONTELUKAST SODIUM 10 MG TAB PO SCH (09:00)
[2020-08-18] MEDS: CEFEPIME 2 GM/NS 0.9% 100 ML 100 ML IV SCH ×3 (12:00→23:37)
[2020-08-18 14:01] LABS: CREATINE KINASE MB 2.4 ng/mL (0-5.0)
[2020-08-19] VITALS (8 sets, daily range): BP systolic 138–157; BP diastolic 69–92
[2020-08-19] MEDS: METRONIDAZOLE 500MG/NS 100ML 100 ML IV SCH ×3 (03:00→22:05)
[2020-08-19 05:29] LABS: BASOPHILS % 0.4 % (0.0-1.0); EOSINOPHILS # (AUTO) 0.2 (0.0-0.4); EOSINOPHILS % 2.4 % (0.0-6.0); HEMATOCRIT 30.1 % (34.2-44.1); LYMPHOCYTES # (AUTO) 2.4 (1.0-3.2); MEAN CORPUSCULAR HEMOGLOBIN 27.6 pg (28-32); MEAN CORPUSCULAR HGB CONC 33.2 g/dL (31-35); MEAN CORPUSCULAR VOLUME 83.1 fL (81-99); MONOCYTES # (AUTO) 0.6 (0.2-0.8); MONOCYTES % 8.4 % (4.4-11.3); NEUTROPHILS # (AUTO) 3.6 (2.1-6.9); NEUTROPHILS % 52.5 % (38.7-80.0); PLATELET COUNT 153 x10e3/uL (140-360); RED BLOOD COUNT 3.62 x10e6/uL (3.6-5.1); RED CELL DISTRIBUTION WIDTH 14.6 % (11.7-14.4)
[2020-08-19 05:57] LABS: ANION GAP 9.2 mmol/L (8-16); BLOOD UREA NITROGEN 12 mg/dL (7-26); BUN/CREATININE RATIO 16 (6-25); CALCIUM 7.8 mg/dL (8.4-10.2); CARBON DIOXIDE 22 mmol/L (22-29); CHLORIDE 112 mmol/L (98-107); CREATININE, SERUM 0.77 mg/dL (0.57-1.11); EST GLOMERULAR FILTRATION RATE > 60 ML/MIN (60-); GLUCOSE 102 mg/dL (74-118); POTASSIUM 3.2 mmol/L (3.5-5.1); SODIUM 140 mmol/L (136-145)
[2020-08-19] MEDS: SODIUM CHLORIDE 0.9% 1000ML 1,000 ML IV SCH ×3 (06:00→21:45)
[2020-08-19] MEDS: INSULIN LISPRO 100 UNIT/1 ML 3ML VIAL SQ SCH ×4 (07:30→21:40)
[2020-08-19] MEDS: ASPIRIN 81 MG CHEW TAB PO SCH (09:10)
[2020-08-19] MEDS: DULOXETINE HCL 30 MG DELAYED RELEASE PO SCH (09:10)
[2020-08-19] MEDS: FAMOTIDINE 20 MG TAB PO SCH (09:10)
[2020-08-19] MEDS: PANTOPRAZOLE SOD 40 MG TABEC PO SCH (09:10)
[2020-08-19] MEDS: MONTELUKAST SODIUM 10 MG TAB PO SCH (09:10)
[2020-08-19] MEDS: LOSARTAN POTASSIUM 25 MG TAB PO SCH (09:10)
[2020-08-19] MEDS: LEVOTHYROXINE SODIUM 88 MCG TAB PO SCH (09:10)
[2020-08-19] MEDS: ATORVASTATIN 40 MG TAB PO SCH (09:10)
[2020-08-19] MEDS: FAMOTIDINE 20 MG/2 ML VIAL IV SCH ×2 (09:10→16:45)
[2020-08-19] MEDS: METOPROLOL TARTRATE 50 MG TAB PO SCH ×2 (09:10→16:45)
[2020-08-19] MEDS ORDERED: LEXAPRO10 MG PO (09:13)
[2020-08-19] MEDS: ONDANSETRON HCL INJ 2MG/ML 2ML 2 MG/ML VIAL IV PRN (12:30)
[2020-08-19] MEDS: CEFEPIME 2 GM/NS 0.9% 100 ML 100 ML IV SCH (12:30)
[2020-08-19] MEDS ORDERED: POTASSIUM CHLORIDE 20 MEQ TAB CR PO ONE (16:30)
[2020-08-19] MEDS ORDERED: MECLIZINE HCL 12.5 MG TAB PO ONE (16:30)
[2020-08-19] MEDS: PROMETHAZINE 25MG/ NS 50ML (IV) IV PRN (21:42)
[2020-08-20] VITALS (9 sets, daily range): BP systolic 127–176; BP diastolic 64–97
[2020-08-20 05:52] LABS: BASOPHILS % 0.7 % (0.0-1.0); EOSINOPHILS # (AUTO) 0.2 (0.0-0.4); EOSINOPHILS % 4.5 % (0.0-6.0); HEMATOCRIT 30.4 % (34.2-44.1); LYMPHOCYTES % 36.4 % (18.0-39.1); MEAN CORPUSCULAR HEMOGLOBIN 27.2 pg (28-32); MEAN CORPUSCULAR HGB CONC 32.9 g/dL (31-35); MEAN CORPUSCULAR VOLUME 82.6 fL (81-99); MONOCYTES # (AUTO) 0.6 (0.2-0.8); MONOCYTES % 10.7 % (4.4-11.3); NEUTROPHILS # (AUTO) 2.5 (2.1-6.9); NEUTROPHILS % 46.4 % (38.7-80.0); PLATELET COUNT 153 x10e3/uL (140-360); RED BLOOD COUNT 3.68 x10e6/uL (3.6-5.1); RED CELL DISTRIBUTION WIDTH 14.8 % (11.7-14.4)
[2020-08-20] MEDS: SODIUM CHLORIDE 0.9% 1000ML 1,000 ML IV SCH ×3 (06:04→22:00)
[2020-08-20 06:09] LABS: ANION GAP 8.3 mmol/L (8-16); BLOOD UREA NITROGEN 9 mg/dL (7-26); BUN/CREATININE RATIO 12 (6-25); CALCIUM 7.9 mg/dL (8.4-10.2); CARBON DIOXIDE 22 mmol/L (22-29); CHLORIDE 112 mmol/L (98-107); CREATININE, SERUM 0.77 mg/dL (0.57-1.11); EST GLOMERULAR FILTRATION RATE > 60 ML/MIN (60-); GLUCOSE 109 mg/dL (74-118); POTASSIUM 3.3 mmol/L (3.5-5.1); SODIUM 139 mmol/L (136-145)
[2020-08-20] MEDS: INSULIN LISPRO 100 UNIT/1 ML 3ML VIAL SQ SCH ×4 (07:30→20:31)
[2020-08-20] MEDS: LEVOTHYROXINE SODIUM 88 MCG TAB PO SCH (08:30)
[2020-08-20] MEDS ORDERED: D5.45%NS/KCL 20MEQ 1,000 ML IV ONE (09:00)
[2020-08-20] MEDS: PROMETHAZINE 25MG/ NS 50ML (IV) IV PRN ×2 (09:01→19:16)
[2020-08-20] MEDS: FAMOTIDINE 20 MG/2 ML VIAL IV SCH ×2 (09:09→16:58)
[2020-08-20] MEDS: LOSARTAN POTASSIUM 25 MG TAB PO SCH (09:10)
[2020-08-20] MEDS: DULOXETINE HCL 30 MG DELAYED RELEASE PO SCH (09:10)
[2020-08-20] MEDS: ASPIRIN 81 MG CHEW TAB PO SCH (09:10)
[2020-08-20] MEDS: ATORVASTATIN 40 MG TAB PO SCH (09:10)
[2020-08-20] MEDS: PANTOPRAZOLE SOD 40 MG TABEC PO SCH (09:11)
[2020-08-20] MEDS: MONTELUKAST SODIUM 10 MG TAB PO SCH (09:11)
[2020-08-20] MEDS: METOPROLOL TARTRATE 50 MG TAB PO SCH ×2 (09:11→16:59)
[2020-08-20] MEDS: METRONIDAZOLE 500MG/NS 100ML 100 ML IV SCH ×2 (09:38→20:47)
[2020-08-20] MEDS: CEFTRIAXONE SOD 1 GM/NS 50 ML 50 ML IV SCH (12:00)
[2020-08-21] MEDS: PROMETHAZINE 25MG/ NS 50ML (IV) IV PRN ×3 (05:22→18:43)
[2020-08-21 05:27] VITALS: BP 161/87
[2020-08-21] MEDS: SODIUM CHLORIDE 0.9% 1000ML 1,000 ML IV SCH ×3 (06:07→18:43)
[2020-08-21 06:35] LABS: BASOPHILS % 0.5 % (0.0-1.0); EOSINOPHILS # (AUTO) 0.1 (0.0-0.4); EOSINOPHILS % 1.8 % (0.0-6.0); HEMATOCRIT 32.1 % (34.2-44.1); LYMPHOCYTES # (AUTO) 1.5 (1.0-3.2); LYMPHOCYTES % 27.7 % (18.0-39.1); MEAN CORPUSCULAR HGB CONC 34.3 g/dL (31-35); MEAN CORPUSCULAR VOLUME 78.7 fL (81-99); MONOCYTES # (AUTO) 0.5 (0.2-0.8); MONOCYTES % 9.2 % (4.4-11.3); NEUTROPHILS # (AUTO) 3.3 (2.1-6.9); NEUTROPHILS % 59.2 % (38.7-80.0); PLATELET COUNT 175 x10e3/uL (140-360); RED BLOOD COUNT 4.08 x10e6/uL (3.6-5.1); RED CELL DISTRIBUTION WIDTH 14.4 % (11.7-14.4)
[2020-08-21 07:03] LABS: ANION GAP 11.3 mmol/L (8-16); BLOOD UREA NITROGEN 8 mg/dL (7-26); BUN/CREATININE RATIO 11 (6-25); CALCIUM 8.1 mg/dL (8.4-10.2); CARBON DIOXIDE 22 mmol/L (22-29); CHLORIDE 107 mmol/L (98-107); CREATININE, SERUM 0.74 mg/dL (0.57-1.11); EST GLOMERULAR FILTRATION RATE > 60 ML/MIN (60-); GLUCOSE 158 mg/dL (74-118); POTASSIUM 3.3 mmol/L (3.5-5.1); SODIUM 137 mmol/L (136-145)
[2020-08-21] MEDS: METOPROLOL TARTRATE 50 MG TAB PO SCH ×2 (08:36→16:42)
[2020-08-21] MEDS: ATORVASTATIN 40 MG TAB PO SCH (08:36)
[2020-08-21] MEDS: PANTOPRAZOLE SOD 40 MG TABEC PO SCH (08:36)
[2020-08-21] MEDS: DULOXETINE HCL 30 MG DELAYED RELEASE PO SCH ×2 (08:36→09:00)
[2020-08-21] MEDS: LEVOTHYROXINE SODIUM 88 MCG TAB PO SCH (08:36)
[2020-08-21] MEDS: MONTELUKAST SODIUM 10 MG TAB PO SCH (08:36)
[2020-08-21] MEDS: ASPIRIN 81 MG CHEW TAB PO SCH (08:36)
[2020-08-21] MEDS: FAMOTIDINE 20 MG/2 ML VIAL IV SCH ×2 (08:36→16:42)
[2020-08-21] MEDS: LOSARTAN POTASSIUM 25 MG TAB PO SCH (08:36)
[2020-08-21] MEDS: ASPIRIN 325 MG TAB PO SCH (08:36)
[2020-08-21] MEDS: INSULIN LISPRO 100 UNIT/1 ML 3ML VIAL SQ SCH ×4 (08:36→20:38)
[2020-08-21] MEDS: METRONIDAZOLE 500MG/NS 100ML 100 ML IV SCH ×3 (09:00→21:30)
[2020-08-21 09:16] VITALS: BP 181/84
[2020-08-21] MEDS: CEFTRIAXONE SOD 1 GM/NS 50 ML 50 ML IV SCH (10:51)
[2020-08-21 11:30] VITALS: BP 173/84
[2020-08-21] MEDS ORDERED: POTASSIUM CHLORIDE 20MEQ/100ML 100 ML IV ONE (15:00)
[2020-08-21 16:09] VITALS: BP 154/92
[2020-08-21 20:00] VITALS: BP 150/98
[2020-08-21 22:45] VITALS: BP 150/98
[2020-08-22] VITALS (8 sets, daily range): BP systolic 110–174; BP diastolic 60–94
[2020-08-22] MEDS: SODIUM CHLORIDE 0.9% 1000ML 1,000 ML IV SCH ×3 (05:10→19:05)
[2020-08-22 05:13] LABS: BASOPHILS % 0.6 % (0.0-1.0); EOSINOPHILS # (AUTO) 0.1 (0.0-0.4); EOSINOPHILS % 1.9 % (0.0-6.0); HEMOGLOBIN 10.2 g/dL (12.0-16.0); LYMPHOCYTES # (AUTO) 2.2 (1.0-3.2); LYMPHOCYTES % 34.6 % (18.0-39.1); MEAN CORPUSCULAR HEMOGLOBIN 26.8 pg (28-32); MEAN CORPUSCULAR VOLUME 78.9 fL (81-99); MONOCYTES # (AUTO) 0.7 (0.2-0.8); MONOCYTES % 10.2 % (4.4-11.3); NEUTROPHILS # (AUTO) 3.3 (2.1-6.9); NEUTROPHILS % 51.3 % (38.7-80.0); PLATELET COUNT 164 x10e3/uL (140-360); RED CELL DISTRIBUTION WIDTH 14.7 % (11.7-14.4)
[2020-08-22 05:31] LABS: ANION GAP 13.3 mmol/L (8-16); BLOOD UREA NITROGEN 9 mg/dL (7-26); BUN/CREATININE RATIO 13 (6-25); CALCIUM 7.6 mg/dL (8.4-10.2); CARBON DIOXIDE 20 mmol/L (22-29); CHLORIDE 109 mmol/L (98-107); CREATININE, SERUM 0.72 mg/dL (0.57-1.11); EST GLOMERULAR FILTRATION RATE > 60 ML/MIN (60-); GLUCOSE 103 mg/dL (74-118); MAGNESIUM 1.4 MG/DL (1.3-2.1); PHOSPHORUS 2.2 MG/DL (2.3-4.7); POTASSIUM 3.3 mmol/L (3.5-5.1); SODIUM 139 mmol/L (136-145)
[2020-08-22] MEDS: LEVOTHYROXINE SODIUM 88 MCG TAB PO SCH (07:30)
[2020-08-22] MEDS: INSULIN LISPRO 100 UNIT/1 ML 3ML VIAL SQ SCH ×4 (07:30→21:00)
[2020-08-22] MEDS: METRONIDAZOLE 500MG/NS 100ML 100 ML IV SCH ×2 (08:08→21:31)
[2020-08-22] MEDS: PROMETHAZINE 25MG/ NS 50ML (IV) IV PRN ×2 (08:09→23:15)
[2020-08-22] MEDS: ASPIRIN 325 MG TAB PO SCH (09:00)
[2020-08-22] MEDS: ASPIRIN 81 MG CHEW TAB PO SCH (09:00)
[2020-08-22] MEDS: LOSARTAN POTASSIUM 25 MG TAB PO SCH (09:00)
[2020-08-22] MEDS: PANTOPRAZOLE SOD 40 MG TABEC PO SCH (09:00)
[2020-08-22] MEDS: METOPROLOL TARTRATE 50 MG TAB PO SCH ×2 (09:00→16:11)
[2020-08-22] MEDS: ATORVASTATIN 40 MG TAB PO SCH (09:00)
[2020-08-22] MEDS: FAMOTIDINE 20 MG/2 ML VIAL IV SCH ×2 (10:29→16:11)
[2020-08-22] MEDS: CEFTRIAXONE SOD 1 GM/NS 50 ML 50 ML IV SCH (10:31)
[2020-08-22] MEDS ORDERED: EPHEDRINE SULFATE INJ 50 MG/ML VIAL ONE (12:09)
[2020-08-22] MEDS ORDERED: LIDOCAINE HCL 2% LOCAL INJ 5 ML SDV VIAL INJ ONE (12:09)
[2020-08-22] MEDS ORDERED: PROPOFOL IV EMULSION 10 MG/ML 20 ML VIAL ONE (12:09)
[2020-08-22] MEDS ORDERED: POTASSIUM CHLORIDE 20 MEQ TAB CR PO ONE (18:00)
[2020-08-23] VITALS (7 sets, daily range): BP systolic 132–163; BP diastolic 56–91
[2020-08-23 05:05] LABS: BASOPHILS % 0.5 % (0.0-1.0); EOSINOPHILS # (AUTO) 0.1 (0.0-0.4); EOSINOPHILS % 2.1 % (0.0-6.0); HEMATOCRIT 30.1 % (34.2-44.1); HEMOGLOBIN 10.2 g/dL (12.0-16.0); LYMPHOCYTES # (AUTO) 1.7 (1.0-3.2); LYMPHOCYTES % 29.2 % (18.0-39.1); MEAN CORPUSCULAR HEMOGLOBIN 26.9 pg (28-32); MEAN CORPUSCULAR HGB CONC 33.9 g/dL (31-35); MEAN CORPUSCULAR VOLUME 79.4 fL (81-99); MONOCYTES # (AUTO) 0.6 (0.2-0.8); MONOCYTES % 10.5 % (4.4-11.3); NEUTROPHILS # (AUTO) 3.1 (2.1-6.9); NEUTROPHILS % 55.2 % (38.7-80.0); PLATELET COUNT 153 x10e3/uL (140-360); RED BLOOD COUNT 3.79 x10e6/uL (3.6-5.1); RED CELL DISTRIBUTION WIDTH 14.9 % (11.7-14.4)
[2020-08-23 05:18] LABS: BLOOD UREA NITROGEN 8 mg/dL (7-26); BUN/CREATININE RATIO 12 (6-25); CALCIUM 7.4 mg/dL (8.4-10.2); CARBON DIOXIDE 17 mmol/L (22-29); CHLORIDE 110 mmol/L (98-107); CREATININE, SERUM 0.67 mg/dL (0.57-1.11); EST GLOMERULAR FILTRATION RATE > 60 ML/MIN (60-); GLUCOSE 80 mg/dL (74-118); SODIUM 139 mmol/L (136-145)
[2020-08-23] MEDS: SODIUM CHLORIDE 0.9% 1000ML 1,000 ML IV SCH ×2 (06:00→13:26)
[2020-08-23] MEDS: LEVOTHYROXINE SODIUM 88 MCG TAB PO SCH (07:24)
[2020-08-23] MEDS: INSULIN LISPRO 100 UNIT/1 ML 3ML VIAL SQ SCH ×3 (07:30→16:30)
[2020-08-23] MEDS: ASPIRIN 325 MG TAB PO SCH (08:29)
[2020-08-23] MEDS: METRONIDAZOLE 500MG/NS 100ML 100 ML IV SCH (08:29)
[2020-08-23] MEDS: FAMOTIDINE 20 MG/2 ML VIAL IV SCH ×2 (08:29→16:53)
[2020-08-23] MEDS: METOPROLOL TARTRATE 50 MG TAB PO SCH ×2 (08:30→16:54)
[2020-08-23] MEDS: ATORVASTATIN 40 MG TAB PO SCH (08:30)
[2020-08-23] MEDS: LOSARTAN POTASSIUM 25 MG TAB PO SCH (08:30)
[2020-08-23] MEDS: PANTOPRAZOLE SOD 40 MG TABEC PO SCH (08:31)
[2020-08-23] MEDS: CEFTRIAXONE SOD 1 GM/NS 50 ML 50 ML IV SCH (11:24)
[2020-08-23] MEDS ORDERED: POTASSIUM CHLORIDE 20 MEQ TAB CR PO NR (14:30)
[2020-08-23] MEDS ORDERED: MAGNESIUM SULFATE 2GM/50ML 50 ML IV ONE (14:30)
[2020-08-23] MEDS ORDERED: FLAGYL500 MG PO (17:42)
[2020-08-23] MEDS ORDERED: PROMETHAZINE HC25 M1 PO (17:42)
[2020-08-23] MEDS ORDERED: CEFUROXIME250 MG PO (17:42)
[2020-08-23] MEDS ORDERED: ACETAMINOPHEN325 M1 PO (17:42)
[2020-08-23] MEDS ORDERED: MAGNESIUM OXID400 MG PO (17:54)
[2020-08-23] MEDS ORDERED: POTASSIUM CHLO20 ME1 PO (17:54)
[2020-09-15] MEDS ORDERED: CERTOLIZUMAB PEGOL SC SCH (09:00)
== END 2020-08-23 19:04 | disposition home health service (06) | DRG 872 ==
LOC: ER 10:22 → ERHOLD 13:56 → MED/SURG2 17:32
PROVIDERS: ADMIT Internal Medicine; ATTEND Internal Medicine
PROC: 0DB78ZX Excision of Stomach, Pylorus, Via Natural or Artificial Opening Endoscopic, Diagnostic (ICD-10-PCS; 2020-08-22)
PROC: 0DB38ZX Excision of Lower Esophagus, Via Natural or Artificial Opening Endoscopic, Diagnostic (ICD-10-PCS; principal; 2020-08-22 13:00)
DX: A41.9 Sepsis, unspecified organism (principal); D84.81 Immunodeficiency due to conditions classified elsewhere; K52.9 Noninfective gastroenteritis and colitis, unspecified; R65.20 Severe sepsis without septic shock; I25.10 Atherosclerotic heart disease of native coronary artery without angina pectoris; E11.65 Type 2 diabetes mellitus with hyperglycemia; Z86.19 Personal history of other infectious and parasitic diseases; I25.2 Old myocardial infarction; Z87.442 Personal history of urinary calculi; Z95.810 Presence of automatic (implantable) cardiac defibrillator; Z95.1 Presence of aortocoronary bypass graft; E86.0 Dehydration; I10 Essential (primary) hypertension; E03.9 Hypothyroidism, unspecified; E78.5 Hyperlipidemia, unspecified; M06.9 Rheumatoid arthritis, unspecified; E87.6 Hypokalemia; E83.42 Hypomagnesemia; R42 Dizziness and giddiness; Z90.49 Acquired absence of other specified parts of digestive tract; K44.9 Diaphragmatic hernia without obstruction or gangrene; K29.70 Gastritis, unspecified, without bleeding; Z20.822 Contact with and (suspected) exposure to COVID-19
CPT/HCPCS: 36415; 43239; 70450; 70486; 71045; 74177; 80048; 80053; 80061; 81001; 82550; 82553; 82607; 82948; 83036; 83090; 83605; 83735; 83880; 84100; 84443; 84484; 85025; 85610; 85730; 86592; 87040; 87086; 87400; 88305; 88312; 93005; 93880; 97139; 99251; 99284; J0360; J0696; J2001; J2270; J2405; J2550; J3370; J3475; J3480; J7030; Q9967; U0002

== ENCOUNTER → 2020-08-25 | Outpatient (CLI) | payer BC, MEDICARE ==
[~2020-08-25] MED LIST changes: +ACETAMINOPHEN325 M1 PO; +CEFUROXIME250 MG PO; +FLAGYL500 MG PO; +LEXAPRO10 MG PO; +MAGNESIUM OXID400 MG PO; +POTASSIUM CHLO20 ME1 PO; +PROMETHAZINE HC25 M1 PO
== END ==
LOC: CT 16:23
PROVIDERS: ATTEND Internal Medicine
DX: I63.9 Cerebral infarction, unspecified (principal)
CPT/HCPCS: 70450

== ENCOUNTER 2021-03-03 15:44 | Emergency (ER) | payer BC, MEDICARE, OTHER ==
[~2021-03-03] VITALS: Ht 157.5 cm; Wt 77.1 kg
[2021-03-03] MEDS ORDERED: HYDROCODONE/APAP 5MG-325MG TAB PO ONE (19:30)
[2021-03-03] MEDS ORDERED: BUPIVACAINE HCL 0.25% 10ML MPF VIAL INJ ONE (19:45)
[2021-03-03] MEDS ORDERED: HYDROCODONE/APAP 5MG-325MG TAB ONE (19:55)
[2021-03-03] MEDS ORDERED: HYDROCODON-ACE1 EAC9 PO (21:06)
== END 2021-03-03 21:21 | disposition home or self-care (01) ==
LOC: ER 19:35
DX: S62.502A Fracture of unspecified phalanx of left thumb, initial encounter for closed fracture (principal); S00.83XA Contusion of other part of head, initial encounter; S80.02XA Contusion of left knee, initial encounter; W01.0XXA Fall on same level from slipping, tripping and stumbling without subsequent striking against object, initial encounter; Y93.H2 Activity, gardening and landscaping; Y92.007 Garden or yard of unspecified non-institutional (private) residence as the place of occurrence of the external cause; I10 Essential (primary) hypertension; E11.9 Type 2 diabetes mellitus without complications; I50.9 Heart failure, unspecified; B19.20 Unspecified viral hepatitis C without hepatic coma; Z95.1 Presence of aortocoronary bypass graft; Z95.810 Presence of automatic (implantable) cardiac defibrillator
CPT/HCPCS: 70450; 72125; 99284

== ENCOUNTER → 2021-03-14 | Day surgery (SDC) | payer BC, MEDICARE ==
[2021-03-13 12:19] LABS: BASOPHILS # (AUTO) 0.1 (0.0-0.1); BASOPHILS % 1.4 % (0.0-1.0); EOSINOPHILS # (AUTO) 0.2 (0.0-0.4); EOSINOPHILS % 4.5 % (0.0-6.0); HEMATOCRIT 34.5 % (34.2-44.1); HEMOGLOBIN 11.1 g/dL (12.0-16.0); LYMPHOCYTES # (AUTO) 1.8 (1.0-3.2); MEAN CORPUSCULAR HEMOGLOBIN 26.1 pg (28-32); MEAN CORPUSCULAR HGB CONC 32.2 g/dL (31-35); MEAN CORPUSCULAR VOLUME 81.2 fL (81-99); MONOCYTES # (AUTO) 0.5 (0.2-0.8); MONOCYTES % 10.4 % (4.4-11.3); NEUTROPHILS # (AUTO) 1.9 (2.1-6.9); NEUTROPHILS % 42.2 % (38.7-80.0); PLATELET COUNT 211 x10e3/uL (140-360); RED BLOOD COUNT 4.25 x10e6/uL (3.6-5.1); RED CELL DISTRIBUTION WIDTH 16.5 % (11.7-14.4)
[2021-03-13 12:39] LABS: ANION GAP 12.9 mmol/L (8-16); CALCIUM 8.6 mg/dL (8.4-10.2); CREATININE, SERUM 0.92 mg/dL (0.57-1.11); POTASSIUM 3.9 mmol/L (3.5-5.1)
[~2021-03-14] MED LIST changes: +BUPIVACAINE HCL 0.5% 10ML MPF VIAL INJ ONE; +BUSPIRONE HCL10 MG PO; +CLOPIDOGREL75 MG PO; +DEXILANT60 MG PO; +EPHEDRINE SULFATE INJ 50 MG/ML VIAL ONE; +HYDROCODON-ACE1 EAC9 PO; +LIDOCAINE HCL 1% LOCAL INJ 20 ML VIAL ONE; +LIDOCAINE HCL 2% LOCAL INJ 5 ML SDV VIAL INJ ONE; +MIDAZOLAM HCL 2 MG/2 ML VIAL ONE; +POVIDONE IODINE 0.05% 0.05 % ML PO ONE; +PROPOFOL IV EMULSION 10 MG/ML 20 ML VIAL ONE; +SODIUM CHLORIDE 0.9% 50ML 100 ML ONE; +VITAMIN B12 INJ
[2021-03-14 09:23] VITALS: BP 139/74
== END | disposition home or self-care (01) ==
LOC: OR 05:17
PROVIDERS: ATTEND Orthopaedic Surgery
DX: S62.512A Displaced fracture of proximal phalanx of left thumb, initial encounter for closed fracture (principal); M06.9 Rheumatoid arthritis, unspecified; E11.9 Type 2 diabetes mellitus without complications; E05.90 Thyrotoxicosis, unspecified without thyrotoxic crisis or storm; K21.9 Gastro-esophageal reflux disease without esophagitis; I25.10 Atherosclerotic heart disease of native coronary artery without angina pectoris; I25.2 Old myocardial infarction; I63.9 Cerebral infarction, unspecified; G57.30 Lesion of lateral popliteal nerve, unspecified lower limb; M54.81 Occipital neuralgia; H35.20 Other non-diabetic proliferative retinopathy, unspecified eye; H53.8 Other visual disturbances; R26.89 Other abnormalities of gait and mobility; G32.81 Cerebellar ataxia in diseases classified elsewhere; G62.9 Polyneuropathy, unspecified; G61.81 Chronic inflammatory demyelinating polyneuritis; I69.811 Memory deficit following other cerebrovascular disease; R90.89 Other abnormal findings on diagnostic imaging of central nervous system; S92.902B Unspecified fracture of left foot, initial encounter for open fracture; M85.80 Other specified disorders of bone density and structure, unspecified site; Z86.19 Personal history of other infectious and parasitic diseases; Z95.1 Presence of aortocoronary bypass graft; Z01.810 Encounter for preprocedural cardiovascular examination; Z01.812 Encounter for preprocedural laboratory examination; Z01.818 Encounter for other preprocedural examination; Z20.822 Contact with and (suspected) exposure to COVID-19; Z87.442 Personal history of urinary calculi
CPT/HCPCS: 26727; 36415 ×2; 71046; 80048; 82948; 85025; 93005; C1713; J0690; J2001 ×2; J2250; J2704; U0002